=== PATIENT | male | born 1945 ===

== ENCOUNTER 2021-08-27 16:37 | Inpatient (IN) | payer MEDICARE ==
[2021-08-28] MEDS: LORazepam 2 MG/ML VIAL IM SCH ×2 (13:55→19:55)
[2021-08-28] MEDS ORDERED: HALOPERIDOL LACTATE 5 MG/1 ML INJ IM ONE (16:07)
--- NOTE | 2021-08-28 20:01 | Consultation ---
History of Present Illness - Reason for Consult Consult date: 08/28/21 Medical Management Requesting physician: LEE HERNÁNDEZ - History of Present Illness 76 YO Male with Vascular Dementia with Behavioral Disturbance, Cerebral Atherosclerosis, Encephalopathy, SANTA who is currently on Hospice Care. Pt is AND/DNR as per family request(). Pt is admitted to [facility] for psychiatric stabilization. Consult placed by Dr. Hernández for medical management. Patient seen and evaluated in the isolation room. Patient is confused and agitated and unable provide detailed history at time of evaluation. Patient remains agitated. No reports of fever, chills, chest pain, palpitation, productive cough, skin rash, recent contact, known exposure to COVID-19. Patient resting. Patient exhibits tangential thinking with diminished cognition. Past History Past Surgical History: No surgical history, Other (Reviewed) Social history: , lives with family Medications and Allergies Allergies Allergy/AdvReac Type Severity Reaction Status Date / Time No Known Allergies Allergy Verified 08/28/21 22:01 Home Medications Medication Instructions Recorded Confirmed Last Taken Type ALPRAZolam [Xanax TAB] 2 mg PO TID 08/27/21 08/27/21 Unknown History Acetaminophen [Aphen] 650 mg PO Q4HR 08/27/21 08/27/21 Unknown History Docusate Sodium [Colace CAP] 100 mg PO PRN 08/27/21 08/27/21 Unknown History Ferrous Sulfate [Feosol] 325 mg PO TID 08/27/21 08/27/21 Unknown History Folic Acid 1 mg PO DAILY 08/27/21 08/27/21 Unknown History Oxycodone HCl/Acetaminophen 1 tab PO Q6HR PRN 08/27/21 08/27/21 Unknown History [Percocet 10/325 mg] Active Meds: Active Medications Lorazepam (Lorazepam 1 Mg Tab) 1 mg PO Q6H PRN PRN Reason: Anxiety Lorazepam (Lorazepam 2 Mg/Ml Vial) 1 mg IM Q6H [facility] Last Admin: 08/28/21 13:55 Dose: 1 mg Exam - Constitutional General appearance: Present: no acute distress, cachectic - EENT Eyes: Present: PERRL ENT: clear oral mucosa, hearing decreased - Neck Neck: Present: supple, normal ROM - Respiratory Respiratory effort: normal Respiratory: bilateral: CTA - Cardiovascular Rhythm: regular Heart Sounds: Present: S1 & S2. Absent: rub, click - Extremities Extremities: pulses symmetrical, No edema Peripheral Pulses: within normal limits - Abdominal General gastrointestinal: Present: soft, non-tender, non-distended, normal bowel sounds Male genitourinary: Present: normal - Integumentary Integumentary: Present: clear, warm, dry - Musculoskeletal Musculoskeletal: gait normal, strength equal bilaterally - Psychiatric Psychiatric: no appropriate mood/affect, no intact judgment & insight, no memory intact, no cooperative, agitated - Neurologic Neurologic: CNII-XII intact, moves all extremities Assessment and Plan - Patient Problems (1) Vascular dementia with behavioral disturbance Current Visit: Yes Status: Acute Plan to address problem: Verbal prompting, verbal redirection, benzodiazepine therapy as clinically i ndicated. (2) Cerebral atherosclerosis Current Visit: Yes Status: Acute Plan to address problem: Risk factor reduction, antiplatelet therapy as clinically indicated, supportive care. (3) Encephalopathy Current Visit: Yes Status: Acute Plan to address problem: Supportive care, verbal redirection. Chronic in nature. (4) Generalized anxiety disorder Current Visit: Yes Status: Acute Plan to address problem: Benzodiazepine therapy as clinically indicated, continue medical management. (5) Malnutrition Current Visit: Yes Status: Acute Qualifiers: Protein-calorie malnutrition severity: moderate Plan to address problem: Dietary supplementation, increase protein intake. (6) Advance care planning Current Visit: Yes Status: Acute Plan to address problem: Disease education data, care plan discussed, diagnoses discussed, prognosis discussed. Patient is DNR as per request. Patient currently admitted to hospice care. +30 minutes.
[2021-08-29] MEDS: LORazepam 2 MG/ML VIAL IM SCH ×5 (01:36→23:02)
[2021-08-29] MEDS ORDERED: NON-FORMULARY EACH (Oxycodone Hcl/Acetaminophen [Percocet 10/325 Mg] 1 EACH Tablet) PO PRN (08:32)
--- NOTE | 2021-08-29 08:32 | History and Physical Report ---
GP History & Physical - History of Present Illness Date of admission: 08/28/21 Date of Examination: 08/29/21 Reason for Admission: Danger to self, Danger to others, Failure of Outpatient Treatment Chief Complaint: Hallucinations History of Present Illness: The patient is a 76 year old male with history of anxiety who was admitted for altered mental status. Per note, "the patient have been combative, and pushing his down the stairs, patient hallucinating for the past couple of weeks." The patient was seen this morning, he is confused, unable to engage. PAST PSYCHIATRIC HISTORY: Unable to obtain PAST MEDICAL HISTORY: None reported or document Family Psychiatric History: None reported or documented SOCIAL HISTORY Unable to obtain REVIEW OF SYSTEMS Unable to obtain MENTAL STATUS EXAMINATION Unable to obtain Diagnoses: Delusional Disorder Treatment Plan Patient admitted for inpatient psychiatric evaluation, medication adjustment and close monitoring The patient's behavior, mood, sleep and appetite will be closely monitored. Patient enrolled in individual and group therapeutic sessions and encouraged to attend. Patient provided with a safe and structured environment. Patient's physical health needs will be addressed by the Hospitalist. Hospitalist Consulted Labs including CBC, CMP, Lipid profile and Hemoglobin A1C levels ordered for baseline reference Social Assessment will be completed and the Medical Information Specialist will work with patient and family to ensure a suitable and safe disposition Medication adjustment will be made as clinically indicated Continue home meds Usual Wellness Taoism/Preservation: - Start Trazodone 50 mg po QHS & 50 mg po QHS PRN between 10 PM & 2 AM for insomnia - Start Melatonin 5 mg po QHS to promote circadian rhythm The patient agreed on the treatment plan, understood the risk, benefit, alternative treatment, potential consequence of no treatment, and gave informed consent. Estimated days: 7 Post hospital care: primary care provider, psychiatric provider Case staffed with Dr. Herndon Legal Status: InVoluntary Reaction to Hospitalization: Accepting Medications and Allergies Patient Problems: Current Active Problems Advance care planning (Acute) Cerebral atherosclerosis (Acute) Encephalopathy (Acute) Generalized anxiety disorder (Acute) Malnutrition (Acute) Vascular dementia with behavioral disturbance (Acute) Medications and Allergies Allergies Allergy/AdvReac Type Severity Reaction Status Date / Time No Known Allergies Allergy Verified 08/28/21 22:01 Home Medications Medication Instructions Recorded Confirmed Last Taken Type ALPRAZolam [Xanax TAB] 2 mg PO TID 08/27/21 08/27/21 Unknown History Acetaminophen [Aphen] 650 mg PO Q4HR 08/27/21 08/27/21 Unknown History Docusate Sodium [Colace CAP] 100 mg PO PRN 08/27/21 08/27/21 Unknown History Ferrous Sulfate [Feosol] 325 mg PO TID 08/27/21 08/27/21 Unknown History Folic Acid 1 mg PO DAILY 08/27/21 08/27/21 Unknown History Oxycodone HCl/Acetaminophen 1 tab PO Q6HR PRN 08/27/21 08/27/21 Unknown History [Percocet 10/325 mg] Active Meds: Active Medications Lorazepam (Lorazepam 1 Mg Tab) 1 mg PO Q6H PRN PRN Reason: Anxiety Lorazepam (Lorazepam 2 Mg/Ml Vial) 1 mg IM Q6H [facility] Last Admin: 08/29/21 01:36 Dose: 1 mg Results - Results Labs/Vitals: Last Vital Signs Temp 99.1 F 08/28/21 20:43 Pulse 108 H 08/29/21 01:25 Resp 18 08/28/21 20:43 BP 180/69 08/29/21 01:25 Pulse Ox 88 08/28/21 20:43 Physical Examination - Constitutional Vitals: Vital Signs Temp Pulse Resp BP Pulse Ox 99.1 F 108 H 18 180/69 88 08/28/21 20:43 08/29/21 01:25 08/28/21 20:43 08/29/21 01:25 08/28/21 20:43 Temperature -Last 24 Hours Temperature 99.1 F Temperature 97.7 F Mental Status Exam - Vital signs Last Vital Signs Temp 99.1 F 08/28/21 20:43 Pulse 108 H 08/29/21 01:25 Resp 18 08/28/21 20:43 BP 180/69 08/29/21 01:25 Pulse Ox 88 08/28/21 20:43 Physician Certification - Certification Statement Physician Certification Statement: This is an acknowledgement statement that GIANCARLO GILMORE is a 76 year old M who requires inpatient psychiatric admission for treatment which could reasonably be expected to improve the patient's condition for Estimated period of time patient will need to remain in the hospital: [ ] Plan for post-hospital care: [ ]
[2021-08-29] MEDS ORDERED: DOCUSATE SODIUM 100 MG CAP PO SCH (09:00)
[2021-08-29] MEDS ORDERED: ZIPRASIDONE MESYLATE 20 MG VIAL IM PRN (10:30)
[2021-08-29] MEDS: ACETAMINOPHEN 325 MG TAB PO SCH ×4 (12:24→22:58)
[2021-08-29] MEDS: FOLIC ACID 1 MG TAB PO SCH (12:25)
[2021-08-29] MEDS ORDERED: NON-FORMULARY EACH (Alprazolam [Xanax Tab] 2 MG Tablet) PO SCH (14:00)
[2021-08-29] MEDS: FERROUS SULFATE 325 MG TAB PO SCH ×2 (14:22→20:31)
[2021-08-30] MEDS: ACETAMINOPHEN 325 MG TAB PO SCH ×6 (02:05→21:18)
[2021-08-30] MEDS: LORazepam 2 MG/ML VIAL IM SCH ×4 (05:04→23:50)
--- NOTE | 2021-08-30 09:41 | Progress Note ---
Subjective Date of service: 08/30/21 Subjective Comment: 08/30: The patient was seen this morning. He is calm. He continues to be confused. Unable to assess SI/HI/ AVH due to current mentation. Start Haldol 2mg IM BID. REVIEW OF SYSTEMS Unable to obtain MENTAL STATUS EXAMINATION Unable to obtain Diagnoses: Delusional Disorder Treatment Plan Patient admitted for inpatient psychiatric evaluation, medication adjustment and close monitoring The patient's behavior, mood, sleep and appetite will be closely monitored. Patient enrolled in individual and group therapeutic sessions and encouraged to attend. Patient provided with a safe and structured environment. Patient's physical health needs will be addressed by the Hospitalist. Hospitalist Consulted Labs including CBC, CMP, Lipid profile and Hemoglobin A1C levels ordered for baseline reference Social Assessment will be completed and the Sound Assistant will work with patient and family to ensure a suitable and safe disposition Medication adjustment will be made as clinically indicated Continue home meds Usual Wellness Rastafarian/Preservation: - Start Trazodone 50 mg po QHS & 50 mg po QHS PRN between 10 PM & 2 AM for insomnia - Start Melatonin 5 mg po QHS to promote circadian rhythm The patient agreed on the treatment plan, understood the risk, benefit, alternative treatment, potential consequence of no treatment, and gave informed consent. Estimated days: 7 Post hospital care: primary care provider, psychiatric provider Case staffed with Dr. Herndon Legal Status: InVoluntary Reaction to Hospitalization: Accepting Medications and Allergies Medications and Allergies Allergies Allergy/AdvReac Type Severity Reaction Status Date / Time No Known Allergies Allergy Verified 08/28/21 22:01 Home Medications Medication Instructions Recorded Confirmed Last Taken Type ALPRAZolam [Xanax TAB] 2 mg PO TID 08/27/21 08/27/21 Unknown History Acetaminophen [Aphen] 650 mg PO Q4HR 08/27/21 08/27/21 Unknown History Docusate Sodium [Colace CAP] 100 mg PO PRN 08/27/21 08/27/21 Unknown History Ferrous Sulfate [Feosol] 325 mg PO TID 08/27/21 08/27/21 Unknown History Folic Acid 1 mg PO DAILY 08/27/21 08/27/21 Unknown History Oxycodone HCl/Acetaminophen 1 tab PO Q6HR PRN 08/27/21 08/27/21 Unknown History [Percocet 10/325 mg] Active Meds: Active Medications Acetaminophen (Acetaminophen 325 Mg Tab) 650 mg PO Q4HR [facility] Last Admin: 08/30/21 06:16 Dose: 650 mg Docusate Sodium (Docusate Sodium 100 Mg Cap) 100 mg PO PRN [facility] Ferrous Sulfate (Ferrous Sulfate 325 Mg Tab) 325 mg PO TID [facility] Last Admin: 08/29/21 20:31 Dose: 325 mg Folic Acid (Folic Acid 1 Mg Tab) 1 mg PO DAILY [facility] Last Admin: 08/29/21 12:25 Dose: Not Given Lorazepam (Lorazepam 1 Mg Tab) 1 mg PO Q6H PRN PRN Reason: Anxiety Lorazepam (Lorazepam 2 Mg/Ml Vial) 1 mg IM Q6H [facility] Last Admin: 08/30/21 05:04 Dose: 1 mg Oxycodone/Acetaminophen (Oxycodone /Acetaminophen 5-325mg Tab) 1 tab PO Q6H PRN PRN Reason: Pain, Moderate (4-6) Ziprasidone (Ziprasidone Mesylate 20 Mg Vial) 20 mg IM Q4H PRN PRN Reason: Agitation Results - Results Labs/Vitals: Last Vital Signs Temp 97.5 F L 08/29/21 19:32 Pulse 109 H 08/29/21 19:32 Resp 24 08/29/21 19:32 BP 148/73 08/29/21 19:32 Pulse Ox 95 08/29/21 19:32
[2021-08-30] MEDS: FERROUS SULFATE 325 MG TAB PO SCH ×3 (11:14→21:17)
[2021-08-30] MEDS: HALOPERIDOL LACTATE 5 MG/1 ML INJ IM SCH ×2 (11:14→21:23)
[2021-08-30] MEDS: FOLIC ACID 1 MG TAB PO SCH (11:15)
[2021-08-30] MEDS: LORazepam 1 MG TAB PO PRN (16:06)
[2021-08-31] MEDS: ACETAMINOPHEN 325 MG TAB PO SCH ×7 (02:06→22:22)
[2021-08-31] MEDS: LORazepam 2 MG/ML VIAL IM SCH ×4 (05:08→22:28)
[2021-08-31] MEDS: HALOPERIDOL LACTATE 5 MG/1 ML INJ IM SCH ×2 (09:18→22:11)
[2021-08-31] MEDS: FOLIC ACID 1 MG TAB PO SCH (09:19)
[2021-08-31] MEDS: FERROUS SULFATE 325 MG TAB PO SCH ×4 (09:19→22:23)
--- NOTE | 2021-08-31 09:33 | Progress Note ---
Subjective Date of service: 08/31/21 Subjective Comment: 08/31: The patient was seen this morning. the patient is resting quietly in bed. Per nurse, he had an uneventful night. 08/30: The patient was seen this morning. He is calm. He continues to be confused. Unable to assess SI/HI/ AVH due to current mentation. Start Haldol 2mg IM BID. REVIEW OF SYSTEMS Unable to obtain MENTAL STATUS EXAMINATION Unable to obtain Diagnoses: Delusional Disorder Treatment Plan Patient admitted for inpatient psychiatric evaluation, medication adjustment and close monitoring The patient's behavior, mood, sleep and appetite will be closely monitored. Patient enrolled in individual and group therapeutic sessions and encouraged to attend. Patient provided with a safe and structured environment. Patient's physical health needs will be addressed by the Hospitalist. Hospitalist Consulted Labs including CBC, CMP, Lipid profile and Hemoglobin A1C levels ordered for baseline reference Social Assessment will be completed and the Audience Coordinator will work with patient and family to ensure a suitable and safe disposition Medication adjustment will be made as clinically indicated Continue home meds Usual Wellness Anabaptist/Preservation: - Start Trazodone 50 mg po QHS & 50 mg po QHS PRN between 10 PM & 2 AM for insomnia - Start Melatonin 5 mg po QHS to promote circadian rhythm The patient agreed on the treatment plan, understood the risk, benefit, alternative treatment, potential consequence of no treatment, and gave informed consent. Estimated days: 7 Post hospital care: primary care provider, psychiatric provider Case staffed with Dr. Herndon Legal Status: InVoluntary Reaction to Hospitalization: Accepting Medications and Allergies Allergies Allergy/AdvReac Type Severity Reaction Status Date / Time No Known Allergies Allergy Verified 08/28/21 22:01 Home Medications Medication Instructions Recorded Confirmed Last Taken Type ALPRAZolam [Xanax TAB] 2 mg PO TID 08/27/21 08/27/21 Unknown History Acetaminophen [Aphen] 650 mg PO Q4HR 08/27/21 08/27/21 Unknown History Docusate Sodium [Colace CAP] 100 mg PO PRN 08/27/21 08/27/21 Unknown History Ferrous Sulfate [Feosol] 325 mg PO TID 08/27/21 08/27/21 Unknown History Folic Acid 1 mg PO DAILY 08/27/21 08/27/21 Unknown History Oxycodone HCl/Acetaminophen 1 tab PO Q6HR PRN 08/27/21 08/27/21 Unknown History [Percocet 10/325 mg] Active Meds: Active Medications Acetaminophen (Acetaminophen 325 Mg Tab) 650 mg PO Q4HR [facility] Last Admin: 08/31/21 09:19 Dose: 650 mg Docusate Sodium (Docusate Sodium 100 Mg Cap) 100 mg PO PRN [facility] Ferrous Sulfate (Ferrous Sulfate 325 Mg Tab) 325 mg PO TID [facility] Last Admin: 08/31/21 09:19 Dose: 325 mg Folic Acid (Folic Acid 1 Mg Tab) 1 mg PO DAILY [facility] Last Admin: 08/31/21 09:19 Dose: 1 mg Haloperidol Lactate (Haloperidol Lactate 5 Mg/1 Ml Inj) 2 mg IM BID [facility] Last Admin: 08/31/21 09:18 Dose: 2 mg Lorazepam (Lorazepam 1 Mg Tab) 1 mg PO Q6H PRN PRN Reason: Anxiety Last Admin: 08/30/21 16:06 Dose: 1 mg Lorazepam (Lorazepam 2 Mg/Ml Vial) 1 mg IM Q6H [facility] Last Admin: 08/31/21 05:08 Dose: Not Given Oxycodone/Acetaminophen (Oxycodone /Acetaminophen 5-325mg Tab) 1 tab PO Q6H PRN PRN Reason: Pain, Moderate (4-6) Ziprasidone (Ziprasidone Mesylate 20 Mg Vial) 20 mg IM Q4H PRN PRN Reason: Agitation Results - Results Labs/Vitals: Last Vital Signs Temp 97.6 F 08/30/21 19:28 Pulse 92 H 08/30/21 19:28 Resp 20 08/30/21 19:28 BP 126/67 08/30/21 19:28 Pulse Ox 98 08/30/21 19:28
--- NOTE | 2021-08-31 12:00 | Progress Note ---
Assessment and Plan - Patient Problems (1) Vascular dementia with behavioral disturbance Current Visit: Yes Status: Acute Plan to address problem: Verbal prompting, verbal redirection, benzodiazepine therapy as clinically indicated. (2) Cerebral atherosclerosis Current Visit: Yes Status: Acute Plan to address problem: Risk factor reduction, antiplatelet therapy as clinically indicated, supportive care. (3) Encephalopathy Current Visit: Yes Status: Acute Plan to address problem: Supportive care, verbal redirection. Chronic in nature. (4) Generalized anxiety disorder Current Visit: Yes Status: Acute Plan to address problem: Benzodiazepine therapy as clinically indicated, continue medical management. (5) Malnutrition Current Visit: Yes Status: Acute Qualifiers: Protein-calorie malnutrition severity: moderate Plan to address problem: Dietary supplementation, increase protein intake. (6) Advance care planning Current Visit: Yes Status: Acute Plan to address problem: Disease education data, care plan discussed, diagnoses discussed, prognosis discussed. Patient is DNR as per request. Patient currently admitted to hospice care. +30 minutes. History Interval history: 76 YO Male with Vascular Dementia with Behavioral Disturbance, Cerebral Atherosclerosis, Encephalopathy, SANTA who is currently on Hospice Care. Pt is AND/DNR as per family request(). Pt is admitted to [facility] for psychiatric stabilization. Consult placed by Dr. Simmons for medical management. Patient seen and evaluated in the isolation room. Patient mildly agitated. Patient resting. Patient exhibits tangential thinking with diminished cognition. Hospitalist Physical - Constitutional Vitals: Temp Pulse Resp BP Pulse Ox 97.6 F 92 H 20 126/67 98 08/30/21 19:28 08/30/21 19:28 08/30/21 19:28 08/30/21 19:28 08/30/21 19:28 General appearance: Present: no acute distress, cachectic - EENT Eyes: Present: PERRL ENT: hearing decreased - Neck Neck: Present: supple - Respiratory Respiratory effort: normal Respiratory: bilateral: diminished - Cardiovascular Rhythm: regular Heart Sounds: Present: S1 & S2 - Extremities Extremities: no ischemia Peripheral Pulses: within normal limits - Abdominal General gastrointestinal: soft, tender, non-distended - Integumentary Integumentary: Present: clear - Psychiatric Psychiatric: agitated - Neurologic Neurologic: CNII-XII intact Results Tejeda/IV: Voiding Method Diaper Active Medications - Current Medications Current Medications: Generic Name Dose Route Start Last Admin Trade Name Freq PRN Reason Stop Dose Admin Acetaminophen 650 mg 08/29/21 10:00 08/31/21 09:19 Acetaminophen 325 Mg Tab PO 650 mg Q4HR [facility] Administration Docusate Sodium 100 mg 08/29/21 09:00 Docusate Sodium 100 Mg Cap PO PRN [facility] Ferrous Sulfate 325 mg 08/29/21 14:00 08/31/21 09:19 Ferrous Sulfate 325 Mg Tab PO 325 mg TID [facility] Administration Folic Acid 1 mg 08/29/21 10:00 08/31/21 09:19 Folic Acid 1 Mg Tab PO 1 mg DAILY [facility] Administration Haloperidol Lactate 2 mg 08/30/21 10:00 08/31/21 09:18 Haloperidol Lactate 5 Mg/1 Ml Inj IM 2 mg BID [facility] Administration Lorazepam 1 mg 08/28/21 13:10 08/30/21 16:06 Lorazepam 1 Mg Tab PO 1 mg Q6H PRN Administration Anxiety Lorazepam 1 mg 08/29/21 11:00 08/31/21 05:08 Lorazepam 2 Mg/Ml Vial IM Not Given Q6H [facility] Oxycodone/Acetaminophen 1 tab 08/29/21 09:00 Oxycodone /Acetaminophen 5-325mg Tab PO Q6H PRN Pain, Moderate (4-6) Ziprasidone 20 mg 08/29/21 10:30 Ziprasidone Mesylate 20 Mg Vial IM Q4H PRN Agitation
--- NOTE | 2021-08-31 12:04 | Progress Note ---
Assessment and Plan - Patient Problems (1) Vascular dementia with behavioral disturbance Current Visit: Yes Status: Acute Plan to address problem: Verbal prompting, verbal redirection, benzodiazepine therapy as clinically indicated. (2) Cerebral atherosclerosis Current Visit: Yes Status: Acute Plan to address problem: Risk factor reduction, antiplatelet therapy as clinically indicated, supportive care. (3) Encephalopathy Current Visit: Yes Status: Acute Plan to address problem: Supportive care, verbal redirection. Chronic in nature. (4) Generalized anxiety disorder Current Visit: Yes Status: Acute Plan to address problem: Benzodiazepine therapy as clinically indicated, continue medical management. (5) Malnutrition Current Visit: Yes Status: Acute Qualifiers: Protein-calorie malnutrition severity: moderate Plan to address problem: Dietary supplementation, increase protein intake. (6) Advance care planning Current Visit: Yes Status: Acute Plan to address problem: Disease education data, care plan discussed, diagnoses discussed, prognosis discussed. Patient is DNR as per request. Patient currently admitted to hospice care. +30 minutes. History Interval history: 76 YO Male with Vascular Dementia with Behavioral Disturbance, Cerebral Atherosclerosis, Encephalopathy, SANTA who is currently on Hospice Care. Pt is AND/DNR as per family request(). Pt is admitted to [facility] for psychiatric stabilization. Consult placed by Dr. Simmons for medical management. Patient seen and evaluated in his room. Patient agitation/confusion improving. Patient comfortable. Patient exhibits tangential thinking with diminished cognition. Hospitalist Physical - Constitutional Vitals: Temp Pulse Resp BP Pulse Ox 97.6 F 92 H 20 126/67 98 08/30/21 19:28 08/30/21 19:28 08/30/21 19:28 08/30/21 19:28 08/30/21 19:28 General appearance: Present: no acute distress, cachectic - EENT Eyes: Present: PERRL ENT: hearing decreased - Neck Neck: Present: supple - Respiratory Respiratory effort: normal Respiratory: bilateral: diminished - Cardiovascular Rhythm: regular Heart Sounds: Present: S1 & S2 - Extremities Extremities: no ischemia Peripheral Pulses: within normal limits - Abdominal General gastrointestinal: soft, non-tender, non-distended - Integumentary Integumentary: Present: clear, dry - Psychiatric Psychiatric: cooperative - Neurologic Neurologic: CNII-XII intact Results Tejeda/IV: Voiding Method Diaper Active Medications - Current Medications Current Medications: Generic Name Dose Route Start Last Admin Trade Name Rejiq PRN Reason Stop Dose Admin Acetaminophen 650 mg 08/29/21 10:00 08/31/21 09:19 Acetaminophen 325 Mg Tab PO 650 mg Q4HR [facility] Administration Docusate Sodium 100 mg 08/29/21 09:00 Docusate Sodium 100 Mg Cap PO PRN [facility] Ferrous Sulfate 325 mg 08/29/21 14:00 08/31/21 09:19 Ferrous Sulfate 325 Mg Tab PO 325 mg TID [facility] Administration Folic Acid 1 mg 08/29/21 10:00 08/31/21 09:19 Folic Acid 1 Mg Tab PO 1 mg DAILY [facility] Administration Haloperidol Lactate 2 mg 08/30/21 10:00 08/31/21 09:18 Haloperidol Lactate 5 Mg/1 Ml Inj IM 2 mg BID [facility] Administration Lorazepam 1 mg 08/28/21 13:10 08/30/21 16:06 Lorazepam 1 Mg Tab PO 1 mg Q6H PRN Administration Anxiety Lorazepam 1 mg 08/29/21 11:00 08/31/21 05:08 Lorazepam 2 Mg/Ml Vial IM Not Given Q6H [facility] Oxycodone/Acetaminophen 1 tab 08/29/21 09:00 Oxycodone /Acetaminophen 5-325mg Tab PO Q6H PRN Pain, Moderate (4-6) Ziprasidone 20 mg 08/29/21 10:30 Ziprasidone Mesylate 20 Mg Vial IM Q4H PRN Agitation
[2021-08-31] MEDS: oxyCODONE /ACETAMINOPHEN 5-325MG TAB PO PRN (15:27)
[2021-09-01] MEDS: ACETAMINOPHEN 325 MG TAB PO SCH ×7 (04:18→21:32)
[2021-09-01] MEDS: LORazepam 2 MG/ML VIAL IM SCH ×5 (04:20→23:01)
--- NOTE | 2021-09-01 09:28 | Progress Note ---
Subjective Date of service: 09/01/21 Subjective Comment: 09/01:The patient was seen this morning. The patient states " I'm just here." He endorses depression rating as 7-8/10. He denies any current suicidal/homicidal ideation and denies hallucinations. 08/31: The patient was seen this morning. The patient is resting quietly in bed. Per nurse, he had an uneventful night. 08/30: The patient was seen this morning. He is calm. He continues to be confused. Unable to assess SI/HI/ AVH due to current mentation. Start Haldol 2mg IM BID. REVIEW OF SYSTEMS Unable to obtain MENTAL STATUS EXAMINATION Unable to obtain Diagnoses: Delusional Disorder Treatment Plan Patient admitted for inpatient psychiatric evaluation, medication adjustment and close monitoring The patient's behavior, mood, sleep and appetite will be closely monitored. Patient enrolled in individual and group therapeutic sessions and encouraged to attend. Patient provided with a safe and structured environment. Patient's physical health needs will be addressed by the Hospitalist. Hospitalist Consulted Labs including CBC, CMP, Lipid profile and Hemoglobin A1C levels ordered for baseline reference Social Assessment will be completed and the Apple Picker will work with patient and family to ensure a suitable and safe disposition Medication adjustment will be made as clinically indicated Continue home meds Usual Wellness Spiritism/Preservation: - Start Trazodone 50 mg po QHS & 50 mg po QHS PRN between 10 PM & 2 AM for insomnia - Start Melatonin 5 mg po QHS to promote circadian rhythm The patient agreed on the treatment plan, understood the risk, benefit, alternative treatment, potential consequence of no treatment, and gave informed consent. Estimated days: 7 Post hospital care: primary care provider, psychiatric provider Case staffed with Dr. Herndon Legal Status: InVoluntary Reaction to Hospitalization: Accepting Medications and Allergies Medications and Allergies Allergies Allergy/AdvReac Type Severity Reaction Status Date / Time No Known Allergies Allergy Verified 08/28/21 22:01 Home Medications Medication Instructions Recorded Confirmed Last Taken Type ALPRAZolam [Xanax TAB] 2 mg PO TID 08/27/21 08/27/21 Unknown History Acetaminophen [Aphen] 650 mg PO Q4HR 08/27/21 08/27/21 Unknown History Docusate Sodium [Colace CAP] 100 mg PO PRN 08/27/21 08/27/21 Unknown History Ferrous Sulfate [Feosol] 325 mg PO TID 08/27/21 08/27/21 Unknown History Folic Acid 1 mg PO DAILY 08/27/21 08/27/21 Unknown History Oxycodone HCl/Acetaminophen 1 tab PO Q6HR PRN 08/27/21 08/27/21 Unknown History [Percocet 10/325 mg] Active Meds: Active Medications Acetaminophen (Acetaminophen 325 Mg Tab) 650 mg PO Q4HR [facility] Last Admin: 09/01/21 06:13 Dose: 650 mg Docusate Sodium (Docusate Sodium 100 Mg Cap) 100 mg PO PRN [facility] Ferrous Sulfate (Ferrous Sulfate 325 Mg Tab) 325 mg PO TID [facility] Last Admin: 08/31/21 22:23 Dose: 325 mg Folic Acid (Folic Acid 1 Mg Tab) 1 mg PO DAILY [facility] Last Admin: 08/31/21 09:19 Dose: 1 mg Haloperidol Lactate (Haloperidol Lactate 5 Mg/1 Ml Inj) 2 mg IM BID [facility] Last Admin: 08/31/21 22:11 Dose: 2 mg Lorazepam (Lorazepam 1 Mg Tab) 1 mg PO Q6H PRN PRN Reason: Anxiety Last Admin: 08/30/21 16:06 Dose: 1 mg Lorazepam (Lorazepam 2 Mg/Ml Vial) 1 mg IM Q6H [facility] Last Admin: 09/01/21 04:20 Dose: Not Given Oxycodone/Acetaminophen (Oxycodone /Acetaminophen 5-325mg Tab) 1 tab PO Q6H PRN PRN Reason: Pain, Moderate (4-6) Last Admin: 08/31/21 15:27 Dose: 1 tab Ziprasidone (Ziprasidone Mesylate 20 Mg Vial) 20 mg IM Q4H PRN PRN Reason: Agitation Results - Results Labs/Vitals: Last Vital Signs Temp 99.2 F 08/31/21 20:47 Pulse 56 L 08/31/21 20:47 Resp 20 08/31/21 20:47 BP 145/76 08/31/21 20:47 Pulse Ox 97 08/31/21 20:47
[2021-09-01] MEDS: LORazepam 1 MG TAB PO PRN (10:43)
[2021-09-01] MEDS: FOLIC ACID 1 MG TAB PO SCH (10:44)
[2021-09-01] MEDS: FERROUS SULFATE 325 MG TAB PO SCH ×3 (10:44→21:32)
[2021-09-01] MEDS: HALOPERIDOL LACTATE 5 MG/1 ML INJ IM SCH ×2 (10:49→21:38)
[2021-09-01 11:50] LABS: Hematocrit 27.2 % (35.5-45.6); Hemoglobin 8.1 gm/dl (11.8-15.2); Mean Corpuscular HGB Conc 30 % (32-34); Mean Corpuscular Volume 82 fl (84-94); Platelet Count 350 K/mm3 (140-440); Red Blood Count 3.33 M/mm3 (3.65-5.03); Red Cell Distribution Width 18.9 % (13.2-15.2)
[2021-09-01 12:04] LABS: Albumin 3.2 g/dL (3.9-5); Calcium 8.2 mg/dL (8.4-10.2); Chol/HDL Ratio 3.66 %
[2021-09-01 14:34] LABS: Anisocytosis 1+; Basophils % (Manual) 0 % (0.0-1.8); Eosinophils % (Manual) 0 % (0.0-4.3); Hypochromasia 2+; Large Platelets Few; Platelet Estimate Consistent w Auto; Total Cells Counted 100
[2021-09-01] MEDS: oxyCODONE /ACETAMINOPHEN 5-325MG TAB PO PRN (17:13)
--- NOTE | 2021-09-01 19:40 | Progress Note ---
Assessment and Plan - Patient Problems (1) Vascular dementia with behavioral disturbance Current Visit: Yes Status: Acute Plan to address problem: Verbal prompting, verbal redirection, benzodiazepine therapy as clinically indicated. (2) Cerebral atherosclerosis Current Visit: Yes Status: Acute Plan to address problem: Risk factor reduction, antiplatelet therapy as clinically indicated, supportive care. (3) Encephalopathy Current Visit: Yes Status: Acute Plan to address problem: Supportive care, verbal redirection. Chronic in nature. (4) Generalized anxiety disorder Current Visit: Yes Status: Acute Plan to address problem: Benzodiazepine therapy as clinically indicated, continue medical management. (5) Malnutrition Current Visit: Yes Status: Acute Qualifiers: Protein-calorie malnutrition severity: moderate Plan to address problem: Dietary supplementation, increase protein intake. (6) Advance care planning Current Visit: Yes Status: Acute Plan to address problem: Disease education data, care plan discussed, diagnoses discussed, prognosis discussed. Patient is DNR as per request. Patient currently admitted to hospice care. +30 minutes. History Interval history: 76 YO Male with Vascular Dementia with Behavioral Disturbance, Cerebral Atherosclerosis, Encephalopathy, SANTA who is currently on Hospice Care. Pt is AND/DNR as per family request(). Pt is admitted to [facility] for psychiatric stabilization. Consult placed by Dr. Simmons for medical management. Patient seen and evaluated in the recreation room. Patient agitation/confusion improved. Patient remains comfortable. Patient exhibits tangential thinking with diminished cognition. Hospitalist Physical - Constitutional Vitals: Temp Pulse Resp BP Pulse Ox 98.6 F 94 H 18 116/61 98 09/01/21 10:28 09/01/21 10:28 09/01/21 10:28 09/01/21 10:28 09/01/21 10:28 General appearance: Present: no acute distress, cachectic - EENT Eyes: Present: PERRL ENT: hearing decreased - Neck Neck: Present: supple - Respiratory Respiratory effort: normal Respiratory: bilateral: diminished - Cardiovascular Rhythm: regular Heart Sounds: Present: S1 & S2 - Extremities Extremities: no ischemia Peripheral Pulses: within normal limits - Abdominal General gastrointestinal: soft, non-tender, non-distended - Integumentary Integumentary: Present: clear, dry - Psychiatric Psychiatric: cooperative - Neurologic Neurologic: CNII-XII intact Results - Labs CBC & Chem 7: 09/01/21 11:27 09/01/21 11:27 Labs: Laboratory Last Values WBC 3.5 K/mm3 (4.5-11.0) L 09/01/21 11: RBC 3.33 M/mm3 (3.65-5.03) L 09/01/21 11:27 Hgb 8.1 gm/dl (11.8-15.2) L 09/01/21 11: Hct 27.2 % (35.5-45.6) L 09/01/21 11: MCV 82 fl (84-94) L 09/01/21 11: MCH 24 pg (28-32) L 09/01/21 11:27 MCHC 30 % (32-34) L 09/01/21 11: RDW 18.9 % (13.2-15.2) H 09/01/21 11: Plt Count 350 K/mm3 (140-440) 09/01/21 11:27 [place] % (Auto) Set Rider 09/01/21 11:27 Add Manual Diff Complete 09/01/21 11:27 Total Counted 100 09/01/21 11:27 Seg Neuts % (Manual) 65.0 % (40.0-70.0) 09/01/21 11: Band Neutrophils % 1.0 % 09/01/21 11:27 Lymphocytes % (Manual) 15.0 % (13.4-35.0) 09/01/21 11:27 Reactive Lymphs % (Man) 1.0 % 09/01/21 11: Monocytes % (Manual) 17.0 % (0.0-7.3) H 09/01/21 11:27 Eosinophils % (Manual) 0 % (0.0-4.3) 09/01/21 11:27 Basophils % (Manual) 0 % (0.0-1.8) 09/01/21 11:27 Metamyelocytes % 1.0 % 09/01/21 11:27 Myelocytes % 0 % 09/01/21 11:27 Promyelocytes % 0 % 09/01/21 11:27 Blast Cells % 0 % 09/01/21 11:27 Nucleated RBC % Not Reportable 09/01/21 11: Seg Neutrophils # Man 2.3 K/mm3 (1.8-7.7) 09/01/21 11:27 Band Neutrophils # 0.0 K/mm3 09/01/21 11:27 Lymphocytes # (Manual) 0.5 K/mm3 (1.2-5.4) L 09/01/21 11:27 Abs React Lymphs (Man) 0.0 K/mm3 09/01/21 11:27 Monocytes # (Manual) 0.6 K/mm3 (0.0-0.8) 09/01/21 11:27 Eosinophils # (Manual) 0.0 K/mm3 (0.0-0.4) 09/01/21 11:27 Basophils # (Manual) 0.0 K/mm3 (0.0-0.1) 09/01/21 11:27 Metamyelocytes # 0.0 K/mm3 09/01/21 11: Myelocytes # 0.0 K/mm3 09/01/21 11:27 Promyelocytes # 0.0 K/mm3 09/01/21 11:27 Blast Cells # 0.0 K/mm3 09/01/21 11:27 WBC Morphology Not Reportable 09/01/21 11:27 Hypersegmented Neuts Not Reportable 09/01/21 11:27 Hyposegmented Neuts Not Reportable 09/01/21 11:27 Hypogranular Neuts Not Reportable 09/01/21 11:27 Smudge Cells Not Reportable 09/01/21 11:27 Toxic Granulation Not Reportable 09/01/21 11:27 Toxic Vacuolation Not Reportable 09/01/21 11:27 Dohle Bodies Not Reportable 09/01/21 11:27 Pelger-Huet Anomaly Not Reportable 09/01/21 11:27 Jeannine Rods Not Reportable 09/01/21 11:27 Platelet Estimate Consistent w auto 09/01/21 11:27 Clumped Platelets Not Reportable 09/01/21 11:27 Plt Clumps, EDTA Not Reportable 09/01/21 11:27 Large Platelets Few 09/01/21 11:27 Giant Platelets Not Reportable 09/01/21 11:27 Platelet Satelliting Not Reportable 09/01/21 11:27 Plt Morphology Comment Not Reportable 09/01/21 11:27 RBC Morphology Not Reportable 09/01/21 11:27 Dimorphic RBCs Not Reportable 09/01/21 11:27 Polychromasia Not Reportable 09/01/21 11:27 Hypochromasia 2+ 09/01/21 11:27 Poikilocytosis Not Reportable 09/01/21 11:27 Anisocytosis 1+ 09/01/21 11:27 Microcytosis Not Reportable 09/01/21 11:27 Macrocytosis Not Reportable 09/01/21 11:27 Spherocytes Not Reportable 09/01/21 11:27 Pappenheimer Bodies Not Reportable 09/01/21 11:27 Sickle Cells Not Reportable 09/01/21 11:27 Target Cells Not Reportable 09/01/21 11:27 Tear Drop Cells Not Reportable 09/01/21 11:27 Ovalocytes Not Reportable 09/01/21 11:27 Helmet Cells Not Reportable 09/01/21 11:27 Morley-Goessel Bodies Not Reportable 09/01/21 11:27 Samaria Rings Not Reportable 09/01/21 11:27 [place] Cells Not Reportable 09/01/21 11:27 Bite Cells Not Reportable 09/01/21 11:27 Crenated Cell Not Reportable 09/01/21 11:27 Elliptocytes Not Reportable 09/01/21 11:27 Acanthocytes (Spur) Not Reportable 09/01/21 11:27 Rouleaux Not Reportable 09/01/21 11:27 Hemoglobin C Crystals Not Reportable 09/01/21 11:27 Schistocytes Not Reportable 09/01/21 11:27 Malaria parasites Not Reportable 09/01/21 11:27 Oliverio Bodies Not Reportable 09/01/21 11:27 Hem Pathologist Commnt No 09/01/21 11:27 Sodium 139 mmol/L (137-145) 09/01/21 11:27 Potassium 3.4 mmol/L (3.6-5.0) L 09/01/21 11:27 Chloride 102.3 mmol/L (98-107) 09/01/21 11:27 Carbon Dioxide 24 mmol/L (22-30) 09/01/21 11:27 Anion Gap 16 mmol/L 09/01/21 11:27 BUN 21 mg/dL (9-20) H 09/01/21 11:27 Creatinine 1.4 mg/dL (0.8-1.3) H 09/01/21 11:27 Estimated GFR 49 ml/min 09/01/21 11:27 BUN/Creatinine Ratio 15 % 09/01/21 11:27 Glucose 139 mg/dL (75-100) H 09/01/21 11:27 Hemoglobin A1c < 4.0 % (4-6) L 09/01/21 11:27 Calcium 8.2 mg/dL (8.4-10.2) L 09/01/21 11:27 Total Bilirubin 1.30 mg/dL (0.1-1.2) H 09/01/21 11:27 AST 46 units/L (5-40) H 09/01/21 11:27 ALT 17 units/L (7-56) 09/01/21 11:27 Alkaline Phosphatase 41 units/L (35-129) 09/01/21 11:27 Total Protein 6.2 g/dL (6.3-8.2) L 09/01/21 11:27 Albumin 3.2 g/dL (3.9-5) L 09/01/21 11:27 Albumin/Globulin Ratio 1.1 % 09/01/21 11:27 Triglycerides 97 mg/dL (2-149) 09/01/21 11:27 Cholesterol 110 mg/dL (50-199) 09/01/21 11:27 LDL Cholesterol Direct 58 mg/dL (50-130) 09/01/21 11:27 HDL Cholesterol 30 mg/dL (40-59) L 09/01/21 11:27 Cholesterol/HDL Ratio 3.66 % 09/01/21 11:27 TSH 2.720 mlU/mL (0.270-4.200) 09/01/21 11:27 [place]/IV: Voiding Method Incontinent Active Medications - Current Medications Current Medications: Generic Name Dose Route Start Last Admin Trade Name Freq PRN Reason Stop Dose Admin Acetaminophen 650 mg 08/29/21 10:00 09/01/21 17:17 Acetaminophen 325 Mg Tab PO Not Given Q4HR [facility] Docusate Sodium 100 mg 08/29/21 09:00 Docusate Sodium 100 Mg Cap PO PRN [facility] Ferrous Sulfate 325 mg 08/29/21 14:00 09/01/21 17:06 Ferrous Sulfate 325 Mg Tab PO 325 mg TID [facility] Administration Folic Acid 1 mg 08/29/21 10:00 09/01/21 10:44 Folic Acid 1 Mg Tab PO 1 mg DAILY [facility] Administration Haloperidol Lactate 2 mg 08/30/21 10:00 09/01/21 10:49 Haloperidol Lactate 5 Mg/1 Ml Inj IM Not Given BID [facility] Lorazepam 1 mg 08/28/21 13:10 09/01/21 10:43 Lorazepam 1 Mg Tab PO 1 mg Q6H PRN Administration Anxiety Lorazepam 1 mg 08/29/21 11:00 09/01/21 18:05 Lorazepam 2 Mg/Ml Vial IM 1 mg Q6H [facility] Administration Oxycodone/Acetaminophen 1 tab 08/29/21 09:00 09/01/21 17:13 Oxycodone /Acetaminophen 5-325mg Tab PO 1 tab Q6H PRN Administration Pain, Moderate (4-6) Ziprasidone 20 mg 08/29/21 10:30 Ziprasidone Mesylate 20 Mg Vial IM Q4H PRN Agitation
[2021-09-02] MEDS: ACETAMINOPHEN 325 MG TAB PO SCH ×6 (02:44→21:48)
[2021-09-02] MEDS: LORazepam 2 MG/ML VIAL IM SCH ×4 (04:50→22:48)
[2021-09-02] MEDS: FERROUS SULFATE 325 MG TAB PO SCH ×3 (08:00→21:48)
--- NOTE | 2021-09-02 09:39 | Progress Note ---
Subjective Date of service: 09/02/21 Subjective Comment: 09/02:The patient was seen this morning. He is alert and oriented to self. He reports doing well. He denies any current suicidal/homicidal ideation and denies hallucinations. No aggressive behavior reported. 09/01:The patient was seen this morning. The patient states " I'm just here." He endorses depression rating as 7-8/10. He denies any current suicidal/homicidal ideation and denies hallucinations. 08/31: The patient was seen this morning. The patient is resting quietly in bed. Per nurse, he had an uneventful night. 08/30: The patient was seen this morning. He is calm. He continues to be confused. Unable to assess SI/HI/ AVH due to current mentation. Start Haldol 2mg IM BID. REVIEW OF SYSTEMS Unable to obtain MENTAL STATUS EXAMINATION Unable to obtain Diagnoses: Delusional Disorder Treatment Plan Patient admitted for inpatient psychiatric evaluation, medication adjustment and close monitoring The patient's behavior, mood, sleep and appetite will be closely monitored. Patient enrolled in individual and group therapeutic sessions and encouraged to attend. Patient provided with a safe and structured environment. Patient's physical health needs will be addressed by the Hospitalist. Hospitalist Consulted Labs including CBC, CMP, Lipid profile and Hemoglobin A1C levels ordered for baseline reference Social Assessment will be completed and the Embossing Calender Operator will work with patient and family to ensure a suitable and safe disposition Medication adjustment will be made as clinically indicated Continue home meds Usual Wellness [facility]/Preservation: - Start Trazodone 50 mg po QHS & 50 mg po QHS PRN between 10 PM & 2 AM for insomnia - Start Melatonin 5 mg po QHS to promote circadian rhythm The patient agreed on the treatment plan, understood the risk, benefit, alternative treatment, potential consequence of no treatment, and gave informed consent. Estimated days: 2 Post hospital care: primary care provider, psychiatric provider Case staffed with Dr. Herndon Legal Status: InVoluntary Reaction to Hospitalization: Accepting Medications and Allergies Medications and Allergies Allergies Allergy/AdvReac Type Severity Reaction Status Date / Time No Known Allergies Allergy Verified 08/28/21 22:01 Home Medications Medication Instructions Recorded Confirmed Last Taken Type ALPRAZolam [Xanax TAB] 2 mg PO TID 08/27/21 08/27/21 Unknown History Acetaminophen [Aphen] 650 mg PO Q4HR 08/27/21 08/27/21 Unknown History Docusate Sodium [Colace CAP] 100 mg PO PRN 08/27/21 08/27/21 Unknown History Ferrous Sulfate [Feosol] 325 mg PO TID 08/27/21 08/27/21 Unknown History Folic Acid 1 mg PO DAILY 08/27/21 08/27/21 Unknown History Oxycodone HCl/Acetaminophen 1 tab PO Q6HR PRN 08/27/21 08/27/21 Unknown History [Percocet 10/325 mg] Active Meds: Active Medications Acetaminophen (Acetaminophen 325 Mg Tab) 650 mg PO Q4HR [facility] Last Admin: 09/02/21 06:14 Dose: Not Given Docusate Sodium (Docusate Sodium 100 Mg Cap) 100 mg PO PRN [facility] Ferrous Sulfate (Ferrous Sulfate 325 Mg Tab) 325 mg PO TID [facility] Last Admin: 09/01/21 21:32 Dose: 325 mg Folic Acid (Folic Acid 1 Mg Tab) 1 mg PO DAILY [facility] Last Admin: 09/01/21 10:44 Dose: 1 mg Haloperidol (Haloperidol 2 Mg Tab) 2 mg PO BID [facility] Lorazepam (Lorazepam 1 Mg Tab) 1 mg PO Q6H PRN PRN Reason: Anxiety Last Admin: 09/01/21 10:43 Dose: 1 mg Lorazepam (Lorazepam 2 Mg/Ml Vial) 1 mg IM Q6H [facility] Last Admin: 09/02/21 04:50 Dose: Not Given Oxycodone/Acetaminophen (Oxycodone /Acetaminophen 5-325mg Tab) 1 tab PO Q6H PRN PRN Reason: Pain, Moderate (4-6) Last Admin: 09/01/21 17:13 Dose: 1 tab Ziprasidone (Ziprasidone Mesylate 20 Mg Vial) 20 mg IM Q4H PRN PRN Reason: Agitation Results - Results Labs/Vitals: Laboratory Last Values WBC 3.5 K/mm3 (4.5-11.0) L 09/01/21 11:27 RBC 3.33 M/mm3 (3.65-5.03) L 09/01/21 11:27 Hgb 8.1 gm/dl (11.8-15.2) L 09/01/21 11:27 Hct 27.2 % (35.5-45.6) L 09/01/21 11:27 MCV 82 fl (84-94) L 09/01/21 11: MCH 24 pg (28-32) L 09/01/21 11: MCHC 30 % (32-34) L 09/01/21 11: RDW 18.9 % (13.2-15.2) H 09/01/21 11: Plt Count 350 K/mm3 (140-440) 09/01/21 11: [place] % (Auto) Health Care Legal Assistant 09/01/21 11: Add Manual Diff Complete 09/01/21 11:27 Total Counted 100 09/01/21 11:27 Seg Neuts % (Manual) 65.0 % (40.0-70.0) 09/01/21 11: Band Neutrophils % 1.0 % 09/01/21 11: Lymphocytes % (Manual) 15.0 % (13.4-35.0) 09/01/21 11: Reactive Lymphs % (Man) 1.0 % 09/01/21 11: Monocytes % (Manual) 17.0 % (0.0-7.3) H 09/01/21 11:27 Eosinophils % (Manual) 0 % (0.0-4.3) 09/01/21 11: Basophils % (Manual) 0 % (0.0-1.8) 09/01/21 11: Metamyelocytes % 1.0 % 09/01/21 11: Myelocytes % 0 % 09/01/21 11: Promyelocytes % 0 % 09/01/21 11: Blast Cells % 0 % 09/01/21 11: Nucleated RBC % Not Reportable 09/01/21 11: Seg Neutrophils # Man 2.3 K/mm3 (1.8-7.7) 09/01/21 11: Band Neutrophils # 0.0 K/mm3 09/01/21 11: Lymphocytes # (Manual) 0.5 K/mm3 (1.2-5.4) L 09/01/21 11: Abs React Lymphs (Man) 0.0 K/mm3 09/01/21 11: Monocytes # (Manual) 0.6 K/mm3 (0.0-0.8) 09/01/21 11: Eosinophils # (Manual) 0.0 K/mm3 (0.0-0.4) 09/01/21 11:27 Basophils # (Manual) 0.0 K/mm3 (0.0-0.1) 09/01/21 11:27 Metamyelocytes # 0.0 K/mm3 09/01/21 11:27 Myelocytes # 0.0 K/mm3 09/01/21 11:27 Promyelocytes # 0.0 K/mm3 09/01/21 11:27 Blast Cells # 0.0 K/mm3 09/01/21 11:27 WBC Morphology Not Reportable 09/01/21 11:27 Hypersegmented Neuts Not Reportable 09/01/21 11:27 Hyposegmented Neuts Not Reportable 09/01/21 11:27 Hypogranular Neuts Not Reportable 09/01/21 11:27 Smudge Cells Not Reportable 09/01/21 11:27 Toxic Granulation Not Reportable 09/01/21 11:27 Toxic Vacuolation Not Reportable 09/01/21 11:27 Dohle Bodies Not Reportable 09/01/21 11:27 Pelger-Huet Anomaly Not Reportable 09/01/21 11:27 Jeannine Rods Not Reportable 09/01/21 11:27 Platelet Estimate Consistent w auto 09/01/21 11:27 Clumped Platelets Not Reportable 09/01/21 11:27 Plt Clumps, EDTA Not Reportable 09/01/21 11:27 Large Platelets Few 09/01/21 11:27 Giant Platelets Not Reportable 09/01/21 11:27 Platelet Satelliting Not Reportable 09/01/21 11:27 Plt Morphology Comment Not Reportable 09/01/21 11:27 RBC Morphology Not Reportable 09/01/21 11:27 Dimorphic RBCs Not Reportable 09/01/21 11:27 Polychromasia Not Reportable 09/01/21 11:27 Hypochromasia 2+ 09/01/21 11:27 Poikilocytosis Not Reportable 09/01/21 11:27 Anisocytosis 1+ 09/01/21 11:27 Microcytosis Not Reportable 09/01/21 11:27 Macrocytosis Not Reportable 09/01/21 11:27 Spherocytes Not Reportable 09/01/21 11:27 Pappenheimer Bodies Not Reportable 09/01/21 11:27 Sickle Cells Not Reportable 09/01/21 11:27 Target Cells Not Reportable 09/01/21 11:27 Tear Drop Cells Not Reportable 09/01/21 11:27 Ovalocytes Not Reportable 09/01/21 11:27 Helmet Cells Not Reportable 09/01/21 11:27 Morley-Drayton Bodies Not Reportable 09/01/21 11:27 [place] Rings Not Reportable 09/01/21 11:27 [place] Cells Not Reportable 09/01/21 11:27 Bite Cells Not Reportable 09/01/21 11:27 Crenated Cell Not Reportable 09/01/21 11:27 Elliptocytes Not Reportable 09/01/21 11:27 Acanthocytes (Spur) Not Reportable 09/01/21 11:27 Rouleaux Not Reportable 09/01/21 11:27 Hemoglobin C Crystals Not Reportable 09/01/21 11:27 Schistocytes Not Reportable 09/01/21 11:27 Malaria parasites Not Reportable 09/01/21 11:27 Oliverio Bodies Not Reportable 09/01/21 11:27 Hem Pathologist Commnt No 09/01/21 11:27 Sodium 139 mmol/L (137-145) 09/01/21 11:27 Potassium 3.4 mmol/L (3.6-5.0) L 09/01/21 11:27 Chloride 102.3 mmol/L (98-107) 09/01/21 11:27 Carbon Dioxide 24 mmol/L (22-30) 09/01/21 11:27 Anion Gap 16 mmol/L 09/01/21 11:27 BUN 21 mg/dL (9-20) H 09/01/21 11:27 Creatinine 1.4 mg/dL (0.8-1.3) H 09/01/21 11:27 Estimated GFR 49 ml/min 09/01/21 11:27 BUN/Creatinine Ratio 15 % 09/01/21 11:27 Glucose 139 mg/dL (75-100) H 09/01/21 11:27 Hemoglobin A1c < 4.0 % (4-6) L 09/01/21 11:27 Calcium 8.2 mg/dL (8.4-10.2) L 09/01/21 11:27 Total Bilirubin 1.30 mg/dL (0.1-1.2) H 09/01/21 11:27 AST 46 units/L (5-40) H 09/01/21 11:27 ALT 17 units/L (7-56) 09/01/21 11:27 Alkaline Phosphatase 41 units/L (35-129) 09/01/21 11:27 Total Protein 6.2 g/dL (6.3-8.2) L 09/01/21 11:27 Albumin 3.2 g/dL (3.9-5) L 09/01/21 11:27 Albumin/Globulin Ratio 1.1 % 09/01/21 11:27 Triglycerides 97 mg/dL (2-149) 09/01/21 11:27 Cholesterol 110 mg/dL (50-199) 09/01/21 11: LDL Cholesterol Direct 58 mg/dL (50-130) 09/01/21 11: HDL Cholesterol 30 mg/dL (40-59) L 09/01/21 11:27 Cholesterol/HDL Ratio 3.66 % 09/01/21 11:27 TSH 2.720 mlU/mL (0.270-4.200) 09/01/21 11:27 Last Vital Signs Temp 98.4 F 09/01/21 20:43 Pulse 87 09/01/21 20:43 Resp 18 09/01/21 22:32 BP 147/79 09/01/21 20:43 Pulse Ox 97 09/01/21 20:43
[2021-09-02] MEDS: FOLIC ACID 1 MG TAB PO SCH (10:18)
[2021-09-02] MEDS: oxyCODONE /ACETAMINOPHEN 5-325MG TAB PO PRN (10:23)
[2021-09-02] MEDS: HALOPERIDOL 2 MG TAB PO SCH ×2 (10:24→21:48)
[2021-09-02] MEDS: LORazepam 1 MG TAB PO PRN (15:37)
[2021-09-03] MEDS: ACETAMINOPHEN 325 MG TAB PO SCH ×6 (01:46→21:19)
[2021-09-03] MEDS: LORazepam 2 MG/ML VIAL IM SCH ×4 (05:04→22:52)
[2021-09-03] MEDS: FERROUS SULFATE 325 MG TAB PO SCH ×3 (09:11→21:17)
[2021-09-03] MEDS: HALOPERIDOL 2 MG TAB PO SCH ×2 (09:12→21:17)
[2021-09-03] MEDS: FOLIC ACID 1 MG TAB PO SCH (09:12)
--- NOTE | 2021-09-03 11:11 | Progress Note ---
Subjective Date of service: 09/03/21 Subjective Comment: 09/03:The patient was seen this morning. He continues to endorse depression. He denies any current suicidal/homicidal ideation and denies hallucinations. No aggressive behavior reported. No changes made today. 09/02:The patient was seen this morning. He is alert and oriented to self. He reports doing well. He denies any current suicidal/homicidal ideation and denies hallucinations. No aggressive behavior reported. 09/01:The patient was seen this morning. The patient states " I'm just here." He endorses depression rating as 7-8/10. He denies any current suicidal/homicidal ideation and denies hallucinations. 08/31: The patient was seen this morning. The patient is resting quietly in bed. Per nurse, he had an uneventful night. 08/30: The patient was seen this morning. He is calm. He continues to be confused. Unable to assess SI/HI/ AVH due to current mentation. Start Haldol 2mg IM BID. REVIEW OF SYSTEMS Unable to obtain MENTAL STATUS EXAMINATION Unable to obtain Diagnoses: Delusional Disorder Treatment Plan Patient admitted for inpatient psychiatric evaluation, medication adjustment and close monitoring The patient's behavior, mood, sleep and appetite will be closely monitored. Patient enrolled in individual and group therapeutic sessions and encouraged to attend. Patient provided with a safe and structured environment. Patient's physical health needs will be addressed by the Hospitalist. Hospitalist Consulted Labs including CBC, CMP, Lipid profile and Hemoglobin A1C levels ordered for baseline reference Social Assessment will be completed and the Supervisor [employer] will work with patient and family to ensure a suitable and safe disposition Medication adjustment will be made as clinically indicated Continue home meds Usual Wellness Protestant/Preservation: - Start Trazodone 50 mg po QHS & 50 mg po QHS PRN between 10 PM & 2 AM for insomnia - Start Melatonin 5 mg po QHS to promote circadian rhythm The patient agreed on the treatment plan, understood the risk, benefit, alternative treatment, potential consequence of no treatment, and gave informed consent. Estimated days: 2 Post hospital care: primary care provider, psychiatric provider Case staffed with Dr. Herndon Legal Status: InVoluntary Reaction to Hospitalization: Accepting Medications and Allergies Medications and Allergies Allergies Allergy/AdvReac Type Severity Reaction Status Date / Time No Known Allergies Allergy Verified 08/28/21 22:01 Home Medications Medication Instructions Recorded Confirmed Last Taken Type ALPRAZolam [Xanax TAB] 2 mg PO TID 08/27/21 08/27/21 Unknown History Acetaminophen [Aphen] 650 mg PO Q4HR 08/27/21 08/27/21 Unknown History Docusate Sodium [Colace CAP] 100 mg PO PRN 08/27/21 08/27/21 Unknown History Ferrous Sulfate [Feosol] 325 mg PO TID 08/27/21 08/27/21 Unknown History Folic Acid 1 mg PO DAILY 08/27/21 08/27/21 Unknown History Oxycodone HCl/Acetaminophen 1 tab PO Q6HR PRN 08/27/21 08/27/21 Unknown History [Percocet 10/325 mg] Active Meds: Active Medications Acetaminophen (Acetaminophen 325 Mg Tab) 650 mg PO Q4HR [facility] Last Admin: 09/03/21 09:11 Dose: 650 mg Docusate Sodium (Docusate Sodium 100 Mg Cap) 100 mg PO PRN [facility]ULMA Ferrous Sulfate (Ferrous Sulfate 325 Mg Tab) 325 mg PO TID [facility] Last Admin: 09/03/21 09:11 Dose: 325 mg Folic Acid (Folic Acid 1 Mg Tab) 1 mg PO DAILY [facility] Last Admin: 09/03/21 09:12 Dose: 1 mg Haloperidol (Haloperidol 2 Mg Tab) 2 mg PO BID [facility] Last Admin: 09/03/21 09:12 Dose: 2 mg Lorazepam (Lorazepam 1 Mg Tab) 1 mg PO Q6H PRN PRN Reason: Anxiety Last Admin: 09/02/21 15:37 Dose: 1 mg Lorazepam (Lorazepam 2 Mg/Ml Vial) 1 mg IM Q6H [facility] Last Admin: 09/03/21 05:04 Dose: Not Given Oxycodone/Acetaminophen (Oxycodone /Acetaminophen 5-325mg Tab) 1 tab PO Q6H PRN PRN Reason: Pain, Moderate (4-6) Last Admin: 09/02/21 10:23 Dose: 1 tab Ziprasidone (Ziprasidone Mesylate 20 Mg Vial) 20 mg IM Q4H PRN PRN Reason: Agitation Results - Results Labs/Vitals: Laboratory Last Values WBC 3.5 K/mm3 (4.5-11.0) L 09/01/21 11:27 RBC 3.33 M/mm3 (3.65-5.03) L 09/01/21 11:27 Hgb 8.1 gm/dl (11.8-15.2) L 09/01/21 11: Hct 27.2 % (35.5-45.6) L 09/01/21 11: MCV 82 fl (84-94) L 09/01/21 11: MCH 24 pg (28-32) L 09/01/21 11: MCHC 30 % (32-34) L 09/01/21 11: RDW 18.9 % (13.2-15.2) H 09/01/21 11:27 Plt Count 350 K/mm3 (140-440) 09/01/21 11: [place] % (Auto) Electrical Engineering Draftsperson 09/01/21 11: Add Manual Diff Complete 09/01/21 11: Total Counted 100 09/01/21 11: Seg Neuts % (Manual) 65.0 % (40.0-70.0) 09/01/21 11: Band Neutrophils % 1.0 % 09/01/21 11: Lymphocytes % (Manual) 15.0 % (13.4-35.0) 09/01/21 11:27 Reactive Lymphs % (Man) 1.0 % 09/01/21 11: Monocytes % (Manual) 17.0 % (0.0-7.3) H 09/01/21 11: Eosinophils % (Manual) 0 % (0.0-4.3) 09/01/21 11: Basophils % (Manual) 0 % (0.0-1.8) 09/01/21 11: Metamyelocytes % 1.0 % 09/01/21 11:27 Myelocytes % 0 % 09/01/21 11:27 Promyelocytes % 0 % 09/01/21 11:27 Blast Cells % 0 % 09/01/21 11: Nucleated RBC % Not Reportable 09/01/21 11: Seg Neutrophils # Man 2.3 K/mm3 (1.8-7.7) 09/01/21 11: Band Neutrophils # 0.0 K/mm3 09/01/21 11:27 Lymphocytes # (Manual) 0.5 K/mm3 (1.2-5.4) L 09/01/21 11:27 Abs React Lymphs (Man) 0.0 K/mm3 09/01/21 11:27 Monocytes # (Manual) 0.6 K/mm3 (0.0-0.8) 09/01/21 11:27 Eosinophils # (Manual) 0.0 K/mm3 (0.0-0.4) 09/01/21 11: Basophils # (Manual) 0.0 K/mm3 (0.0-0.1) 09/01/21 11:27 Metamyelocytes # 0.0 K/mm3 09/01/21 11:27 Myelocytes # 0.0 K/mm3 09/01/21 11:27 Promyelocytes # 0.0 K/mm3 09/01/21 11:27 Blast Cells # 0.0 K/mm3 09/01/21 11:27 WBC Morphology Not Reportable 09/01/21 11:27 Hypersegmented Neuts Not Reportable 09/01/21 11:27 Hyposegmented Neuts Not Reportable 09/01/21 11:27 Hypogranular Neuts Not Reportable 09/01/21 11:27 Smudge Cells Not Reportable 09/01/21 11:27 Toxic Granulation Not Reportable 09/01/21 11:27 Toxic Vacuolation Not Reportable 09/01/21 11:27 Dohle Bodies Not Reportable 09/01/21 11:27 Pelger-Huet Anomaly Not Reportable 09/01/21 11:27 Jeannine Rods Not Reportable 09/01/21 11:27 Platelet Estimate Consistent w auto 09/01/21 11:27 Clumped Platelets Not Reportable 09/01/21 11:27 Plt Clumps, EDTA Not Reportable 09/01/21 11:27 Large Platelets Few 09/01/21 11:27 Giant Platelets Not Reportable 09/01/21 11:27 Platelet Satelliting Not Reportable 09/01/21 11:27 Plt Morphology Comment Not Reportable 09/01/21 11:27 RBC Morphology Not Reportable 09/01/21 11:27 Dimorphic RBCs Not Reportable 09/01/21 11:27 Polychromasia Not Reportable 09/01/21 11:27 Hypochromasia 2+ 09/01/21 11:27 Poikilocytosis Not Reportable 09/01/21 11:27 Anisocytosis 1+ 09/01/21 11:27 Microcytosis Not Reportable 09/01/21 11:27 Macrocytosis Not Reportable 09/01/21 11:27 Spherocytes Not Reportable 09/01/21 11:27 Pappenheimer Bodies Not Reportable 09/01/21 11:27 Sickle Cells Not Reportable 09/01/21 11:27 Target Cells Not Reportable 09/01/21 11:27 Tear Drop Cells Not Reportable 09/01/21 11:27 Ovalocytes Not Reportable 09/01/21 11:27 Helmet Cells Not Reportable 09/01/21 11:27 [place] Bodies Not Reportable 09/01/21 11:27 [place] Rings Not Reportable 09/01/21 11:27 [place] Cells Not Reportable 09/01/21 11:27 Bite Cells Not Reportable 09/01/21 11:27 Crenated Cell Not Reportable 09/01/21 11:27 Elliptocytes Not Reportable 09/01/21 11:27 Acanthocytes (Spur) Not Reportable 09/01/21 11:27 Rouleaux Not Reportable 09/01/21 11:27 Hemoglobin C Crystals Not Reportable 09/01/21 11:27 Schistocytes Not Reportable 09/01/21 11:27 Malaria parasites Not Reportable 09/01/21 11:27 Oliverio Bodies Not Reportable 09/01/21 11:27 Hem Pathologist Commnt No 09/01/21 11:27 Sodium 139 mmol/L (137-145) 09/01/21 11:27 Potassium 3.4 mmol/L (3.6-5.0) L 09/01/21 11:27 Chloride 102.3 mmol/L (98-107) 09/01/21 11:27 Carbon Dioxide 24 mmol/L (22-30) 09/01/21 11:27 Anion Gap 16 mmol/L 09/01/21 11:27 BUN 21 mg/dL (9-20) H 09/01/21 11:27 Creatinine 1.4 mg/dL (0.8-1.3) H 09/01/21 11:27 Estimated GFR 49 ml/min 09/01/21 11:27 BUN/Creatinine Ratio 15 % 09/01/21 11:27 Glucose 139 mg/dL (75-100) H 09/01/21 11:27 Hemoglobin A1c < 4.0 % (4-6) L 09/01/21 11:27 Calcium 8.2 mg/dL (8.4-10.2) L 09/01/21 11:27 Total Bilirubin 1.30 mg/dL (0.1-1.2) H 09/01/21 11:27 AST 46 units/L (5-40) H 09/01/21 11:27 ALT 17 units/L (7-56) 09/01/21 11:27 Alkaline Phosphatase 41 units/L (35-129) 09/01/21 11:27 Total Protein 6.2 g/dL (6.3-8.2) L 09/01/21 11:27 Albumin 3.2 g/dL (3.9-5) L 09/01/21 11:27 Albumin/Globulin Ratio 1.1 % 09/01/21 11:27 Triglycerides 97 mg/dL (2-149) 09/01/21 11:27 Cholesterol 110 mg/dL (50-199) 09/01/21 11:27 LDL Cholesterol Direct 58 mg/dL (50-130) 09/01/21 11:27 HDL Cholesterol 30 mg/dL (40-59) L 09/01/21 11:27 Cholesterol/HDL Ratio 3.66 % 09/01/21 11:27 TSH 2.720 mlU/mL (0.270-4.200) 09/01/21 11:27 Last Vital Signs Temp 97.5 F L 09/03/21 09:03 Pulse 84 09/03/21 09:03 Resp 18 09/03/21 09:11 BP 102/55 09/03/21 09:03 Pulse Ox 98 09/03/21 09:03
[2021-09-03] MEDS: oxyCODONE /ACETAMINOPHEN 5-325MG TAB PO PRN ×2 (11:38→21:17)
[2021-09-03] MEDS: LORazepam 1 MG TAB PO PRN (21:17)
[2021-09-04] MEDS: ACETAMINOPHEN 325 MG TAB PO SCH ×6 (02:21→22:08)
[2021-09-04] MEDS: oxyCODONE /ACETAMINOPHEN 5-325MG TAB PO PRN ×2 (05:33→19:39)
[2021-09-04] MEDS: LORazepam 1 MG TAB PO PRN ×3 (05:34→19:40)
[2021-09-04] MEDS: LORazepam 2 MG/ML VIAL IM SCH ×2 (05:39→13:09)
--- NOTE | 2021-09-04 08:17 | Progress Note ---
Assessment and Plan Assessment and Plan - Patient Problems (1) Vascular dementia with behavioral disturbance Current Visit: Yes Status: Acute Plan to address problem: Verbal prompting, verbal redirection, benzodiazepine therapy as clinically indicated. (2) Cerebral atherosclerosis Current Visit: Yes Status: Acute Plan to address problem: Risk factor reduction, antiplatelet therapy as clinically indicated, supportive care. (3) Encephalopathy Current Visit: Yes Status: Acute Plan to address problem: Supportive care, verbal redirection. Chronic in nature. (4) Generalized anxiety disorder Current Visit: Yes Status: Acute Plan to address problem: Benzodiazepine therapy as clinically indicated, continue medical management. (5) Malnutrition Current Visit: Yes Status: Acute Qualifiers: Protein-calorie malnutrition severity: moderate Plan to address problem: Dietary supplementation, increase protein intake. (6) Advance care planning Current Visit: Yes Status: Acute Plan to address problem: Disease education data, care plan discussed, diagnoses discussed, prognosis discussed. Patient is DNR as per request. Patient currently admitted to hospice care. +30 minutes. Subjective Date of service: 09/02/21 Principal diagnosis: Dementia with behavioral disturbances Interval history: History Interval history: 76 YO Male with Vascular Dementia with Behavioral Disturbance, Cerebral At herosclerosis, Encephalopathy, SANTA who is currently on Hospice Care. Pt is AND/DNR as per family request(). Pt is admitted to [facility] for psychiatric stabilization. Consult placed by Dr. Simmons for medical management. Patient seen and evaluated in the recreation room. Patient agitati on/confusion improved. Patient remains comfortable. Patient exhibits tangential thinking with diminished cognition. Objective - Constitutional Vitals: Vital Signs - 12hr 09/03/21 09/04/21 09/04/21 21:17 02:21 05:33 Respiratory 18 18 18 Rate General appearance: Present: no acute distress, well-nourished - EENT Eyes: PERRL, EOM intact ENT: hearing intact, clear oral mucosa Ears: bilateral: normal - Neck Neck: supple, normal ROM - Respiratory Respiratory effort: normal Respiratory: bilateral: CTA - Breasts Breasts: normal - Cardiovascular Heart rate: 68 Rhythm: regular Heart Sounds: Present: S1 & S2. Absent: gallop, rub Extremities: pulses intact, No edema, normal color, Full ROM - Gastrointestinal General gastrointestinal: Present: soft, non-tender, non-distended, normal bowel sounds - Genitourinary Male genitourinary: normal - Integumentary Integumentary: clear, warm, dry - Musculoskeletal Musculoskeletal: 1, strength equal bilaterally - Neurologic Neurologic: moves all extremities - Psychiatric Psychiatric: memory intact, appropriate mood/affect, intact judgment & insight - Labs CBC & Chem 7: 09/01/21 11:27 09/01/21 11:27
[2021-09-04] MEDS: FOLIC ACID 1 MG TAB PO SCH (09:36)
[2021-09-04] MEDS: FERROUS SULFATE 325 MG TAB PO SCH ×4 (09:36→22:09)
[2021-09-04] MEDS: HALOPERIDOL 2 MG TAB PO SCH ×2 (09:36→22:08)
--- NOTE | 2021-09-04 09:43 | Progress Note ---
Subjective Date of service: 09/04/21 Principal diagnosis: Dementia with behavioral disturbances Subjective Comment: 09/04:The patient was seen at breakfast today. He continues to endorse depression. He denies any current suicidal/homicidal ideation and denies hallucinations. No aggressive behavior reported. No changes made today. 09/03:The patient was seen this morning. He continues to endorse depression. He denies any current suicidal/homicidal ideation and denies hallucinations. No aggressive behavior reported. No changes made today. 09/02:The patient was seen this morning. He is alert and oriented to self. He reports doing well. He denies any current suicidal/homicidal ideation and denies hallucinations. No aggressive behavior reported. 09/01:The patient was seen this morning. The patient states " I'm just here." He endorses depression rating as 7-8/10. He denies any current suicidal/homicidal ideation and denies hallucinations. 08/31: The patient was seen this morning. The patient is resting quietly in bed. Per nurse, he had an uneventful night. 08/30: The patient was seen this morning. He is calm. He continues to be confused. Unable to assess SI/HI/ AVH due to current mentation. Start Haldol 2mg IM BID. REVIEW OF SYSTEMS Unable to obtain MENTAL STATUS EXAMINATION Unable to obtain Diagnoses: Delusional Disorder Treatment Plan Patient admitted for inpatient psychiatric evaluation, medication adjustment and close monitoring The patient's behavior, mood, sleep and appetite will be closely monitored. Patient enrolled in individual and group therapeutic sessions and encouraged to attend. Patient provided with a safe and structured environment. Patient's physical health needs will be addressed by the Hospitalist. Hospitalist Consulted Labs including CBC, CMP, Lipid profile and Hemoglobin A1C levels ordered for baseline reference Social Assessment will be completed and the Director [place] will work with patient and family to ensure a suitable and safe disposition Medication adjustment will be made as clinically indicated Continue home meds Usual Wellness Anabaptist/Preservation: - Start Trazodone 50 mg po QHS & 50 mg po QHS PRN between 10 PM & 2 AM for insomnia - Start Melatonin 5 mg po QHS to promote circadian rhythm The patient agreed on the treatment plan, understood the risk, benefit, alternative treatment, potential consequence of no treatment, and gave informed consent. Estimated days: 2 Post hospital care: primary care provider, psychiatric provider Case staffed with Dr. Herndon Legal Status: InVoluntary Reaction to Hospitalization: Accepting Medications and Allergies Medications and Allergies Allergies Allergy/AdvReac Type Severity Reaction Status Date / Time No Known Allergies Allergy Verified 08/28/21 22:01 Home Medications Medication Instructions Recorded Confirmed Last Taken Type ALPRAZolam [Xanax TAB] 2 mg PO TID 08/27/21 08/27/21 Unknown History Acetaminophen [Aphen] 650 mg PO Q4HR 08/27/21 08/27/21 Unknown History Docusate Sodium [Colace CAP] 100 mg PO PRN 08/27/21 08/27/21 Unknown History Ferrous Sulfate [Feosol] 325 mg PO TID 08/27/21 08/27/21 Unknown History Folic Acid 1 mg PO DAILY 08/27/21 08/27/21 Unknown History Oxycodone HCl/Acetaminophen 1 tab PO Q6HR PRN 08/27/21 08/27/21 Unknown History [Percocet 10/325 mg] Active Meds: Active Medications Acetaminophen (Acetaminophen 325 Mg Tab) 650 mg PO Q4HR [facility] Last Admin: 09/04/21 09:36 Dose: 650 mg Docusate Sodium (Docusate Sodium 100 Mg Cap) 100 mg PO PRN [facility] Ferrous Sulfate (Ferrous Sulfate 325 Mg Tab) 325 mg PO TID [facility] Last Admin: 09/04/21 09:36 Dose: 325 mg Folic Acid (Folic Acid 1 Mg Tab) 1 mg PO DAILY [facility] Last Admin: 09/04/21 09:36 Dose: 1 mg Haloperidol (Haloperidol 2 Mg Tab) 2 mg PO BID [facility] Last Admin: 09/04/21 09:36 Dose: 2 mg Lorazepam (Lorazepam 1 Mg Tab) 1 mg PO Q6H PRN PRN Reason: Anxiety Last Admin: 09/04/21 05:34 Dose: 1 mg Lorazepam (Lorazepam 2 Mg/Ml Vial) 1 mg IM Q6H [facility] Last Admin: 09/04/21 05:39 Dose: Not Given Oxycodone/Acetaminophen (Oxycodone /Acetaminophen 5-325mg Tab) 1 tab PO Q6H PRN PRN Reason: Pain, Moderate (4-6) Last Admin: 09/04/21 05:33 Dose: 1 tab Ziprasidone (Ziprasidone Mesylate 20 Mg Vial) 20 mg IM Q4H PRN PRN Reason: Agitation Results - Results Labs/Vitals: Laboratory Last Values WBC 3.5 K/mm3 (4.5-11.0) L 09/01/21 11: RBC 3.33 M/mm3 (3.65-5.03) L 09/01/21 11:27 Hgb 8.1 gm/dl (11.8-15.2) L 09/01/21 11:27 Hct 27.2 % (35.5-45.6) L 09/01/21 11: MCV 82 fl (84-94) L 09/01/21 11:27 MCH 24 pg (28-32) L 09/01/21 11:27 MCHC 30 % (32-34) L 09/01/21 11: RDW 18.9 % (13.2-15.2) H 09/01/21 11:27 Plt Count 350 K/mm3 (140-440) 09/01/21 11:27 [place] % (Auto) Sales Representative Advertising 09/01/21 11:27 Add Manual Diff Complete 09/01/21 11:27 Total Counted 100 09/01/21 11:27 Seg Neuts % (Manual) 65.0 % (40.0-70.0) 09/01/21 11: Band Neutrophils % 1.0 % 09/01/21 11:27 Lymphocytes % (Manual) 15.0 % (13.4-35.0) 09/01/21 11:27 Reactive Lymphs % (Man) 1.0 % 09/01/21 11:27 Monocytes % (Manual) 17.0 % (0.0-7.3) H 09/01/21 11:27 Eosinophils % (Manual) 0 % (0.0-4.3) 09/01/21 11:27 Basophils % (Manual) 0 % (0.0-1.8) 09/01/21 11:27 Metamyelocytes % 1.0 % 09/01/21 11:27 Myelocytes % 0 % 09/01/21 11:27 Promyelocytes % 0 % 09/01/21 11:27 Blast Cells % 0 % 09/01/21 11:27 Nucleated RBC % Not Reportable 09/01/21 11:27 Seg Neutrophils # Man 2.3 K/mm3 (1.8-7.7) 09/01/21 11:27 Band Neutrophils # 0.0 K/mm3 09/01/21 11:27 Lymphocytes # (Manual) 0.5 K/mm3 (1.2-5.4) L 09/01/21 11:27 Abs React Lymphs (Man) 0.0 K/mm3 09/01/21 11:27 Monocytes # (Manual) 0.6 K/mm3 (0.0-0.8) 09/01/21 11: Eosinophils # (Manual) 0.0 K/mm3 (0.0-0.4) 09/01/21 11:27 Basophils # (Manual) 0.0 K/mm3 (0.0-0.1) 09/01/21 11:27 Metamyelocytes # 0.0 K/mm3 09/01/21 11: Myelocytes # 0.0 K/mm3 09/01/21 11:27 Promyelocytes # 0.0 K/mm3 09/01/21 11:27 Blast Cells # 0.0 K/mm3 09/01/21 11:27 WBC Morphology Not Reportable 09/01/21 11:27 Hypersegmented Neuts Not Reportable 09/01/21 11:27 Hyposegmented Neuts Not Reportable 09/01/21 11:27 Hypogranular Neuts Not Reportable 09/01/21 11:27 Smudge Cells Not Reportable 09/01/21 11:27 Toxic Granulation Not Reportable 09/01/21 11:27 Toxic Vacuolation Not Reportable 09/01/21 11:27 Dohle Bodies Not Reportable 09/01/21 11:27 Pelger-Huet Anomaly Not Reportable 09/01/21 11:27 Jeannine Rods Not Reportable 09/01/21 11:27 Platelet Estimate Consistent w auto 09/01/21 11:27 Clumped Platelets Not Reportable 09/01/21 11:27 Plt Clumps, EDTA Not Reportable 09/01/21 11:27 Large Platelets Few 09/01/21 11:27 Giant Platelets Not Reportable 09/01/21 11:27 Platelet Satelliting Not Reportable 09/01/21 11:27 Plt Morphology Comment Not Reportable 09/01/21 11:27 RBC Morphology Not Reportable 09/01/21 11:27 Dimorphic RBCs Not Reportable 09/01/21 11:27 Polychromasia Not Reportable 09/01/21 11:27 Hypochromasia 2+ 09/01/21 11:27 Poikilocytosis Not Reportable 09/01/21 11:27 Anisocytosis 1+ 09/01/21 11:27 Microcytosis Not Reportable 09/01/21 11:27 Macrocytosis Not Reportable 09/01/21 11:27 Spherocytes Not Reportable 09/01/21 11:27 Pappenheimer Bodies Not Reportable 09/01/21 11:27 Sickle Cells Not Reportable 09/01/21 11:27 Target Cells Not Reportable 09/01/21 11:27 Tear Drop Cells Not Reportable 09/01/21 11:27 Ovalocytes Not Reportable 09/01/21 11:27 Helmet Cells Not Reportable 09/01/21 11:27 [place] Bodies Not Reportable 09/01/21 11:27 [place] Rings Not Reportable 09/01/21 11:27 [place] Cells Not Reportable 09/01/21 11:27 Bite Cells Not Reportable 09/01/21 11:27 Crenated Cell Not Reportable 09/01/21 11:27 Elliptocytes Not Reportable 09/01/21 11:27 Acanthocytes (Spur) Not Reportable 09/01/21 11:27 Rouleaux Not Reportable 09/01/21 11:27 Hemoglobin C Crystals Not Reportable 09/01/21 11:27 Schistocytes Not Reportable 09/01/21 11:27 Malaria parasites Not Reportable 09/01/21 11:27 Oliverio Bodies Not Reportable 09/01/21 11:27 Hem Pathologist Commnt No 09/01/21 11:27 Sodium 139 mmol/L (137-145) 09/01/21 11:27 Potassium 3.4 mmol/L (3.6-5.0) L 09/01/21 11:27 Chloride 102.3 mmol/L (98-107) 09/01/21 11:27 Carbon Dioxide 24 mmol/L (22-30) 09/01/21 11:27 Anion Gap 16 mmol/L 09/01/21 11:27 BUN 21 mg/dL (9-20) H 09/01/21 11:27 Creatinine 1.4 mg/dL (0.8-1.3) H 09/01/21 11:27 Estimated GFR 49 ml/min 09/01/21 11:27 BUN/Creatinine Ratio 15 % 09/01/21 11:27 Glucose 139 mg/dL (75-100) H 09/01/21 11:27 Hemoglobin A1c < 4.0 % (4-6) L 09/01/21 11:27 Calcium 8.2 mg/dL (8.4-10.2) L 09/01/21 11:27 Total Bilirubin 1.30 mg/dL (0.1-1.2) H 09/01/21 11:27 AST 46 units/L (5-40) H 09/01/21 11:27 ALT 17 units/L (7-56) 09/01/21 11:27 Alkaline Phosphatase 41 units/L (35-129) 09/01/21 11:27 Total Protein 6.2 g/dL (6.3-8.2) L 09/01/21 11:27 Albumin 3.2 g/dL (3.9-5) L 09/01/21 11:27 Albumin/Globulin Ratio 1.1 % 09/01/21 11:27 Triglycerides 97 mg/dL (2-149) 09/01/21 11:27 Cholesterol 110 mg/dL (50-199) 09/01/21 11:27 LDL Cholesterol Direct 58 mg/dL (50-130) 09/01/21 11:27 HDL Cholesterol 30 mg/dL (40-59) L 09/01/21 11:27 Cholesterol/HDL Ratio 3.66 % 09/01/21 11:27 TSH 2.720 mlU/mL (0.270-4.200) 09/01/21 11:27 Last Vital Signs Temp 97.9 F 09/04/21 08:47 Pulse 80 09/04/21 08:47 Resp 18 09/04/21 08:47 BP 107/53 09/04/21 08:47 Pulse Ox 98 09/04/21 08:47
--- NOTE | 2021-09-04 17:02 | Progress Note ---
Assessment and Plan Assessment and plan: (1) Vascular dementia with behavioral disturbance Current Visit: Yes Status: Acute Plan to address problem: Verbal prompting, verbal redirection, benzodiazepine therapy as clinically indicated. (2) Cerebral atherosclerosis Current Visit: Yes Status: Acute Plan to address problem: Risk factor reduction, antiplatelet therapy as clinically indicated, supportive care. (3) Encephalopathy Current Visit: Yes Status: Acute Plan to address problem: Supportive care, verbal redirection. Chronic in nature. (4) Generalized anxiety disorder Current Visit: Yes Status: Acute Plan to address problem: Benzodiazepine therapy as clinically indicated, continue medical management. (5) Malnutrition Current Visit: Yes Status: Acute Qualifiers: Protein-calorie malnutrition severity: moderate Plan to address problem: Dietary supplementation, increase protein intake. ? History of cancer of the pancreas according to patient -Continue pain control. (6) Advance care planning Current Visit: Yes Status: Acute Plan to address problem: Disease education data, care plan discussed, diagnoses discussed, prognosis discussed. Patient is DNR as per request. Patient currently admitted to hospice care. +30 minutes. Continue supportive care History Interval history: 76 YO Male with Vascular Dementia with Behavioral Disturbance, Cerebral Atherosclerosis, Encephalopathy, SANTA who is currently on Hospice Care. Pt is AND/DNR as per family request(). Pt is admitted to [facility] for psychiatric stabilization. Consult placed by Dr. Simmons for medical management. Patient seen and evaluated in the recreation room. Patient agitation/confusion improved. Patient remains comfortable. Patient exhibits tangential thinking with diminished cognition Patient tells me that he has cancer and complaints of abdominal pain states that his cancer pain is killing him. Hospitalist Physical - Physical exam Narrative exam: VITAL SIGNS: Reviewed. GENERAL: The patient appears normally developed, Vital signs as documented. HEAD: No signs of head trauma. EYES: Pupils are equal. Extraocular motions intact. EARS: Hearing grossly intact. MOUTH: Oropharynx is normal. NECK: No adenopathy, no JVD. CHEST: Chest with clear breath sounds bilaterally. No wheezes, rales, or rhonchi. CARDIAC: Regular rate and rhythm. S1 and S2, without murmurs, gallops, or rubs. VASCULAR: No Edema. Peripheral pulses normal and equal in all extremities. ABDOMEN: Soft, non tender and non distended. No rebound or guarding, and no masses palpated. Bowel Sounds normal. MUSCULOSKELETAL: Good range of motion of all major joints. Extremities without clubbing, cyanosis or edema. NEUROLOGIC EXAM: Alert and oriented x 3 No focal sensory or strength deficits. Speech normal. Follows commands. PSYCHIATRIC: Mood normal. SKIN: detail exam as documented in skin assessment - Constitutional Vitals: Temp Pulse Resp BP Pulse Ox 97.9 F 80 18 107/53 98 09/04/21 08:47 09/04/21 08:47 09/04/21 08:47 09/04/21 08:47 09/04/21 08:47 General appearance: Present: no acute distress, well-nourished Results - Labs CBC & Chem 7: 09/01/21 11:27 09/01/21 11:27 Labs: Laboratory Last Values WBC 3.5 K/mm3 (4.5-11.0) L 09/01/21 11:27 RBC 3.33 M/mm3 (3.65-5.03) L 09/01/21 11:27 Hgb 8.1 gm/dl (11.8-15.2) L 09/01/21 11:27 Hct 27.2 % (35.5-45.6) L 09/01/21 11:27 MCV 82 fl (84-94) L 09/01/21 11:27 MCH 24 pg (28-32) L 09/01/21 11:27 MCHC 30 % (32-34) L 09/01/21 11:27 RDW 18.9 % (13.2-15.2) H 09/01/21 11:27 Plt Count 350 K/mm3 (140-440) 09/01/21 11:27 [place] % (Auto) Cylinder Grinder 09/01/21 11:27 Add Manual Diff Complete 09/01/21 11:27 Total Counted 100 09/01/21 11:27 Seg Neuts % (Manual) 65.0 % (40.0-70.0) 09/01/21 11:27 Band Neutrophils % 1.0 % 09/01/21 11:27 Lymphocytes % (Manual) 15.0 % (13.4-35.0) 09/01/21 11:27 Reactive Lymphs % (Man) 1.0 % 09/01/21 11:27 Monocytes % (Manual) 17.0 % (0.0-7.3) H 09/01/21 11:27 Eosinophils % (Manual) 0 % (0.0-4.3) 09/01/21 11: Basophils % (Manual) 0 % (0.0-1.8) 09/01/21 11: Metamyelocytes % 1.0 % 09/01/21 11:27 Myelocytes % 0 % 09/01/21 11:27 Promyelocytes % 0 % 09/01/21 11: Blast Cells % 0 % 09/01/21 11: Nucleated RBC % Not Reportable 09/01/21 11:27 Seg Neutrophils # Man 2.3 K/mm3 (1.8-7.7) 09/01/21 11: Band Neutrophils # 0.0 K/mm3 09/01/21 11: Lymphocytes # (Manual) 0.5 K/mm3 (1.2-5.4) L 09/01/21 11:27 Abs React Lymphs (Man) 0.0 K/mm3 09/01/21 11: Monocytes # (Manual) 0.6 K/mm3 (0.0-0.8) 09/01/21 11: Eosinophils # (Manual) 0.0 K/mm3 (0.0-0.4) 09/01/21 11: Basophils # (Manual) 0.0 K/mm3 (0.0-0.1) 09/01/21 11: Metamyelocytes # 0.0 K/mm3 09/01/21 11: Myelocytes # 0.0 K/mm3 09/01/21 11: Promyelocytes # 0.0 K/mm3 09/01/21 11: Blast Cells # 0.0 K/mm3 09/01/21 11:27 WBC Morphology Not Reportable 09/01/21 11:27 Hypersegmented Neuts Not Reportable 09/01/21 11:27 Hyposegmented Neuts Not Reportable 09/01/21 11:27 Hypogranular Neuts Not Reportable 09/01/21 11:27 Smudge Cells Not Reportable 09/01/21 11:27 Toxic Granulation Not Reportable 09/01/21 11:27 Toxic Vacuolation Not Reportable 09/01/21 11:27 Dohle Bodies Not Reportable 09/01/21 11:27 Pelger-Huet Anomaly Not Reportable 09/01/21 11:27 Jeannine Rods Not Reportable 09/01/21 11:27 Platelet Estimate Consistent w auto 09/01/21 11:27 Clumped Platelets Not Reportable 09/01/21 11:27 Plt Clumps, EDTA Not Reportable 09/01/21 11:27 Large Platelets Few 09/01/21 11:27 Giant Platelets Not Reportable 09/01/21 11:27 Platelet Satelliting Not Reportable 09/01/21 11:27 Plt Morphology Comment Not Reportable 09/01/21 11:27 RBC Morphology Not Reportable 09/01/21 11:27 Dimorphic RBCs Not Reportable 09/01/21 11:27 Polychromasia Not Reportable 09/01/21 11:27 Hypochromasia 2+ 09/01/21 11:27 Poikilocytosis Not Reportable 09/01/21 11:27 Anisocytosis 1+ 09/01/21 11:27 Microcytosis Not Reportable 09/01/21 11:27 Macrocytosis Not Reportable 09/01/21 11:27 Spherocytes Not Reportable 09/01/21 11:27 Pappenheimer Bodies Not Reportable 09/01/21 11:27 Sickle Cells Not Reportable 09/01/21 11:27 Target Cells Not Reportable 09/01/21 11:27 Tear Drop Cells Not Reportable 09/01/21 11:27 Ovalocytes Not Reportable 09/01/21 11:27 Helmet Cells Not Reportable 09/01/21 11:27 [place] Bodies Not Reportable 09/01/21 11:27 [place] Rings Not Reportable 09/01/21 11:27 [place]ued[place] Cells Not Reportable 09/01/21 11:27 Bite Cells Not Reportable 09/01/21 11:27 Crenated Cell Not Reportable 09/01/21 11:27 Elliptocytes Not Reportable 09/01/21 11:27 Acanthocytes (Spur) Not Reportable 09/01/21 11:27 Rouleaux Not Reportable 09/01/21 11:27 Hemoglobin C Crystals Not Reportable 09/01/21 11:27 Schistocytes Not Reportable 09/01/21 11:27 Malaria parasites Not Reportable 09/01/21 11:27 Oliverio Bodies Not Reportable 09/01/21 11:27 Hem Pathologist Commnt No 09/01/21 11:27 Sodium 139 mmol/L (137-145) 09/01/21 11:27 Potassium 3.4 mmol/L (3.6-5.0) L 09/01/21 11:27 Chloride 102.3 mmol/L (98-107) 09/01/21 11:27 Carbon Dioxide 24 mmol/L (22-30) 09/01/21 11:27 Anion Gap 16 mmol/L 09/01/21 11:27 BUN 21 mg/dL (9-20) H 09/01/21 11:27 Creatinine 1.4 mg/dL (0.8-1.3) H 09/01/21 11:27 Estimated GFR 49 ml/min 09/01/21 11:27 BUN/Creatinine Ratio 15 % 09/01/21 11:27 Glucose 139 mg/dL (75-100) H 09/01/21 11:27 Hemoglobin A1c < 4.0 % (4-6) L 09/01/21 11:27 Calcium 8.2 mg/dL (8.4-10.2) L 09/01/21 11:27 Total Bilirubin 1.30 mg/dL (0.1-1.2) H 09/01/21 11:27 AST 46 units/L (5-40) H 09/01/21 11:27 ALT 17 units/L (7-56) 09/01/21 11:27 Alkaline Phosphatase 41 units/L (35-129) 09/01/21 11:27 Total Protein 6.2 g/dL (6.3-8.2) L 09/01/21 11:27 Albumin 3.2 g/dL (3.9-5) L 09/01/21 11:27 Albumin/Globulin Ratio 1.1 % 09/01/21 11:27 Triglycerides 97 mg/dL (2-149) 09/01/21 11:27 Cholesterol 110 mg/dL (50-199) 09/01/21 11:27 LDL Cholesterol Direct 58 mg/dL (50-130) 09/01/21 11:27 HDL Cholesterol 30 mg/dL (40-59) L 09/01/21 11:27 Cholesterol/HDL Ratio 3.66 % 09/01/21 11:27 TSH 2.720 mlU/mL (0.270-4.200) 09/01/21 11:27 Tejeda/IV: Voiding Method Toilet Active Medications - Current Medications Current Medications: Generic Name Dose Route Start Last Admin Trade Name Freq PRN Reason Stop Dose Admin Acetaminophen 650 mg 08/29/21 10:00 09/04/21 16:59 Acetaminophen 325 Mg Tab PO 650 mg Q4HR ZULMA Administration Docusate Sodium 100 mg 08/29/21 09:00 Docusate Sodium 100 Mg Cap PO PRN ZULMA Ferrous Sulfate 325 mg 08/29/21 14:00 09/04/21 13:09 Ferrous Sulfate 325 Mg Tab PO 325 mg TID ZULMA Administration Folic Acid 1 mg 08/29/21 10:00 09/04/21 09:36 Folic Acid 1 Mg Tab PO 1 mg DAILY ZULMA Administration Haloperidol 2 mg 09/02/21 10:00 09/04/21 09:36 Haloperidol 2 Mg Tab PO 2 mg BID ZULMA Administration Lorazepam 1 mg 08/28/21 13:10 09/04/21 13:09 Lorazepam 1 Mg Tab PO 1 mg Q6H PRN Administration Anxiety Oxycodone/Acetaminophen 1 tab 08/29/21 09:00 09/04/21 05:33 Oxycodone /Acetaminophen 5-325mg Tab PO 1 tab Q6H PRN Administration Pain, Moderate (4-6) Ziprasidone 20 mg 08/29/21 10:30 Ziprasidone Mesylate 20 Mg Vial IM Q4H PRN Agitation
[2021-09-05] MEDS: ACETAMINOPHEN 325 MG TAB PO SCH ×6 (04:49→21:55)
[2021-09-05] MEDS: oxyCODONE /ACETAMINOPHEN 5-325MG TAB PO PRN (09:36)
[2021-09-05] MEDS: HALOPERIDOL 2 MG TAB PO SCH ×2 (09:36→21:55)
[2021-09-05] MEDS: FERROUS SULFATE 325 MG TAB PO SCH ×3 (09:36→21:55)
[2021-09-05] MEDS: FOLIC ACID 1 MG TAB PO SCH (09:37)
--- NOTE | 2021-09-05 10:19 | Progress Note ---
Subjective Date of service: 09/05/21 Principal diagnosis: Dementia with behavioral disturbances Subjective Comment: The patient was seen today. He is confused. He is lying in bed staring straight ahead. I have to nudge him to get him to respond. He then looks at me and then turns his head back straight ahead. I nudge the patient and again and asks if he's okay and why isn't he talking. He politely grabs my hand and says good morning. He says "I just got back from a ." The patient will be placed with hospice upon discharge. 09/04:The patient was seen at breakfast today. He continues to endorse depression. He denies any current suicidal/homicidal ideation and denies hallucinations. No aggressive behavior reported. No changes made today. 09/03:The patient was seen this morning. He continues to endorse depression. He denies any current suicidal/homicidal ideation and denies hallucinations. No aggressive behavior reported. No changes made today. 09/02:The patient was seen this morning. He is alert and oriented to self. He reports doing well. He denies any current suicidal/homicidal ideation and denies hallucinations. No aggressive behavior reported. 09/01:The patient was seen this morning. The patient states " I'm just here." He endorses depression rating as 7-8/10. He denies any current suicidal/homicidal ideation and denies hallucinations. 08/31: The patient was seen this morning. The patient is resting quietly in bed. Per nurse, he had an uneventful night. 08/30: The patient was seen this morning. He is calm. He continues to be confused. Unable to assess SI/HI/ AVH due to current mentation. Start Haldol 2mg IM BID. REVIEW OF SYSTEMS Unable to obtain MENTAL STATUS EXAMINATION Unable to obtain Diagnoses: Delusional Disorder Treatment Plan Patient admitted for inpatient psychiatric evaluation, medication adjustment and close monitoring The patient's behavior, mood, sleep and appetite will be closely monitored. Patient enrolled in individual and group therapeutic sessions and encouraged to attend. Patient provided with a safe and structured environment. Patient's physical health needs will be addressed by the Hospitalist. Hospitalist Consulted Labs including CBC, CMP, Lipid profile and Hemoglobin A1C levels ordered for baseline reference Social Assessment will be completed and the Field Applications Specialist will work with patient and family to ensure a suitable and safe disposition Medication adjustment will be made as clinically indicated Continue Meds Usual Wellness [employer]/Preservation: - Start Trazodone 50 mg po QHS & 50 mg po QHS PRN between 10 PM & 2 AM for insomnia - Start Melatonin 5 mg po QHS to promote circadian rhythm The patient agreed on the treatment plan, understood the risk, benefit, alternative treatment, potential consequence of no treatment, and gave informed consent. Estimated days: 2 Post hospital care: primary care provider, psychiatric provider Case staffed with Dr. Herndon Medications and Allergies Allergies Allergy/AdvReac Type Severity Reaction Status Date / Time No Known Allergies Allergy Verified 08/28/21 22:01 Home Medications Medication Instructions Recorded Confirmed Last Taken Type ALPRAZolam [Xanax TAB] 2 mg PO TID 08/27/21 08/27/21 Unknown History Acetaminophen [Aphen] 650 mg PO Q4HR 08/27/21 08/27/21 Unknown History Docusate Sodium [Colace CAP] 100 mg PO PRN 08/27/21 08/27/21 Unknown History Ferrous Sulfate [Feosol] 325 mg PO TID 08/27/21 08/27/21 Unknown History Folic Acid 1 mg PO DAILY 08/27/21 08/27/21 Unknown History Oxycodone HCl/Acetaminophen 1 tab PO Q6HR PRN 08/27/21 08/27/21 Unknown History [Percocet 10/325 mg] Active Meds: Active Medications Acetaminophen (Acetaminophen 325 Mg Tab) 650 mg PO Q4HR [facility] Last Admin: 09/05/21 09:37 Dose: 650 mg Docusate Sodium (Docusate Sodium 100 Mg Cap) 100 mg PO PRN [facility] Ferrous Sulfate (Ferrous Sulfate 325 Mg Tab) 325 mg PO TID [facility] Last Admin: 09/05/21 09:36 Dose: 325 mg Folic Acid (Folic Acid 1 Mg Tab) 1 mg PO DAILY [facility] Last Admin: 09/05/21 09:37 Dose: 1 mg Haloperidol (Haloperidol 2 Mg Tab) 2 mg PO BID [facility] Last Admin: 09/05/21 09:36 Dose: 2 mg Lorazepam (Lorazepam 1 Mg Tab) 1 mg PO Q6H PRN PRN Reason: Anxiety Last Admin: 09/04/21 19:40 Dose: 1 mg Oxycodone/Acetaminophen (Oxycodone /Acetaminophen 5-325mg Tab) 1 tab PO Q6H PRN PRN Reason: Pain, Moderate (4-6) Last Admin: 09/05/21 09:36 Dose: 1 tab Ziprasidone (Ziprasidone Mesylate 20 Mg Vial) 20 mg IM Q4H PRN PRN Reason: Agitation Results - Results Labs/Vitals: Laboratory Last Values WBC 3.5 K/mm3 (4.5-11.0) L 09/01/21 11:27 RBC 3.33 M/mm3 (3.65-5.03) L 09/01/21 11:27 Hgb 8.1 gm/dl (11.8-15.2) L 09/01/21 11:27 Hct 27.2 % (35.5-45.6) L 09/01/21 11:27 MCV 82 fl (84-94) L 09/01/21 11:27 MCH 24 pg (28-32) L 09/01/21 11:27 MCHC 30 % (32-34) L 09/01/21 11:27 RDW 18.9 % (13.2-15.2) H 09/01/21 11:27 Plt Count 350 K/mm3 (140-440) 09/01/21 11:27 [place] % (Auto) [employer] 09/01/21 11:27 Add Manual Diff Complete 09/01/21 11:27 Total Counted 100 09/01/21 11:27 Seg Neuts % (Manual) 65.0 % (40.0-70.0) 09/01/21 11:27 Band Neutrophils % 1.0 % 09/01/21 11:27 Lymphocytes % (Manual) 15.0 % (13.4-35.0) 09/01/21 11:27 Reactive Lymphs % (Man) 1.0 % 09/01/21 11:27 Monocytes % (Manual) 17.0 % (0.0-7.3) H 09/01/21 11:27 Eosinophils % (Manual) 0 % (0.0-4.3) 09/01/21 11:27 Basophils % (Manual) 0 % (0.0-1.8) 09/01/21 11:27 Metamyelocytes % 1.0 % 09/01/21 11:27 Myelocytes % 0 % 09/01/21 11:27 Promyelocytes % 0 % 09/01/21 11:27 Blast Cells % 0 % 09/01/21 11:27 Nucleated RBC % Not Reportable 09/01/21 11:27 Seg Neutrophils # Man 2.3 K/mm3 (1.8-7.7) 09/01/21 11:27 Band Neutrophils # 0.0 K/mm3 09/01/21 11:27 Lymphocytes # (Manual) 0.5 K/mm3 (1.2-5.4) L 09/01/21 11:27 Abs React Lymphs (Man) 0.0 K/mm3 09/01/21 11:27 Monocytes # (Manual) 0.6 K/mm3 (0.0-0.8) 09/01/21 11: Eosinophils # (Manual) 0.0 K/mm3 (0.0-0.4) 09/01/21 11: Basophils # (Manual) 0.0 K/mm3 (0.0-0.1) 09/01/21 11: Metamyelocytes # 0.0 K/mm3 09/01/21 11: Myelocytes # 0.0 K/mm3 09/01/21 11:27 Promyelocytes # 0.0 K/mm3 09/01/21 11: Blast Cells # 0.0 K/mm3 09/01/21 11:27 WBC Morphology Not Reportable 09/01/21 11:27 Hypersegmented Neuts Not Reportable 09/01/21 11:27 Hyposegmented Neuts Not Reportable 09/01/21 11:27 Hypogranular Neuts Not Reportable 09/01/21 11:27 Smudge Cells Not Reportable 09/01/21 11:27 Toxic Granulation Not Reportable 09/01/21 11:27 Toxic Vacuolation Not Reportable 09/01/21 11:27 Dohle Bodies Not Reportable 09/01/21 11:27 Pelger-Huet Anomaly Not Reportable 09/01/21 11:27 Jeannine Rods Not Reportable 09/01/21 11:27 Platelet Estimate Consistent w auto 09/01/21 11:27 Clumped Platelets Not Reportable 09/01/21 11:27 Plt Clumps, EDTA Not Reportable 09/01/21 11:27 Large Platelets Few 09/01/21 11:27 Giant Platelets Not Reportable 09/01/21 11:27 Platelet Satelliting Not Reportable 09/01/21 11:27 Plt Morphology Comment Not Reportable 09/01/21 11:27 RBC Morphology Not Reportable 09/01/21 11:27 Dimorphic RBCs Not Reportable 09/01/21 11:27 Polychromasia Not Reportable 09/01/21 11:27 Hypochromasia 2+ 09/01/21 11:27 Poikilocytosis Not Reportable 09/01/21 11:27 Anisocytosis 1+ 09/01/21 11:27 Microcytosis Not Reportable 09/01/21 11:27 Macrocytosis Not Reportable 09/01/21 11:27 Spherocytes Not Reportable 09/01/21 11:27 Pappenheimer Bodies Not Reportable 09/01/21 11:27 Sickle Cells Not Reportable 09/01/21 11:27 Target Cells Not Reportable 09/01/21 11:27 Tear Drop Cells Not Reportable 09/01/21 11:27 Ovalocytes Not Reportable 09/01/21 11:27 Helmet Cells Not Reportable 09/01/21 11:27 Morley-[place] Bodies Not Reportable 09/01/21 11:27 [place] Rings Not Reportable 09/01/21 11:27 [place] Cells Not Reportable 09/01/21 11:27 Bite Cells Not Reportable 09/01/21 11:27 Crenated Cell Not Reportable 09/01/21 11:27 Elliptocytes Not Reportable 09/01/21 11:27 Acanthocytes (Spur) Not Reportable 09/01/21 11:27 Rouleaux Not Reportable 09/01/21 11:27 Hemoglobin C Crystals Not Reportable 09/01/21 11:27 Schistocytes Not Reportable 09/01/21 11:27 Malaria parasites Not Reportable 09/01/21 11:27 Oliverio Bodies Not Reportable 09/01/21 11:27 Hem Pathologist Commnt No 09/01/21 11:27 Sodium 139 mmol/L (137-145) 09/01/21 11:27 Potassium 3.4 mmol/L (3.6-5.0) L 09/01/21 11:27 Chloride 102.3 mmol/L (98-107) 09/01/21 11:27 Carbon Dioxide 24 mmol/L (22-30) 09/01/21 11:27 Anion Gap 16 mmol/L 09/01/21 11:27 BUN 21 mg/dL (9-20) H 09/01/21 11:27 Creatinine 1.4 mg/dL (0.8-1.3) H 09/01/21 11:27 Estimated GFR 49 ml/min 09/01/21 11:27 BUN/Creatinine Ratio 15 % 09/01/21 11:27 Glucose 139 mg/dL (75-100) H 09/01/21 11:27 Hemoglobin A1c < 4.0 % (4-6) L 09/01/21 11:27 Calcium 8.2 mg/dL (8.4-10.2) L 09/01/21 11:27 Total Bilirubin 1.30 mg/dL (0.1-1.2) H 09/01/21 11:27 AST 46 units/L (5-40) H 09/01/21 11:27 ALT 17 units/L (7-56) 09/01/21 11:27 Alkaline Phosphatase 41 units/L (35-129) 09/01/21 11:27 Total Protein 6.2 g/dL (6.3-8.2) L 09/01/21 11:27 Albumin 3.2 g/dL (3.9-5) L 09/01/21 11:27 Albumin/Globulin Ratio 1.1 % 09/01/21 11:27 Triglycerides 97 mg/dL (2-149) 09/01/21 11:27 Cholesterol 110 mg/dL (50-199) 09/01/21 11:27 LDL Cholesterol Direct 58 mg/dL (50-130) 09/01/21 11:27 HDL Cholesterol 30 mg/dL (40-59) L 09/01/21 11:27 Cholesterol/HDL Ratio 3.66 % 09/01/21 11:27 TSH 2.720 mlU/mL (0.270-4.200) 09/01/21 11:27 Last Vital Signs Temp 98.7 F 09/05/21 09:02 Pulse 82 09/05/21 09:02 Resp 18 09/05/21 09:36 BP 148/73 09/05/21 09:02 Pulse Ox 98 09/05/21 09:02
--- NOTE | 2021-09-05 21:51 | Progress Note ---
Assessment and Plan - Patient Problems (1) Vascular dementia with behavioral disturbance Current Visit: Yes Status: Acute Plan to address problem: Verbal prompting, verbal redirection, benzodiazepine therapy as clinically indicated. (2) Cerebral atherosclerosis Current Visit: Yes Status: Acute Plan to address problem: Risk factor reduction, antiplatelet therapy as clinically indicated, supportive care. (3) Encephalopathy Current Visit: Yes Status: Acute Plan to address problem: Supportive care, verbal redirection. Chronic in nature. (4) Generalized anxiety disorder Current Visit: Yes Status: Acute Plan to address problem: Benzodiazepine therapy as clinically indicated, continue medical management. (5) Malnutrition Current Visit: Yes Status: Acute Qualifiers: Protein-calorie malnutrition severity: moderate Plan to address problem: Dietary supplementation, increase protein intake. (6) Advance care planning Current Visit: Yes Status: Acute Plan to address problem: Disease education data, care plan discussed, diagnoses discussed, prognosis discussed. Patient is DNR as per request. Patient currently admitted to hospice care. +30 minutes. History Interval history: 76 YO Male with Vascular Dementia with Behavioral Disturbance, Cerebral Atherosclerosis, Encephalopathy, SANTA who is currently on Hospice Care. Pt is AND/DNR as per family request(). Pt is admitted to [facility] for psychiatric stabilization. Consult placed by Dr. Simmons for medical management. Patient seen and evaluated in the recreation room. Patient agitation/confusion improved. Patient remains comfortable. Patient exhibits tangential thinking with diminished cognition. Hospitalist Physical - Constitutional Vitals: Temp Pulse Resp BP Pulse Ox 98.4 F 85 20 121/70 99 09/05/21 20:50 09/05/21 20:50 09/05/21 20:50 09/05/21 20:50 09/05/21 20:50 General appearance: Present: no acute distress, well-nourished - EENT Eyes: Present: PERRL ENT: hearing decreased - Neck Neck: Present: supple - Respiratory Respiratory effort: normal Respiratory: bilateral: CTA - Cardiovascular Rhythm: regular Heart Sounds: Present: S1 & S2 - Extremities Extremities: no ischemia Peripheral Pulses: within normal limits - Abdominal General gastrointestinal: soft, non-tender, non-distended - Integumentary Integumentary: Present: clear, dry - Psychiatric Psychiatric: cooperative - Neurologic Neurologic: CNII-XII intact Results - Labs CBC & Chem 7: 09/01/21 11:27 09/01/21 11:27 Labs: Laboratory Last Values WBC 3.5 K/mm3 (4.5-11.0) L 09/01/21 11: RBC 3.33 M/mm3 (3.65-5.03) L 09/01/21 11:27 Hgb 8.1 gm/dl (11.8-15.2) L 09/01/21 11: Hct 27.2 % (35.5-45.6) L 09/01/21 11: MCV 82 fl (84-94) L 09/01/21 11: MCH 24 pg (28-32) L 09/01/21 11: MCHC 30 % (32-34) L 09/01/21 11: RDW 18.9 % (13.2-15.2) H 09/01/21 11:27 Plt Count 350 K/mm3 (140-440) 09/01/21 11:27 [place] % (Auto) Menagerie Caretaker 09/01/21 11:27 Add Manual Diff Complete 09/01/21 11:27 Total Counted 100 09/01/21 11:27 Seg Neuts % (Manual) 65.0 % (40.0-70.0) 09/01/21 11: Band Neutrophils % 1.0 % 09/01/21 11:27 Lymphocytes % (Manual) 15.0 % (13.4-35.0) 09/01/21 11:27 Reactive Lymphs % (Man) 1.0 % 09/01/21 11: Monocytes % (Manual) 17.0 % (0.0-7.3) H 09/01/21 11:27 Eosinophils % (Manual) 0 % (0.0-4.3) 09/01/21 11:27 Basophils % (Manual) 0 % (0.0-1.8) 09/01/21 11:27 Metamyelocytes % 1.0 % 09/01/21 11:27 Myelocytes % 0 % 09/01/21 11:27 Promyelocytes % 0 % 09/01/21 11:27 Blast Cells % 0 % 09/01/21 11:27 Nucleated RBC % Not Reportable 09/01/21 11:27 Seg Neutrophils # Man 2.3 K/mm3 (1.8-7.7) 09/01/21 11:27 Band Neutrophils # 0.0 K/mm3 09/01/21 11:27 Lymphocytes # (Manual) 0.5 K/mm3 (1.2-5.4) L 09/01/21 11:27 Abs React Lymphs (Man) 0.0 K/mm3 09/01/21 11:27 Monocytes # (Manual) 0.6 K/mm3 (0.0-0.8) 09/01/21 11:27 Eosinophils # (Manual) 0.0 K/mm3 (0.0-0.4) 09/01/21 11:27 Basophils # (Manual) 0.0 K/mm3 (0.0-0.1) 09/01/21 11:27 Metamyelocytes # 0.0 K/mm3 09/01/21 11: Myelocytes # 0.0 K/mm3 09/01/21 11:27 Promyelocytes # 0.0 K/mm3 09/01/21 11: Blast Cells # 0.0 K/mm3 09/01/21 11:27 WBC Morphology Not Reportable 09/01/21 11:27 Hypersegmented Neuts Not Reportable 09/01/21 11:27 Hyposegmented Neuts Not Reportable 09/01/21 11:27 Hypogranular Neuts Not Reportable 09/01/21 11:27 Smudge Cells Not Reportable 09/01/21 11:27 Toxic Granulation Not Reportable 09/01/21 11:27 Toxic Vacuolation Not Reportable 09/01/21 11:27 Dohle Bodies Not Reportable 09/01/21 11:27 Pelger-Huet Anomaly Not Reportable 09/01/21 11:27 Jeannine Rods Not Reportable 09/01/21 11:27 Platelet Estimate Consistent w auto 09/01/21 11:27 Clumped Platelets Not Reportable 09/01/21 11:27 Plt Clumps, EDTA Not Reportable 09/01/21 11:27 Large Platelets Few 09/01/21 11:27 Giant Platelets Not Reportable 09/01/21 11:27 Platelet Satelliting Not Reportable 09/01/21 11:27 Plt Morphology Comment Not Reportable 09/01/21 11:27 RBC Morphology Not Reportable 09/01/21 11:27 Dimorphic RBCs Not Reportable 09/01/21 11:27 Polychromasia Not Reportable 09/01/21 11:27 Hypochromasia 2+ 09/01/21 11:27 Poikilocytosis Not Reportable 09/01/21 11:27 Anisocytosis 1+ 09/01/21 11:27 Microcytosis Not Reportable 09/01/21 11:27 Macrocytosis Not Reportable 09/01/21 11:27 Spherocytes Not Reportable 09/01/21 11:27 Pappenheimer Bodies Not Reportable 09/01/21 11:27 Sickle Cells Not Reportable 09/01/21 11:27 Target Cells Not Reportable 09/01/21 11:27 Tear Drop Cells Not Reportable 09/01/21 11:27 Ovalocytes Not Reportable 09/01/21 11:27 Helmet Cells Not Reportable 09/01/21 11:27 [place] Bodies Not Reportable 09/01/21 11:27 [place] Rings Not Reportable 09/01/21 11:27 [place] Cells Not Reportable 09/01/21 11:27 Bite Cells Not Reportable 09/01/21 11:27 Crenated Cell Not Reportable 09/01/21 11:27 Elliptocytes Not Reportable 09/01/21 11:27 Acanthocytes (Spur) Not Reportable 09/01/21 11:27 Rouleaux Not Reportable 09/01/21 11:27 Hemoglobin C Crystals Not Reportable 09/01/21 11:27 Schistocytes Not Reportable 09/01/21 11:27 Malaria parasites Not Reportable 09/01/21 11:27 Oliverio Bodies Not Reportable 09/01/21 11:27 Hem Pathologist Commnt No 09/01/21 11:27 Sodium 139 mmol/L (137-145) 09/01/21 11:27 Potassium 3.4 mmol/L (3.6-5.0) L 09/01/21 11:27 Chloride 102.3 mmol/L (98-107) 09/01/21 11:27 Carbon Dioxide 24 mmol/L (22-30) 09/01/21 11:27 Anion Gap 16 mmol/L 09/01/21 11:27 BUN 21 mg/dL (9-20) H 09/01/21 11:27 Creatinine 1.4 mg/dL (0.8-1.3) H 09/01/21 11:27 Estimated GFR 49 ml/min 09/01/21 11:27 BUN/Creatinine Ratio 15 % 09/01/21 11:27 Glucose 139 mg/dL (75-100) H 09/01/21 11:27 Hemoglobin A1c < 4.0 % (4-6) L 09/01/21 11:27 Calcium 8.2 mg/dL (8.4-10.2) L 09/01/21 11:27 Total Bilirubin 1.30 mg/dL (0.1-1.2) H 09/01/21 11:27 AST 46 units/L (5-40) H 09/01/21 11:27 ALT 17 units/L (7-56) 09/01/21 11:27 Alkaline Phosphatase 41 units/L (35-129) 09/01/21 11:27 Total Protein 6.2 g/dL (6.3-8.2) L 09/01/21 11:27 Albumin 3.2 g/dL (3.9-5) L 09/01/21 11:27 Albumin/Globulin Ratio 1.1 % 09/01/21 11:27 Triglycerides 97 mg/dL (2-149) 09/01/21 11:27 Cholesterol 110 mg/dL (50-199) 09/01/21 11:27 LDL Cholesterol Direct 58 mg/dL (50-130) 09/01/21 11:27 HDL Cholesterol 30 mg/dL (40-59) L 09/01/21 11:27 Cholesterol/HDL Ratio 3.66 % 09/01/21 11:27 TSH 2.720 mlU/mL (0.270-4.200) 09/01/21 11:27 [place]/IV: Voiding Method Toilet Active Medications - Current Medications Current Medications: Generic Name Dose Route Start Last Admin Trade Name Freq PRN Reason Stop Dose Admin Acetaminophen 650 mg 08/29/21 10:00 09/05/21 17:30 Acetaminophen 325 Mg Tab PO 650 mg Q4HR [facility] Administration Docusate Sodium 100 mg 08/29/21 09:00 Docusate Sodium 100 Mg Cap PO PRN ZULMA Ferrous Sulfate 325 mg 08/29/21 14:00 09/05/21 14:52 Ferrous Sulfate 325 Mg Tab PO Not Given TID [facility] Folic Acid 1 mg 08/29/21 10:00 09/05/21 09:37 Folic Acid 1 Mg Tab PO 1 mg DAILY ZULMA Administration Haloperidol 2 mg 09/02/21 10:00 09/05/21 09:36 Haloperidol 2 Mg Tab PO 2 mg BID ZULMA Administration Lorazepam 1 mg 08/28/21 13:10 09/04/21 19:40 Lorazepam 1 Mg Tab PO 1 mg Q6H PRN Administration Anxiety Oxycodone/Acetaminophen 1 tab 08/29/21 09:00 09/05/21 09:36 Oxycodone /Acetaminophen 5-325mg Tab PO 1 tab Q6H PRN Administration Pain, Moderate (4-6) Ziprasidone 20 mg 08/29/21 10:30 Ziprasidone Mesylate 20 Mg Vial IM Q4H PRN Agitation Nutrition/Malnutrition Assess - Dietary Evaluation Nutrition/Malnutrition Findings: Nutrition Notes Start: 09/04/21 18:25 Freq: Status: Active Protocol: Document 09/04/21 18:25 REJI (Rec: 09/04/21 18:35 REJI [id number]) Nutrition Notes Need for Assessment generated from: LOS Initial or Follow up Assessment Current Diagnosis Malnutrition Other Pertinent Diagnosis Vascular Dementia w/Behavioral Disturbance, Encephalopathy, Anxiety... Current Diet Pureed Diet (since B 08/31). Labs/Tests 09/04: K 3.4, BUN 21, Crea 1.4 , Glu 139, Ca 8.2, HbA1c <4.0. Pertinent Medications 09/04: Folic Acid, others nutritionally unremarkable. 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 Weight Status Appropriate Subjective/Other Information RD consult for LOS assessment. Pt's PO intake of meals has been Good (75-100%), according to ADL notes. Pt is on Room Air, O2 saturation @ 98%, according to Vital Signs notes. Pt will return to his Hospice Care Facility after discharge, according to Progress notes.. Pt is on DNR/DNI status as per family request, according to Progress notes. Percent of energy/protein needs met: Prescribed Pureed Diet provides for energy/protein needs (1,804 Kcal/77 g) during LOS. Burn Absent Trauma Absent GI Symptoms None Food Allergy No Skin Integrity/Comment Unspecified bruises. Current % PO Good (75-100%) Minimum of two criteria No #1 Nutrition Diagnosis No nutrition diagnosis at this time Is patient on ventilator? No Is Patient Ambulatory and/or Out of Bed Yes REE-([facility]-ambulatory/OOB) [ 1805.453 [id number]] Calculation Used for Recommendations [facility] Additional Notes Protein: 1-1.2 g/Kg ABW; 81-97 g/day. Fluids: 1 ml/Kcal, or as per MD. Nutrition Intervention Change Diet Order: Continue Pureed Diet. Revisit per MD consult or patient Sign Off request: Additional Comments Continue monitoring food tolerance, %PO intake of meals , and BM.
[2021-09-06] MEDS: ACETAMINOPHEN 325 MG TAB PO SCH ×6 (02:10→21:41)
--- NOTE | 2021-09-06 08:40 | Progress Note ---
Subjective Date of service: 09/06/21 Principal diagnosis: Dementia with behavioral disturbances Subjective Comment: The patient was seen today. He is confused. He is lying in bed. He is delusional. He says "they gone kill me." He says "the window is falling on me. I'm just gone stay out of the way." 09/05 The patient was seen today. He is confused. He is lying in bed staring straight ahead. I have to nudge him to get him to respond. He then looks at me and then turns his head back straight ahead. I nudge the patient and again and asks if he's okay and why isn't he talking. He politely grabs my hand and says good morning. He says "I just got back from a ." The patient will be placed with hospice upon discharge. 09/04:The patient was seen at breakfast today. He continues to endorse depression. He denies any current suicidal/homicidal ideation and denies hallucinations. No aggressive behavior reported. No changes made today. 09/03:The patient was seen this morning. He continues to endorse depression. He denies any current suicidal/homicidal ideation and denies hallucinations. No aggressive behavior reported. No changes made today. 09/02:The patient was seen this morning. He is alert and oriented to self. He reports doing well. He denies any current suicidal/homicidal ideation and denies hallucinations. No aggressive behavior reported. 09/01:The patient was seen this morning. The patient states " I'm just here." He endorses depression rating as 7-8/10. He denies any current suicidal/homicidal ideation and denies hallucinations. 08/31: The patient was seen this morning. The patient is resting quietly in bed. Per nurse, he had an uneventful night. 08/30: The patient was seen this morning. He is calm. He continues to be confused. Unable to assess SI/HI/ AVH due to current mentation. Start Haldol 2mg IM BID. REVIEW OF SYSTEMS Unable to obtain MENTAL STATUS EXAMINATION Unable to obtain Diagnoses: Delusional Disorder Treatment Plan Patient admitted for inpatient psychiatric evaluation, medication adjustment and close monitoring The patient's behavior, mood, sleep and appetite will be closely monitored. Patient enrolled in individual and group therapeutic sessions and encouraged to attend. Patient provided with a safe and structured environment. Patient's physical health needs will be addressed by the Hospitalist. Hospitalist Consulted Labs including CBC, CMP, Lipid profile and Hemoglobin A1C levels ordered for baseline reference Social Assessment will be completed and the Polarity Tester will work with patient and family to ensure a suitable and safe disposition Medication adjustment will be made as clinically indicated Continue Haldol 2mg po BID Usual Wellness Adventist/Preservation: - Start Trazodone 50 mg po QHS & 50 mg po QHS PRN between 10 PM & 2 AM for insomnia - Start Melatonin 5 mg po QHS to promote circadian rhythm The patient agreed on the treatment plan, understood the risk, benefit, alternative treatment, potential consequence of no treatment, and gave informed consent. Estimated days: 2 Post hospital care: primary care provider, psychiatric provider Case staffed with Dr. Herndon Medications and Allergies Allergies Allergy/AdvReac Type Severity Reaction Status Date / Time No Known Allergies Allergy Verified 08/28/21 22:01 Home Medications Medication Instructions Recorded Confirmed Last Taken Type ALPRAZolam [Xanax TAB] 2 mg PO TID 08/27/21 08/27/21 Unknown History Acetaminophen [Aphen] 650 mg PO Q4HR 08/27/21 08/27/21 Unknown History Docusate Sodium [Colace CAP] 100 mg PO PRN 08/27/21 08/27/21 Unknown History Ferrous Sulfate [Feosol] 325 mg PO TID 08/27/21 08/27/21 Unknown History Folic Acid 1 mg PO DAILY 08/27/21 08/27/21 Unknown History Oxycodone HCl/Acetaminophen 1 tab PO Q6HR PRN 08/27/21 08/27/21 Unknown History [Percocet 10/325 mg] Active Meds: Active Medications Acetaminophen (Acetaminophen 325 Mg Tab) 650 mg PO Q4HR [facility] Last Admin: 09/06/21 05:52 Dose: 650 mg Docusate Sodium (Docusate Sodium 100 Mg Cap) 100 mg PO PRN [facility] Ferrous Sulfate (Ferrous Sulfate 325 Mg Tab) 325 mg PO TID [facility] Last Admin: 09/05/21 21:55 Dose: 325 mg Folic Acid (Folic Acid 1 Mg Tab) 1 mg PO DAILY [facility] Last Admin: 09/05/21 09:37 Dose: 1 mg Haloperidol (Haloperidol 2 Mg Tab) 2 mg PO BID [facility] Last Admin: 09/05/21 21:55 Dose: 2 mg Lorazepam (Lorazepam 1 Mg Tab) 1 mg PO Q6H PRN PRN Reason: Anxiety Last Admin: 09/04/21 19:40 Dose: 1 mg Oxycodone/Acetaminophen (Oxycodone /Acetaminophen 5-325mg Tab) 1 tab PO Q6H PRN PRN Reason: Pain, Moderate (4-6) Last Admin: 09/05/21 09:36 Dose: 1 tab Ziprasidone (Ziprasidone Mesylate 20 Mg Vial) 20 mg IM Q4H PRN PRN Reason: Agitation Results - Results Labs/Vitals: Laboratory Last Values WBC 3.5 K/mm3 (4.5-11.0) L 09/01/21 11:27 RBC 3.33 M/mm3 (3.65-5.03) L 09/01/21 11:27 Hgb 8.1 gm/dl (11.8-15.2) L 09/01/21 11:27 Hct 27.2 % (35.5-45.6) L 09/01/21 11:27 MCV 82 fl (84-94) L 09/01/21 11:27 MCH 24 pg (28-32) L 09/01/21 11:27 MCHC 30 % (32-34) L 09/01/21 11:27 RDW 18.9 % (13.2-15.2) H 09/01/21 11:27 Plt Count 350 K/mm3 (140-440) 09/01/21 11:27 [place] % (Auto) Securities Consultant 09/01/21 11:27 Add Manual Diff Complete 09/01/21 11:27 Total Counted 100 09/01/21 11:27 Seg Neuts % (Manual) 65.0 % (40.0-70.0) 09/01/21 11:27 Band Neutrophils % 1.0 % 09/01/21 11:27 Lymphocytes % (Manual) 15.0 % (13.4-35.0) 09/01/21 11:27 Reactive Lymphs % (Man) 1.0 % 09/01/21 11:27 Monocytes % (Manual) 17.0 % (0.0-7.3) H 09/01/21 11:27 Eosinophils % (Manual) 0 % (0.0-4.3) 09/01/21 11:27 Basophils % (Manual) 0 % (0.0-1.8) 09/01/21 11: Metamyelocytes % 1.0 % 09/01/21 11: Myelocytes % 0 % 09/01/21 11:27 Promyelocytes % 0 % 09/01/21 11: Blast Cells % 0 % 09/01/21 11: Nucleated RBC % Not Reportable 09/01/21 11:27 Seg Neutrophils # Man 2.3 K/mm3 (1.8-7.7) 09/01/21 11: Band Neutrophils # 0.0 K/mm3 09/01/21 11: Lymphocytes # (Manual) 0.5 K/mm3 (1.2-5.4) L 09/01/21 11: Abs React Lymphs (Man) 0.0 K/mm3 09/01/21 11: Monocytes # (Manual) 0.6 K/mm3 (0.0-0.8) 09/01/21 11: Eosinophils # (Manual) 0.0 K/mm3 (0.0-0.4) 09/01/21 11: Basophils # (Manual) 0.0 K/mm3 (0.0-0.1) 09/01/21 11: Metamyelocytes # 0.0 K/mm3 09/01/21 11: Myelocytes # 0.0 K/mm3 09/01/21 11: Promyelocytes # 0.0 K/mm3 09/01/21 11: Blast Cells # 0.0 K/mm3 09/01/21 11:27 WBC Morphology Not Reportable 09/01/21 11:27 Hypersegmented Neuts Not Reportable 09/01/21 11:27 Hyposegmented Neuts Not Reportable 09/01/21 11:27 Hypogranular Neuts Not Reportable 09/01/21 11:27 Smudge Cells Not Reportable 09/01/21 11:27 Toxic Granulation Not Reportable 09/01/21 11:27 Toxic Vacuolation Not Reportable 09/01/21 11:27 Dohle Bodies Not Reportable 09/01/21 11:27 Pelger-Huet Anomaly Not Reportable 09/01/21 11:27 Jeannine Rods Not Reportable 09/01/21 11:27 Platelet Estimate Consistent w auto 09/01/21 11:27 Clumped Platelets Not Reportable 09/01/21 11:27 Plt Clumps, EDTA Not Reportable 09/01/21 11:27 Large Platelets Few 09/01/21 11:27 Giant Platelets Not Reportable 09/01/21 11:27 Platelet Satelliting Not Reportable 09/01/21 11:27 Plt Morphology Comment Not Reportable 09/01/21 11:27 RBC Morphology Not Reportable 09/01/21 11:27 Dimorphic RBCs Not Reportable 09/01/21 11:27 Polychromasia Not Reportable 09/01/21 11:27 Hypochromasia 2+ 09/01/21 11:27 Poikilocytosis Not Reportable 09/01/21 11:27 Anisocytosis 1+ 09/01/21 11:27 Microcytosis Not Reportable 09/01/21 11:27 Macrocytosis Not Reportable 09/01/21 11:27 Spherocytes Not Reportable 09/01/21 11:27 Pappenheimer Bodies Not Reportable 09/01/21 11:27 Sickle Cells Not Reportable 09/01/21 11:27 Target Cells Not Reportable 09/01/21 11:27 Tear Drop Cells Not Reportable 09/01/21 11:27 Ovalocytes Not Reportable 09/01/21 11:27 Helmet Cells Not Reportable 09/01/21 11:27 Morley-Hodgkins Bodies Not Reportable 09/01/21 11:27 [place] Rings Not Reportable 09/01/21 11:27 [place] Cells Not Reportable 09/01/21 11:27 Bite Cells Not Reportable 09/01/21 11:27 Crenated Cell Not Reportable 09/01/21 11:27 Elliptocytes Not Reportable 09/01/21 11:27 Acanthocytes (Spur) Not Reportable 09/01/21 11:27 Rouleaux Not Reportable 09/01/21 11:27 Hemoglobin C Crystals Not Reportable 09/01/21 11:27 Schistocytes Not Reportable 09/01/21 11:27 Malaria parasites Not Reportable 09/01/21 11:27 Oliverio Bodies Not Reportable 09/01/21 11:27 Hem Pathologist Commnt No 09/01/21 11:27 Sodium 139 mmol/L (137-145) 09/01/21 11:27 Potassium 3.4 mmol/L (3.6-5.0) L 09/01/21 11:27 Chloride 102.3 mmol/L (98-107) 09/01/21 11:27 Carbon Dioxide 24 mmol/L (22-30) 09/01/21 11:27 Anion Gap 16 mmol/L 09/01/21 11:27 BUN 21 mg/dL (9-20) H 09/01/21 11:27 Creatinine 1.4 mg/dL (0.8-1.3) H 09/01/21 11:27 Estimated GFR 49 ml/min 09/01/21 11:27 BUN/Creatinine Ratio 15 % 09/01/21 11:27 Glucose 139 mg/dL (75-100) H 09/01/21 11:27 Hemoglobin A1c < 4.0 % (4-6) L 09/01/21 11:27 Calcium 8.2 mg/dL (8.4-10.2) L 09/01/21 11:27 Total Bilirubin 1.30 mg/dL (0.1-1.2) H 09/01/21 11:27 AST 46 units/L (5-40) H 09/01/21 11:27 ALT 17 units/L (7-56) 09/01/21 11:27 Alkaline Phosphatase 41 units/L (35-129) 09/01/21 11:27 Total Protein 6.2 g/dL (6.3-8.2) L 09/01/21 11:27 Albumin 3.2 g/dL (3.9-5) L 09/01/21 11:27 Albumin/Globulin Ratio 1.1 % 09/01/21 11:27 Triglycerides 97 mg/dL (2-149) 09/01/21 11:27 Cholesterol 110 mg/dL (50-199) 09/01/21 11:27 LDL Cholesterol Direct 58 mg/dL (50-130) 09/01/21 11:27 HDL Cholesterol 30 mg/dL (40-59) L 09/01/21 11:27 Cholesterol/HDL Ratio 3.66 % 09/01/21 11:27 TSH 2.720 mlU/mL (0.270-4.200) 09/01/21 11:27 Last Vital Signs Temp 98.4 F 09/05/21 20:50 Pulse 85 09/05/21 20:50 Resp 20 09/05/21 21:55 BP 121/70 09/05/21 20:50 Pulse Ox 99 09/05/21 20:50
[2021-09-06] MEDS: FERROUS SULFATE 325 MG TAB PO SCH ×3 (08:56→20:22)
[2021-09-06] MEDS: FOLIC ACID 1 MG TAB PO SCH (10:12)
[2021-09-06] MEDS: HALOPERIDOL 2 MG TAB PO SCH ×2 (10:12→21:41)
[2021-09-06] MEDS: oxyCODONE /ACETAMINOPHEN 5-325MG TAB PO PRN (13:31)
[2021-09-07] MEDS: ACETAMINOPHEN 325 MG TAB PO SCH ×6 (02:32→21:34)
[2021-09-07] MEDS: FERROUS SULFATE 325 MG TAB PO SCH ×3 (08:12→20:55)
[2021-09-07] MEDS: FOLIC ACID 1 MG TAB PO SCH (09:13)
[2021-09-07] MEDS: HALOPERIDOL 2 MG TAB PO SCH ×2 (09:13→21:34)
--- NOTE | 2021-09-07 10:46 | Progress Note ---
Subjective Date of service: 09/07/21 Principal diagnosis: Dementia with behavioral disturbances Subjective Comment: The patient was seen today. He is confused, but pleasant. He is talking about "some white stuff that's on the floor." 09/06 The patient was seen today. He is confused. He is lying in bed. He is delusional. He says "they gone kill me." He says "the window is falling on me. I'm just gone stay out of the way." 09/05 The patient was seen today. He is confused. He is lying in bed staring straight ahead. I have to nudge him to get him to respond. He then looks at me and then turns his head back straight ahead. I nudge the patient and again and asks if he's okay and why isn't he talking. He politely grabs my hand and says good morning. He says "I just got back from a ." The patient will be placed with hospice upon discharge. 09/04:The patient was seen at breakfast today. He continues to endorse depression. He denies any current suicidal/homicidal ideation and denies hallucinations. No aggressive behavior reported. No changes made today. 09/03:The patient was seen this morning. He continues to endorse depression. He denies any current suicidal/homicidal ideation and denies hallucinations. No aggressive behavior reported. No changes made today. 09/02:The patient was seen this morning. He is alert and oriented to self. He reports doing well. He denies any current suicidal/homicidal ideation and denies hallucinations. No aggressive behavior reported. 09/01:The patient was seen this morning. The patient states " I'm just here." He endorses depression rating as 7-8/10. He denies any current suicidal/homicidal ideation and denies hallucinations. 08/31: The patient was seen this morning. The patient is resting quietly in bed. Per nurse, he had an uneventful night. 08/30: The patient was seen this morning. He is calm. He continues to be confus ed. Unable to assess SI/HI/ AVH due to current mentation. Start Haldol 2mg IM BID. REVIEW OF SYSTEMS Unable to obtain MENTAL STATUS EXAMINATION Unable to obtain Diagnoses: Delusional Disorder Treatment Plan Patient admitted for inpatient psychiatric evaluation, medication adjustment and close monitoring The patient's behavior, mood, sleep and appetite will be closely monitored. Patient enrolled in individual and group therapeutic sessions and encouraged to attend. Patient provided with a safe and structured environment. Patient's physical health needs will be addressed by the Hospitalist. Hospitalist Consulted Labs including CBC, CMP, Lipid profile and Hemoglobin A1C levels ordered for baseline reference Social Assessment will be completed and the Casing Cleaner will work with patient and family to ensure a suitable and safe disposition Medication adjustment will be made as clinically indicated Continue Haldol 2mg po BID Usual Wellness Voodoo/Preservation: - Start Trazodone 50 mg po QHS & 50 mg po QHS PRN between 10 PM & 2 AM for insomnia - Start Melatonin 5 mg po QHS to promote circadian rhythm The patient agreed on the treatment plan, understood the risk, benefit, alternative treatment, potential consequence of no treatment, and gave informed consent. Estimated days: 2 Post hospital care: primary care provider, psychiatric provider Case staffed with Dr. Herndon Medications and Allergies Allergies Allergy/AdvReac Type Severity Reaction Status Date / Time No Known Allergies Allergy Verified 08/28/21 22:01 Home Medications Medication Instructions Recorded Confirmed Last Taken Type ALPRAZolam [Xanax TAB] 2 mg PO TID 08/27/21 08/27/21 Unknown History Acetaminophen [Aphen] 650 mg PO Q4HR 08/27/21 08/27/21 Unknown History Docusate Sodium [Colace CAP] 100 mg PO PRN 08/27/21 08/27/21 Unknown History Ferrous Sulfate [Feosol] 325 mg PO TID 08/27/21 08/27/21 Unknown History Folic Acid 1 mg PO DAILY 08/27/21 08/27/21 Unknown History Oxycodone HCl/Acetaminophen 1 tab PO Q6HR PRN 08/27/21 08/27/21 Unknown History [Percocet 10/325 mg] Active Meds: Active Medications Acetaminophen (Acetaminophen 325 Mg Tab) 650 mg PO Q4HR [facility] Last Admin: 09/07/21 09:12 Dose: 650 mg Docusate Sodium (Docusate Sodium 100 Mg Cap) 100 mg PO PRN [facility] Ferrous Sulfate (Ferrous Sulfate 325 Mg Tab) 325 mg PO TID [facility] Last Admin: 09/07/21 08:12 Dose: 325 mg Folic Acid (Folic Acid 1 Mg Tab) 1 mg PO DAILY [facility] Last Admin: 09/07/21 09:13 Dose: 1 mg Haloperidol (Haloperidol 2 Mg Tab) 2 mg PO BID [facility] Last Admin: 09/07/21 09:13 Dose: 2 mg Lorazepam (Lorazepam 1 Mg Tab) 1 mg PO Q6H PRN PRN Reason: Anxiety Last Admin: 09/04/21 19:40 Dose: 1 mg Oxycodone/Acetaminophen (Oxycodone /Acetaminophen 5-325mg Tab) 1 tab PO Q6H PRN PRN Reason: Pain, Moderate (4-6) Last Admin: 09/06/21 13:31 Dose: 1 tab Ziprasidone (Ziprasidone Mesylate 20 Mg Vial) 20 mg IM Q4H PRN PRN Reason: Agitation Results - Results Labs/Vitals: Laboratory Last Values WBC 3.5 K/mm3 (4.5-11.0) L 09/01/21 11:27 RBC 3.33 M/mm3 (3.65-5.03) L 09/01/21 11:27 Hgb 8.1 gm/dl (11.8-15.2) L 09/01/21 11:27 Hct 27.2 % (35.5-45.6) L 09/01/21 11:27 MCV 82 fl (84-94) L 09/01/21 11:27 MCH 24 pg (28-32) L 09/01/21 11:27 MCHC 30 % (32-34) L 09/01/21 11:27 RDW 18.9 % (13.2-15.2) H 09/01/21 11:27 Plt Count 350 K/mm3 (140-440) 09/01/21 11:27 [place] % (Auto) Lumber Sticker 09/01/21 11:27 Add Manual Diff Complete 09/01/21 11:27 Total Counted 100 09/01/21 11:27 Seg Neuts % (Manual) 65.0 % (40.0-70.0) 09/01/21 11:27 Band Neutrophils % 1.0 % 09/01/21 11:27 Lymphocytes % (Manual) 15.0 % (13.4-35.0) 09/01/21 11:27 Reactive Lymphs % (Man) 1.0 % 09/01/21 11:27 Monocytes % (Manual) 17.0 % (0.0-7.3) H 09/01/21 11:27 Eosinophils % (Manual) 0 % (0.0-4.3) 09/01/21 11: Basophils % (Manual) 0 % (0.0-1.8) 09/01/21 11:27 Metamyelocytes % 1.0 % 09/01/21 11:27 Myelocytes % 0 % 09/01/21 11: Promyelocytes % 0 % 09/01/21 11: Blast Cells % 0 % 09/01/21 11:27 Nucleated RBC % Not Reportable 09/01/21 11:27 Seg Neutrophils # Man 2.3 K/mm3 (1.8-7.7) 09/01/21 11: Band Neutrophils # 0.0 K/mm3 09/01/21 11: Lymphocytes # (Manual) 0.5 K/mm3 (1.2-5.4) L 09/01/21 11:27 Abs React Lymphs (Man) 0.0 K/mm3 09/01/21 11: Monocytes # (Manual) 0.6 K/mm3 (0.0-0.8) 09/01/21 11: Eosinophils # (Manual) 0.0 K/mm3 (0.0-0.4) 09/01/21 11: Basophils # (Manual) 0.0 K/mm3 (0.0-0.1) 09/01/21 11: Metamyelocytes # 0.0 K/mm3 09/01/21 11: Myelocytes # 0.0 K/mm3 09/01/21 11:27 Promyelocytes # 0.0 K/mm3 09/01/21 11:27 Blast Cells # 0.0 K/mm3 09/01/21 11:27 WBC Morphology Not Reportable 09/01/21 11:27 Hypersegmented Neuts Not Reportable 09/01/21 11:27 Hyposegmented Neuts Not Reportable 09/01/21 11: Hypogranular Neuts Not Reportable 09/01/21 11:27 Smudge Cells Not Reportable 09/01/21 11:27 Toxic Granulation Not Reportable 09/01/21 11:27 Toxic Vacuolation Not Reportable 09/01/21 11:27 Dohle Bodies Not Reportable 09/01/21 11:27 Pelger-Huet Anomaly Not Reportable 09/01/21 11:27 Jeannine Rods Not Reportable 09/01/21 11:27 Platelet Estimate Consistent w auto 09/01/21 11:27 Clumped Platelets Not Reportable 09/01/21 11:27 Plt Clumps, EDTA Not Reportable 09/01/21 11:27 Large Platelets Few 09/01/21 11:27 Giant Platelets Not Reportable 09/01/21 11:27 Platelet Satelliting Not Reportable 09/01/21 11:27 Plt Morphology Comment Not Reportable 09/01/21 11:27 RBC Morphology Not Reportable 09/01/21 11:27 Dimorphic RBCs Not Reportable 09/01/21 11:27 Polychromasia Not Reportable 09/01/21 11:27 Hypochromasia 2+ 09/01/21 11:27 Poikilocytosis Not Reportable 09/01/21 11:27 Anisocytosis 1+ 09/01/21 11:27 Microcytosis Not Reportable 09/01/21 11:27 Macrocytosis Not Reportable 09/01/21 11:27 Spherocytes Not Reportable 09/01/21 11:27 Pappenheimer Bodies Not Reportable 09/01/21 11:27 Sickle Cells Not Reportable 09/01/21 11:27 Target Cells Not Reportable 09/01/21 11:27 Tear Drop Cells Not Reportable 09/01/21 11:27 Ovalocytes Not Reportable 09/01/21 11:27 Helmet Cells Not Reportable 09/01/21 11:27 [place] Bodies Not Reportable 09/01/21 11:27 [place] Rings Not Reportable 09/01/21 11:27 [place] Cells Not Reportable 09/01/21 11:27 Bite Cells Not Reportable 09/01/21 11:27 Crenated Cell Not Reportable 09/01/21 11:27 Elliptocytes Not Reportable 09/01/21 11:27 Acanthocytes (Spur) Not Reportable 09/01/21 11:27 Rouleaux Not Reportable 09/01/21 11:27 Hemoglobin C Crystals Not Reportable 09/01/21 11:27 Schistocytes Not Reportable 09/01/21 11:27 Malaria parasites Not Reportable 09/01/21 11:27 Oliverio Bodies Not Reportable 09/01/21 11:27 Hem Pathologist Commnt No 09/01/21 11:27 Sodium 139 mmol/L (137-145) 09/01/21 11:27 Potassium 3.4 mmol/L (3.6-5.0) L 09/01/21 11:27 Chloride 102.3 mmol/L (98-107) 09/01/21 11:27 Carbon Dioxide 24 mmol/L (22-30) 09/01/21 11:27 Anion Gap 16 mmol/L 09/01/21 11:27 BUN 21 mg/dL (9-20) H 09/01/21 11:27 Creatinine 1.4 mg/dL (0.8-1.3) H 09/01/21 11:27 Estimated GFR 49 ml/min 09/01/21 11:27 BUN/Creatinine Ratio 15 % 09/01/21 11:27 Glucose 139 mg/dL (75-100) H 09/01/21 11:27 Hemoglobin A1c < 4.0 % (4-6) L 09/01/21 11:27 Calcium 8.2 mg/dL (8.4-10.2) L 09/01/21 11:27 Total Bilirubin 1.30 mg/dL (0.1-1.2) H 09/01/21 11:27 AST 46 units/L (5-40) H 09/01/21 11:27 ALT 17 units/L (7-56) 09/01/21 11:27 Alkaline Phosphatase 41 units/L (35-129) 09/01/21 11:27 Total Protein 6.2 g/dL (6.3-8.2) L 09/01/21 11:27 Albumin 3.2 g/dL (3.9-5) L 09/01/21 11:27 Albumin/Globulin Ratio 1.1 % 09/01/21 11:27 Triglycerides 97 mg/dL (2-149) 09/01/21 11:27 Cholesterol 110 mg/dL (50-199) 09/01/21 11:27 LDL Cholesterol Direct 58 mg/dL (50-130) 09/01/21 11:27 HDL Cholesterol 30 mg/dL (40-59) L 09/01/21 11:27 Cholesterol/HDL Ratio 3.66 % 09/01/21 11:27 TSH 2.720 mlU/mL (0.270-4.200) 09/01/21 11:27 Last Vital Signs Temp 98.4 F 09/07/21 08:59 Pulse 72 09/07/21 08:59 Resp 24 09/07/21 08:59 BP 132/67 09/07/21 08:59 Pulse Ox 98 09/07/21 08:59
[2021-09-07] MEDS: LORazepam 1 MG TAB PO PRN (21:34)
[2021-09-08] MEDS: oxyCODONE /ACETAMINOPHEN 5-325MG TAB PO PRN ×2 (00:51→11:44)
[2021-09-08] MEDS: ACETAMINOPHEN 325 MG TAB PO SCH ×6 (01:03→21:45)
[2021-09-08] MEDS: LORazepam 1 MG TAB PO PRN ×2 (03:23→11:43)
[2021-09-08] MEDS ORDERED: WATER FOR INJ Sterile (PF) 10 ML ONE (08:27)
[2021-09-08] MEDS: FERROUS SULFATE 325 MG TAB PO SCH ×3 (08:28→20:31)
[2021-09-08] MEDS: FOLIC ACID 1 MG TAB PO SCH (09:04)
--- NOTE | 2021-09-08 11:01 | Progress Note ---
Assessment and Plan - Patient Problems (1) Vascular dementia with behavioral disturbance Current Visit: Yes Status: Acute Plan to address problem: Verbal prompting, verbal redirection, benzodiazepine therapy as clinically indicated. (2) Cerebral atherosclerosis Current Visit: Yes Status: Acute Plan to address problem: Risk factor reduction, antiplatelet therapy as clinically indicated, supportive care. (3) Encephalopathy Current Visit: Yes Status: Acute Plan to address problem: Supportive care, verbal redirection. Chronic in nature. (4) Generalized anxiety disorder Current Visit: Yes Status: Acute Plan to address problem: Benzodiazepine therapy as clinically indicated, continue medical management. (5) Malnutrition Current Visit: Yes Status: Acute Qualifiers: Protein-calorie malnutrition severity: moderate Plan to address problem: Dietary supplementation, increase protein intake. (6) Advance care planning Current Visit: Yes Status: Acute Plan to address problem: Disease education data, care plan discussed, diagnoses discussed, prognosis discussed. Patient is DNR as per request. Patient currently admitted to hospice care. +30 minutes. History Interval history: 76 YO Male with Vascular Dementia with Behavioral Disturbance, Cerebral Atherosclerosis, Encephalopathy, SANTA who is currently on Hospice Care. Pt is AND/DNR as per family request(). Pt is admitted to [facility] for psychiatric stabilization. Consult placed by Dr. Simmons for medical management. Patient seen and evaluated in the recreation room. Patient agitation/confusion improved. Patient remains comfortable. Patient exhibits tangential thinking with diminished cognition. No reported Nursing events. Hospitalist Physical - Constitutional Vitals: Temp Pulse Resp BP Pulse Ox 98.2 F 90 18 126/66 84 09/08/21 08:38 09/08/21 08:38 09/08/21 08:38 09/08/21 08:38 09/08/21 08:38 General appearance: Present: no acute distress, well-nourished - EENT Eyes: Present: PERRL ENT: hearing decreased - Neck Neck: Present: supple - Respiratory Respiratory effort: normal Respiratory: bilateral: diminished - Cardiovascular Rhythm: regular Heart Sounds: Present: S1 & S2 - Extremities Extremities: no ischemia Peripheral Pulses: within normal limits - Abdominal General gastrointestinal: soft, non-tender, non-distended - Integumentary Integumentary: Present: clear, dry - Psychiatric Psychiatric: cooperative - Neurologic Neurologic: CNII-XII intact Results - Labs CBC & Chem 7: 09/01/21 11:27 09/01/21 11:27 Labs: Laboratory Last Values WBC 3.5 K/mm3 (4.5-11.0) L 09/01/21 11: RBC 3.33 M/mm3 (3.65-5.03) L 09/01/21 11:27 Hgb 8.1 gm/dl (11.8-15.2) L 09/01/21 11: Hct 27.2 % (35.5-45.6) L 09/01/21 11: MCV 82 fl (84-94) L 09/01/21 11:27 MCH 24 pg (28-32) L 09/01/21 11: MCHC 30 % (32-34) L 09/01/21 11: RDW 18.9 % (13.2-15.2) H 09/01/21 11:27 Plt Count 350 K/mm3 (140-440) 09/01/21 11:27 [place] % (Auto) Instrument Repair Supervisor 09/01/21 11:27 Add Manual Diff Complete 09/01/21 11:27 Total Counted 100 09/01/21 11:27 Seg Neuts % (Manual) 65.0 % (40.0-70.0) 09/01/21 11: Band Neutrophils % 1.0 % 09/01/21 11: Lymphocytes % (Manual) 15.0 % (13.4-35.0) 09/01/21 11:27 Reactive Lymphs % (Man) 1.0 % 09/01/21 11: Monocytes % (Manual) 17.0 % (0.0-7.3) H 09/01/21 11:27 Eosinophils % (Manual) 0 % (0.0-4.3) 09/01/21 11:27 Basophils % (Manual) 0 % (0.0-1.8) 09/01/21 11:27 Metamyelocytes % 1.0 % 09/01/21 11:27 Myelocytes % 0 % 09/01/21 11:27 Promyelocytes % 0 % 09/01/21 11:27 Blast Cells % 0 % 09/01/21 11:27 Nucleated RBC % Not Reportable 09/01/21 11:27 Seg Neutrophils # Man 2.3 K/mm3 (1.8-7.7) 09/01/21 11:27 Band Neutrophils # 0.0 K/mm3 09/01/21 11:27 Lymphocytes # (Manual) 0.5 K/mm3 (1.2-5.4) L 09/01/21 11:27 Abs React Lymphs (Man) 0.0 K/mm3 09/01/21 11:27 Monocytes # (Manual) 0.6 K/mm3 (0.0-0.8) 09/01/21 11:27 Eosinophils # (Manual) 0.0 K/mm3 (0.0-0.4) 09/01/21 11:27 Basophils # (Manual) 0.0 K/mm3 (0.0-0.1) 09/01/21 11:27 Metamyelocytes # 0.0 K/mm3 09/01/21 11: Myelocytes # 0.0 K/mm3 09/01/21 11:27 Promyelocytes # 0.0 K/mm3 09/01/21 11:27 Blast Cells # 0.0 K/mm3 09/01/21 11:27 WBC Morphology Not Reportable 09/01/21 11:27 Hypersegmented Neuts Not Reportable 09/01/21 11:27 Hyposegmented Neuts Not Reportable 09/01/21 11:27 Hypogranular Neuts Not Reportable 09/01/21 11:27 Smudge Cells Not Reportable 09/01/21 11:27 Toxic Granulation Not Reportable 09/01/21 11:27 Toxic Vacuolation Not Reportable 09/01/21 11:27 Dohle Bodies Not Reportable 09/01/21 11:27 Pelger-Huet Anomaly Not Reportable 09/01/21 11:27 Jeannine Rods Not Reportable 09/01/21 11:27 Platelet Estimate Consistent w auto 09/01/21 11:27 Clumped Platelets Not Reportable 09/01/21 11:27 Plt Clumps, EDTA Not Reportable 09/01/21 11:27 Large Platelets Few 09/01/21 11:27 Giant Platelets Not Reportable 09/01/21 11:27 Platelet Satelliting Not Reportable 09/01/21 11:27 Plt Morphology Comment Not Reportable 09/01/21 11:27 RBC Morphology Not Reportable 09/01/21 11:27 Dimorphic RBCs Not Reportable 09/01/21 11:27 Polychromasia Not Reportable 09/01/21 11:27 Hypochromasia 2+ 09/01/21 11:27 Poikilocytosis Not Reportable 09/01/21 11:27 Anisocytosis 1+ 09/01/21 11:27 Microcytosis Not Reportable 09/01/21 11:27 Macrocytosis Not Reportable 09/01/21 11:27 Spherocytes Not Reportable 09/01/21 11:27 Pappenheimer Bodies Not Reportable 09/01/21 11:27 Sickle Cells Not Reportable 09/01/21 11:27 Target Cells Not Reportable 09/01/21 11:27 Tear Drop Cells Not Reportable 09/01/21 11:27 Ovalocytes Not Reportable 09/01/21 11:27 Helmet Cells Not Reportable 09/01/21 11:27 Morley-[place] Bodies Not Reportable 09/01/21 11:27 [place] Rings Not Reportable 09/01/21 11:27 [place] Cells Not Reportable 09/01/21 11:27 Bite Cells Not Reportable 09/01/21 11:27 Crenated Cell Not Reportable 09/01/21 11:27 Elliptocytes Not Reportable 09/01/21 11:27 Acanthocytes (Spur) Not Reportable 09/01/21 11:27 Rouleaux Not Reportable 09/01/21 11:27 Hemoglobin C Crystals Not Reportable 09/01/21 11:27 Schistocytes Not Reportable 09/01/21 11:27 Malaria parasites Not Reportable 09/01/21 11:27 Oliverio Bodies Not Reportable 09/01/21 11:27 Hem Pathologist Commnt No 09/01/21 11:27 Sodium 139 mmol/L (137-145) 09/01/21 11:27 Potassium 3.4 mmol/L (3.6-5.0) L 09/01/21 11:27 Chloride 102.3 mmol/L (98-107) 09/01/21 11:27 Carbon Dioxide 24 mmol/L (22-30) 09/01/21 11:27 Anion Gap 16 mmol/L 09/01/21 11:27 BUN 21 mg/dL (9-20) H 09/01/21 11:27 Creatinine 1.4 mg/dL (0.8-1.3) H 09/01/21 11:27 Estimated GFR 49 ml/min 09/01/21 11:27 BUN/Creatinine Ratio 15 % 09/01/21 11:27 Glucose 139 mg/dL (75-100) H 09/01/21 11:27 Hemoglobin A1c < 4.0 % (4-6) L 09/01/21 11:27 Calcium 8.2 mg/dL (8.4-10.2) L 09/01/21 11:27 Total Bilirubin 1.30 mg/dL (0.1-1.2) H 09/01/21 11:27 AST 46 units/L (5-40) H 09/01/21 11:27 ALT 17 units/L (7-56) 09/01/21 11:27 Alkaline Phosphatase 41 units/L (35-129) 09/01/21 11:27 Total Protein 6.2 g/dL (6.3-8.2) L 09/01/21 11:27 Albumin 3.2 g/dL (3.9-5) L 09/01/21 11:27 Albumin/Globulin Ratio 1.1 % 09/01/21 11:27 Triglycerides 97 mg/dL (2-149) 09/01/21 11:27 Cholesterol 110 mg/dL (50-199) 09/01/21 11:27 LDL Cholesterol Direct 58 mg/dL (50-130) 09/01/21 11:27 HDL Cholesterol 30 mg/dL (40-59) L 09/01/21 11:27 Cholesterol/HDL Ratio 3.66 % 09/01/21 11:27 TSH 2.720 mlU/mL (0.270-4.200) 09/01/21 11:27 [place]jeda/IV: Voiding Method Toilet Active Medications - Current Medications Current Medications: Generic Name Dose Route Start Last Admin Trade Name Freq PRN Reason Stop Dose Admin Acetaminophen 650 mg 08/29/21 10:00 09/08/21 10:05 Acetaminophen 325 Mg Tab PO 650 mg Q4HR ZULMA Administration Docusate Sodium 100 mg 08/29/21 09:00 Docusate Sodium 100 Mg Cap PO PRN ZULMA Ferrous Sulfate 325 mg 08/29/21 14:00 09/08/21 08:28 Ferrous Sulfate 325 Mg Tab PO 325 mg TID [facility] Administration Folic Acid 1 mg 08/29/21 10:00 09/08/21 09:04 Folic Acid 1 Mg Tab PO 1 mg DAILY ZULMA Administration Haloperidol 2 mg 09/02/21 10:00 09/07/21 21:34 Haloperidol 2 Mg Tab PO 2 mg BID ZULMA Administration Lorazepam 1 mg 08/28/21 13:10 09/08/21 03:23 Lorazepam 1 Mg Tab PO 1 mg Q6H PRN Administration Anxiety Oxycodone/Acetaminophen 1 tab 08/29/21 09:00 09/08/21 00:51 Oxycodone /Acetaminophen 5-325mg Tab PO 1 tab Q6H PRN Administration Pain, Moderate (4-6) Ziprasidone 20 mg 08/29/21 10:30 09/08/21 08:28 Ziprasidone Mesylate 20 Mg Vial IM 20 mg Q4H PRN Administration Agitation Nutrition/Malnutrition Assess - Dietary Evaluation Nutrition/Malnutrition Findings: Nutrition Notes Start: 09/04/21 18:25 Freq: Status: Active Protocol: Document 09/04/21 18:25 REJI (Rec: 09/04/21 18:35 REJI [id number]) Nutrition Notes Need for Assessment generated from: LOS Initial or Follow up Assessment Current Diagnosis Malnutrition Other Pertinent Diagnosis Vascular Dementia w/Behavioral Disturbance, Encephalopathy, Anxiety... Current Diet Pureed Diet (since B 08/31). Labs/Tests 09/04: K 3.4, BUN 21, Crea 1.4 , Glu 139, Ca 8.2, HbA1c <4.0. Pertinent Medications 09/04: Folic Acid, others nutritionally unremarkable. 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 Weight Status Appropriate Subjective/Other Information RD consult for LOS assessment. Pt's PO intake of meals has been Good (75-100%), according to ADL notes. Pt is on Room Air, O2 saturation @ 98%, according to Vital Signs notes. Pt will return to his Hospice Care Facility after discharge, according to Progress notes.. Pt is on DNR/DNI status as per family request, according to Progress notes. Percent of energy/protein needs met: Prescribed Pureed Diet provides for energy/protein needs (1,804 Kcal/77 g) during LOS. Burn Absent Trauma Absent GI Symptoms None Food Allergy No Skin Integrity/Comment Unspecified bruises. Current % PO Good (75-100%) Minimum of two criteria No #1 Nutrition Diagnosis No nutrition diagnosis at this time Is patient on ventilator? No Is Patient Ambulatory and/or Out of Bed Yes REE-([facility]-ambulatory/OOB) [ [id number] [id number]] Calculation Used for Recommendations [facility] Additional Notes Protein: 1-1.2 g/Kg ABW; 81-97 g/day. Fluids: 1 ml/Kcal, or as per MD. Nutrition Intervention Change Diet Order: Continue Pureed Diet. Revisit per MD consult or patient Sign Off request: Additional Comments Continue monitoring food tolerance, %PO intake of meals , and BM.
[2021-09-08] MEDS: HALOPERIDOL 2 MG TAB PO SCH ×2 (11:44→21:45)
--- NOTE | 2021-09-08 12:14 | Progress Note ---
Subjective Date of service: 09/08/21 Principal diagnosis: Dementia with behavioral disturbances Subjective Comment: The patient was seen today. He is confused. He is irritable. He says "I'm up starting to cook breakfast but they wont let me do what I want to do." The patient has the tech at bedside with him because staff says he is trying to get out of bed, very confused, unsteady gait and talking nonsensically. The nurse medicated the patient with Chris marrufo. Will start Valproic acid 125mg po BID to help stabilize mood. 09/07 The patient was seen today. He is confused, but pleasant. He is talking about "some white stuff that's on the floor." 09/06 The patient was seen today. He is confused. He is lying in bed. He is delusional. He says "they gone kill me." He says "the window is falling on me. I'm just gone stay out of the way." 09/05 The patient was seen today. He is confused. He is lying in bed staring straight ahead. I have to nudge him to get him to respond. He then looks at me and then turns his head back straight ahead. I nudge the patient and again and asks if he's okay and why isn't he talking. He politely grabs my hand and says good morning. He says "I just got back from a ." The patient will be placed with hospice upon discharge. 09/04:The patient was seen at breakfast today. He continues to endorse depression. He denies any current suicidal/homicidal ideation and denies hallucinations. No aggressive behavior reported. No changes made today. 09/03:The patient was seen this morning. He continues to endorse depression. He denies any current suicidal/homicidal ideation and denies hallucinations. No aggressive behavior reported. No changes made today. 09/02:The patient was seen this morning. He is alert and oriented to self. He reports doing well. He denies any current suicidal/homicidal ideation and denies hallucinations. No aggressive behavior reported. 09/01:The patient was seen this morning. The patient states " I'm just here." He endorses depression rating as 7-8/10. He denies any current suicidal/homicidal ideation and denies hallucinations. 08/31: The patient was seen this morning. The patient is resting quietly in bed. Per nurse, he had an uneventful night. 08/30: The patient was seen this morning. He is calm. He continues to be confused. Unable to assess SI/HI/ AVH due to current mentation. Start Haldol 2mg IM BID. REVIEW OF SYSTEMS Unable to obtain MENTAL STATUS EXAMINATION Unable to obtain Diagnoses: Delusional Disorder Treatment Plan Patient admitted for inpatient psychiatric evaluation, medication adjustment and close monitoring The patient's behavior, mood, sleep and appetite will be closely monitored. Patient enrolled in individual and group therapeutic sessions and encouraged to attend. Patient provided with a safe and structured environment. Patient's physical health needs will be addressed by the Hospitalist. Hospitalist Consulted Labs including CBC, CMP, Lipid profile and Hemoglobin A1C levels ordered for baseline reference Social Assessment will be completed and the Senior Science Consultant will work with patient and family to ensure a suitable and safe disposition Medication adjustment will be made as clinically indicated Continue Haldol 2mg po BID Start Valproic acid 125mg po BID Usual Wellness Yazidism/Preservation: - Start Trazodone 50 mg po QHS & 50 mg po QHS PRN between 10 PM & 2 AM for insomnia - Start Melatonin 5 mg po QHS to promote circadian rhythm The patient agreed on the treatment plan, understood the risk, benefit, alternative treatment, potential consequence of no treatment, and gave informed consent. Estimated days: 2 Post hospital care: primary care provider, psychiatric provider Case staffed with Dr. Herndon Medications and Allergies Allergies Allergy/AdvReac Type Severity Reaction Status Date / Time No Known Allergies Allergy Verified 08/28/21 22:01 Home Medications Medication Instructions Recorded Confirmed Last Taken Type ALPRAZolam [Xanax TAB] 2 mg PO TID 08/27/21 08/27/21 Unknown History Acetaminophen [Aphen] 650 mg PO Q4HR 08/27/21 08/27/21 Unknown History Docusate Sodium [Colace CAP] 100 mg PO PRN 08/27/21 08/27/21 Unknown History Ferrous Sulfate [Feosol] 325 mg PO TID 08/27/21 08/27/21 Unknown History Folic Acid 1 mg PO DAILY 08/27/21 08/27/21 Unknown History Oxycodone HCl/Acetaminophen 1 tab PO Q6HR PRN 08/27/21 08/27/21 Unknown History [Percocet 10/325 mg] Active Meds: Active Medications Acetaminophen (Acetaminophen 325 Mg Tab) 650 mg PO Q4HR [facility] Last Admin: 09/08/21 10:05 Dose: 650 mg Docusate Sodium (Docusate Sodium 100 Mg Cap) 100 mg PO PRN ZULMA Ferrous Sulfate (Ferrous Sulfate 325 Mg Tab) 325 mg PO TID [facility] Last Admin: 09/08/21 08:28 Dose: 325 mg Folic Acid (Folic Acid 1 Mg Tab) 1 mg PO DAILY [facility] Last Admin: 09/08/21 09:04 Dose: 1 mg Haloperidol (Haloperidol 2 Mg Tab) 2 mg PO BID [facility] Last Admin: 09/08/21 11:44 Dose: 2 mg Lorazepam (Lorazepam 1 Mg Tab) 1 mg PO Q6H PRN PRN Reason: Anxiety Last Admin: 09/08/21 11:43 Dose: 1 mg Oxycodone/Acetaminophen (Oxycodone /Acetaminophen 5-325mg Tab) 1 tab PO Q6H PRN PRN Reason: Pain, Moderate (4-6) Last Admin: 09/08/21 11:44 Dose: 1 tab Ziprasidone (Ziprasidone Mesylate 20 Mg Vial) 20 mg IM Q4H PRN PRN Reason: Agitation Last Admin: 09/08/21 08:28 Dose: 20 mg Results - Results Labs/Vitals: Laboratory Last Values WBC 3.5 K/mm3 (4.5-11.0) L 09/01/21 11:27 RBC 3.33 M/mm3 (3.65-5.03) L 09/01/21 11:27 Hgb 8.1 gm/dl (11.8-15.2) L 09/01/21 11:27 Hct 27.2 % (35.5-45.6) L 09/01/21 11:27 MCV 82 fl (84-94) L 09/01/21 11:27 MCH 24 pg (28-32) L 09/01/21 11:27 MCHC 30 % (32-34) L 09/01/21 11:27 RDW 18.9 % (13.2-15.2) H 09/01/21 11:27 Plt Count 350 K/mm3 (140-440) 09/01/21 11:27 [place] % (Auto) Travelift Operator 09/01/21 11:27 Add Manual Diff Complete 09/01/21 11: Total Counted 100 09/01/21 11: Seg Neuts % (Manual) 65.0 % (40.0-70.0) 09/01/21 11: Band Neutrophils % 1.0 % 09/01/21 11: Lymphocytes % (Manual) 15.0 % (13.4-35.0) 09/01/21 11: Reactive Lymphs % (Man) 1.0 % 09/01/21 11: Monocytes % (Manual) 17.0 % (0.0-7.3) H 09/01/21 11:27 Eosinophils % (Manual) 0 % (0.0-4.3) 09/01/21 11: Basophils % (Manual) 0 % (0.0-1.8) 09/01/21 11: Metamyelocytes % 1.0 % 09/01/21 11: Myelocytes % 0 % 09/01/21 11: Promyelocytes % 0 % 09/01/21 11: Blast Cells % 0 % 09/01/21 11: Nucleated RBC % Not Reportable 09/01/21 11: Seg Neutrophils # Man 2.3 K/mm3 (1.8-7.7) 09/01/21 11: Band Neutrophils # 0.0 K/mm3 09/01/21 11: Lymphocytes # (Manual) 0.5 K/mm3 (1.2-5.4) L 09/01/21 11: Abs React Lymphs (Man) 0.0 K/mm3 09/01/21 11: Monocytes # (Manual) 0.6 K/mm3 (0.0-0.8) 09/01/21 11: Eosinophils # (Manual) 0.0 K/mm3 (0.0-0.4) 09/01/21 11: Basophils # (Manual) 0.0 K/mm3 (0.0-0.1) 09/01/21 11: Metamyelocytes # 0.0 K/mm3 09/01/21 11: Myelocytes # 0.0 K/mm3 09/01/21 11: Promyelocytes # 0.0 K/mm3 09/01/21 11: Blast Cells # 0.0 K/mm3 09/01/21 11:27 WBC Morphology Not Reportable 09/01/21 11:27 Hypersegmented Neuts Not Reportable 09/01/21 11:27 Hyposegmented Neuts Not Reportable 09/01/21 11:27 Hypogranular Neuts Not Reportable 09/01/21 11:27 Smudge Cells Not Reportable 09/01/21 11:27 Toxic Granulation Not Reportable 09/01/21 11:27 Toxic Vacuolation Not Reportable 09/01/21 11:27 Dohle Bodies Not Reportable 09/01/21 11:27 Pelger-Huet Anomaly Not Reportable 09/01/21 11:27 Jeannine Rods Not Reportable 09/01/21 11:27 Platelet Estimate Consistent w auto 09/01/21 11:27 Clumped Platelets Not Reportable 09/01/21 11:27 Plt Clumps, EDTA Not Reportable 09/01/21 11:27 Large Platelets Few 09/01/21 11:27 Giant Platelets Not Reportable 09/01/21 11:27 Platelet Satelliting Not Reportable 09/01/21 11:27 Plt Morphology Comment Not Reportable 09/01/21 11:27 RBC Morphology Not Reportable 09/01/21 11:27 Dimorphic RBCs Not Reportable 09/01/21 11:27 Polychromasia Not Reportable 09/01/21 11:27 Hypochromasia 2+ 09/01/21 11:27 Poikilocytosis Not Reportable 09/01/21 11:27 Anisocytosis 1+ 09/01/21 11:27 Microcytosis Not Reportable 09/01/21 11:27 Macrocytosis Not Reportable 09/01/21 11:27 Spherocytes Not Reportable 09/01/21 11:27 Pappenheimer Bodies Not Reportable 09/01/21 11:27 Sickle Cells Not Reportable 09/01/21 11:27 Target Cells Not Reportable 09/01/21 11:27 Tear Drop Cells Not Reportable 09/01/21 11:27 Ovalocytes Not Reportable 09/01/21 11:27 Helmet Cells Not Reportable 09/01/21 11:27 [place] Bodies Not Reportable 09/01/21 11:27 [place] Rings Not Reportable 09/01/21 11:27 [place] Cells Not Reportable 09/01/21 11:27 Bite Cells Not Reportable 09/01/21 11:27 Crenated Cell Not Reportable 09/01/21 11:27 Elliptocytes Not Reportable 09/01/21 11:27 Acanthocytes (Spur) Not Reportable 09/01/21 11:27 Rouleaux Not Reportable 09/01/21 11:27 Hemoglobin C Crystals Not Reportable 09/01/21 11:27 Schistocytes Not Reportable 09/01/21 11:27 Malaria parasites Not Reportable 09/01/21 11:27 Oliverio Bodies Not Reportable 09/01/21 11:27 Hem Pathologist Commnt No 09/01/21 11:27 Sodium 139 mmol/L (137-145) 09/01/21 11:27 Potassium 3.4 mmol/L (3.6-5.0) L 09/01/21 11:27 Chloride 102.3 mmol/L (98-107) 09/01/21 11:27 Carbon Dioxide 24 mmol/L (22-30) 09/01/21 11:27 Anion Gap 16 mmol/L 09/01/21 11:27 BUN 21 mg/dL (9-20) H 09/01/21 11:27 Creatinine 1.4 mg/dL (0.8-1.3) H 09/01/21 11:27 Estimated GFR 49 ml/min 09/01/21 11:27 BUN/Creatinine Ratio 15 % 09/01/21 11:27 Glucose 139 mg/dL (75-100) H 09/01/21 11:27 Hemoglobin A1c < 4.0 % (4-6) L 09/01/21 11:27 Calcium 8.2 mg/dL (8.4-10.2) L 09/01/21 11:27 Total Bilirubin 1.30 mg/dL (0.1-1.2) H 09/01/21 11:27 AST 46 units/L (5-40) H 09/01/21 11:27 ALT 17 units/L (7-56) 09/01/21 11:27 Alkaline Phosphatase 41 units/L (35-129) 09/01/21 11:27 Total Protein 6.2 g/dL (6.3-8.2) L 09/01/21 11:27 Albumin 3.2 g/dL (3.9-5) L 09/01/21 11:27 Albumin/Globulin Ratio 1.1 % 09/01/21 11:27 Triglycerides 97 mg/dL (2-149) 09/01/21 11: Cholesterol 110 mg/dL (50-199) 09/01/21 11:27 LDL Cholesterol Direct 58 mg/dL (50-130) 09/01/21 11: HDL Cholesterol 30 mg/dL (40-59) L 09/01/21 11:27 Cholesterol/HDL Ratio 3.66 % 09/01/21 11:27 TSH 2.720 mlU/mL (0.270-4.200) 09/01/21 11:27 Last Vital Signs Temp 98.2 F 09/08/21 08:38 Pulse 90 09/08/21 08:38 Resp 18 09/08/21 11:05 BP 126/66 09/08/21 08:38 Pulse Ox 84 09/08/21 08:38
[2021-09-08] MEDS: VALPROIC ACID 250 MG/5 ML ORAL LIQD PO SCH (21:45)
[2021-09-09] MEDS: ACETAMINOPHEN 325 MG TAB PO SCH ×6 (03:42→22:50)
[2021-09-09] MEDS: oxyCODONE /ACETAMINOPHEN 5-325MG TAB PO PRN (08:25)
[2021-09-09] MEDS: FERROUS SULFATE 325 MG TAB PO SCH ×3 (08:25→22:51)
[2021-09-09] MEDS: HALOPERIDOL 2 MG TAB PO SCH ×2 (09:00→22:51)
[2021-09-09] MEDS: FOLIC ACID 1 MG TAB PO SCH (09:00)
[2021-09-09] MEDS: VALPROIC ACID 250 MG/5 ML ORAL LIQD PO SCH ×2 (09:01→22:51)
--- NOTE | 2021-09-09 09:52 | Progress Note ---
Subjective Date of service: 09/09/21 Principal diagnosis: Dementia with behavioral disturbances Subjective Comment: The patient was seen today. He is sitting in the dayroom eating breakfast. He is much more calm today. He is confused, but not speaking as nonsensically today. He says he's hurting in his leg. He says he slept okay. 09/08 The patient was seen today. He is confused. He is irritable. He says "I'm up starting to cook breakfast but they wont let me do what I want to do." The patient has the tech at bedside with him because staff says he is trying to get out of bed, very confused, unsteady gait and talking nonsensically. The nurse medicated the patient with Chris marrufo. Will start Valproic acid 125mg po BID to help stabilize mood. 09/07 The patient was seen today. He is confused, but pleasant. He is talking about "some white stuff that's on the floor." 09/06 The patient was seen today. He is confused. He is lying in bed. He is delusional. He says "they gone kill me." He says "the window is falling on me. I'm just gone stay out of the way." 09/05 The patient was seen today. He is confused. He is lying in bed staring straight ahead. I have to nudge him to get him to respond. He then looks at me and then turns his head back straight ahead. I nudge the patient and again and asks if he's okay and why isn't he talking. He politely grabs my hand and says good morning. He says "I just got back from a ." The patient will be placed with hospice upon discharge. 09/04:The patient was seen at breakfast today. He continues to endorse d epression. He denies any current suicidal/homicidal ideation and denies hallucinations. No aggressive behavior reported. No changes made today. 09/03:The patient was seen this morning. He continues to endorse depression. He denies any current suicidal/homicidal ideation and denies hallucinations. No aggressive behavior reported. No changes made today. 09/02:The patient was seen this morning. He is alert and oriented to self. He reports doing well. He denies any current suicidal/homicidal ideation and denies hallucinations. No aggressive behavior reported. 09/01:The patient was seen this morning. The patient states " I'm just here." He endorses depression rating as 7-8/10. He denies any current suicidal/homicidal ideation and denies hallucinations. 08/31: The patient was seen this morning. The patient is resting quietly in bed. Per nurse, he had an uneventful night. 08/30: The patient was seen this morning. He is calm. He continues to be confused. Unable to assess SI/HI/ AVH due to current mentation. Start Haldol 2mg IM BID. REVIEW OF SYSTEMS Unable to obtain MENTAL STATUS EXAMINATION Unable to obtain Diagnoses: Delusional Disorder Treatment Plan Patient admitted for inpatient psychiatric evaluation, medication adjustment and close monitoring The patient's behavior, mood, sleep and appetite will be closely monitored. Patient enrolled in individual and group therapeutic sessions and encouraged to attend. Patient provided with a safe and structured environment. Patient's physical health needs will be addressed by the Hospitalist. H ospitalist Consulted Labs including CBC, CMP, Lipid profile and Hemoglobin A1C levels ordered for baseline reference Social Assessment will be completed and the Needle Process Felt Goods Supervisor will work with patient and family to ensure a suitable and safe disposition Medication adjustment will be made as clinically indicated Continue Haldol 2mg po BID Continue Valproic acid 125mg po BID Usual Wellness Sabianism/Preservation: - Start Trazodone 50 mg po QHS & 50 mg po QHS PRN between 10 PM & 2 AM for insomnia - Start Melatonin 5 mg po QHS to promote circadian rhythm The patient agreed on the treatment plan, understood the risk, benefit, alternative treatment, potential consequence of no treatment, and gave informed consent. Estimated days: 2 Post hospital care: primary care provider, psychiatric provider Case staffed with Dr. Herndon Medications and Allergies Allergies Allergy/AdvReac Type Severity Reaction Status Date / Time No Known Allergies Allergy Verified 08/28/21 22:01 Home Medications Medication Instructions Recorded Confirmed Last Taken Type ALPRAZolam [Xanax TAB] 2 mg PO TID 08/27/21 08/27/21 Unknown History Acetaminophen [Aphen] 650 mg PO Q4HR 08/27/21 08/27/21 Unknown History Docusate Sodium [Colace CAP] 100 mg PO PRN 08/27/21 08/27/21 Unknown History Ferrous Sulfate [Feosol] 325 mg PO TID 08/27/21 08/27/21 Unknown History Folic Acid 1 mg PO DAILY 08/27/21 08/27/21 Unknown History Oxycodone HCl/Acetaminophen 1 tab PO Q6HR PRN 08/27/21 08/27/21 Unknown History [Percocet 10/325 mg] Active Meds: Active Medications Acetaminophen (Acetaminophen 325 Mg Tab) 650 mg PO Q4HR [facility] Last Admin: 09/09/21 09:00 Dose: 650 mg Docusate Sodium (Docusate Sodium 100 Mg Cap) 100 mg PO PRN [facility] Ferrous Sulfate (Ferrous Sulfate 325 Mg Tab) 325 mg PO TID [facility] Last Admin: 09/09/21 08:25 Dose: 325 mg Folic Acid (Folic Acid 1 Mg Tab) 1 mg PO DAILY [facility] Last Admin: 09/09/21 09:00 Dose: 1 mg Haloperidol (Haloperidol 2 Mg Tab) 2 mg PO BID [facility] Last Admin: 09/09/21 09:00 Dose: 2 mg Lorazepam (Lorazepam 1 Mg Tab) 1 mg PO Q6H PRN PRN Reason: Anxiety Last Admin: 09/08/21 11:43 Dose: 1 mg Oxycodone/Acetaminophen (Oxycodone /Acetaminophen 5-325mg Tab) 1 tab PO Q6H PRN PRN Reason: Pain, Moderate (4-6) Last Admin: 09/09/21 08:25 Dose: 1 tab Valproic Acid (Valproic Acid 250 Mg/5 Ml Oral Liqd) 125 mg PO BID [facility] Last Admin: 09/09/21 09:01 Dose: 125 mg Ziprasidone (Ziprasidone Mesylate 20 Mg Vial) 20 mg IM Q4H PRN PRN Reason: Agitation Last Admin: 09/08/21 08:28 Dose: 20 mg Results - Results Labs/Vitals: Laboratory Last Values WBC 3.5 K/mm3 (4.5-11.0) L 09/01/21 11:27 RBC 3.33 M/mm3 (3.65-5.03) L 09/01/21 11:27 Hgb 8.1 gm/dl (11.8-15.2) L 09/01/21 11:27 Hct 27.2 % (35.5-45.6) L 09/01/21 11:27 MCV 82 fl (84-94) L 09/01/21 11: MCH 24 pg (28-32) L 09/01/21 11: MCHC 30 % (32-34) L 09/01/21 11: RDW 18.9 % (13.2-15.2) H 09/01/21 11:27 Plt Count 350 K/mm3 (140-440) 09/01/21 11: [place] % (Auto) Licensed Plumber 09/01/21 11:27 Add Manual Diff Complete 09/01/21 11: Total Counted 100 09/01/21 11:27 Seg Neuts % (Manual) 65.0 % (40.0-70.0) 09/01/21 11: Band Neutrophils % 1.0 % 09/01/21 11: Lymphocytes % (Manual) 15.0 % (13.4-35.0) 09/01/21 11: Reactive Lymphs % (Man) 1.0 % 09/01/21 11: Monocytes % (Manual) 17.0 % (0.0-7.3) H 09/01/21 11:27 Eosinophils % (Manual) 0 % (0.0-4.3) 09/01/21 11: Basophils % (Manual) 0 % (0.0-1.8) 09/01/21 11: Metamyelocytes % 1.0 % 09/01/21 11: Myelocytes % 0 % 09/01/21 11: Promyelocytes % 0 % 09/01/21 11: Blast Cells % 0 % 09/01/21 11: Nucleated RBC % Not Reportable 09/01/21 11: Seg Neutrophils # Man 2.3 K/mm3 (1.8-7.7) 09/01/21 11: Band Neutrophils # 0.0 K/mm3 09/01/21 11:27 Lymphocytes # (Manual) 0.5 K/mm3 (1.2-5.4) L 09/01/21 11: Abs React Lymphs (Man) 0.0 K/mm3 09/01/21 11: Monocytes # (Manual) 0.6 K/mm3 (0.0-0.8) 09/01/21 11: Eosinophils # (Manual) 0.0 K/mm3 (0.0-0.4) 09/01/21 11:27 Basophils # (Manual) 0.0 K/mm3 (0.0-0.1) 09/01/21 11:27 Metamyelocytes # 0.0 K/mm3 09/01/21 11:27 Myelocytes # 0.0 K/mm3 09/01/21 11:27 Promyelocytes # 0.0 K/mm3 09/01/21 11:27 Blast Cells # 0.0 K/mm3 09/01/21 11:27 WBC Morphology Not Reportable 09/01/21 11:27 Hypersegmented Neuts Not Reportable 09/01/21 11:27 Hyposegmented Neuts Not Reportable 09/01/21 11:27 Hypogranular Neuts Not Reportable 09/01/21 11:27 Smudge Cells Not Reportable 09/01/21 11:27 Toxic Granulation Not Reportable 09/01/21 11:27 Toxic Vacuolation Not Reportable 09/01/21 11:27 Dohle Bodies Not Reportable 09/01/21 11:27 Pelger-Huet Anomaly Not Reportable 09/01/21 11:27 Jeannine Rods Not Reportable 09/01/21 11:27 Platelet Estimate Consistent w auto 09/01/21 11:27 Clumped Platelets Not Reportable 09/01/21 11:27 Plt Clumps, EDTA Not Reportable 09/01/21 11:27 Large Platelets Few 09/01/21 11:27 Giant Platelets Not Reportable 09/01/21 11:27 Platelet Satelliting Not Reportable 09/01/21 11:27 Plt Morphology Comment Not Reportable 09/01/21 11:27 RBC Morphology Not Reportable 09/01/21 11:27 Dimorphic RBCs Not Reportable 09/01/21 11:27 Polychromasia Not Reportable 09/01/21 11:27 Hypochromasia 2+ 09/01/21 11:27 Poikilocytosis Not Reportable 09/01/21 11:27 Anisocytosis 1+ 09/01/21 11:27 Microcytosis Not Reportable 09/01/21 11:27 Macrocytosis Not Reportable 09/01/21 11:27 Spherocytes Not Reportable 09/01/21 11:27 Pappenheimer Bodies Not Reportable 09/01/21 11:27 Sickle Cells Not Reportable 09/01/21 11:27 Target Cells Not Reportable 09/01/21 11:27 Tear Drop Cells Not Reportable 09/01/21 11:27 Ovalocytes Not Reportable 09/01/21 11:27 Helmet Cells Not Reportable 09/01/21 11:27 [place] Bodies Not Reportable 09/01/21 11:27 [place] Rings Not Reportable 09/01/21 11:27 [place] Cells Not Reportable 09/01/21 11:27 Bite Cells Not Reportable 09/01/21 11:27 Crenated Cell Not Reportable 09/01/21 11:27 Elliptocytes Not Reportable 09/01/21 11:27 Acanthocytes (Spur) Not Reportable 09/01/21 11:27 Rouleaux Not Reportable 09/01/21 11:27 Hemoglobin C Crystals Not Reportable 09/01/21 11:27 Schistocytes Not Reportable 09/01/21 11:27 Malaria parasites Not Reportable 09/01/21 11:27 Oliverio Bodies Not Reportable 09/01/21 11:27 Hem Pathologist Commnt No 09/01/21 11:27 Sodium 139 mmol/L (137-145) 09/01/21 11:27 Potassium 3.4 mmol/L (3.6-5.0) L 09/01/21 11:27 Chloride 102.3 mmol/L (98-107) 09/01/21 11:27 Carbon Dioxide 24 mmol/L (22-30) 09/01/21 11:27 Anion Gap 16 mmol/L 09/01/21 11:27 BUN 21 mg/dL (9-20) H 09/01/21 11:27 Creatinine 1.4 mg/dL (0.8-1.3) H 09/01/21 11:27 Estimated GFR 49 ml/min 09/01/21 11:27 BUN/Creatinine Ratio 15 % 09/01/21 11:27 Glucose 139 mg/dL (75-100) H 09/01/21 11:27 Hemoglobin A1c < 4.0 % (4-6) L 09/01/21 11:27 Calcium 8.2 mg/dL (8.4-10.2) L 09/01/21 11:27 Total Bilirubin 1.30 mg/dL (0.1-1.2) H 09/01/21 11:27 AST 46 units/L (5-40) H 09/01/21 11:27 ALT 17 units/L (7-56) 09/01/21 11:27 Alkaline Phosphatase 41 units/L (35-129) 09/01/21 11:27 Total Protein 6.2 g/dL (6.3-8.2) L 09/01/21 11:27 Albumin 3.2 g/dL (3.9-5) L 09/01/21 11:27 Albumin/Globulin Ratio 1.1 % 09/01/21 11:27 Triglycerides 97 mg/dL (2-149) 09/01/21 11:27 Cholesterol 110 mg/dL (50-199) 09/01/21 11:27 LDL Cholesterol Direct 58 mg/dL (50-130) 09/01/21 11:27 HDL Cholesterol 30 mg/dL (40-59) L 09/01/21 11:27 Cholesterol/HDL Ratio 3.66 % 09/01/21 11:27 TSH 2.720 mlU/mL (0.270-4.200) 09/01/21 11:27 Last Vital Signs Temp 97.8 F 09/09/21 08:42 Pulse 95 H 09/09/21 08:42 Resp 18 09/09/21 08:42 BP 112/61 09/09/21 08:42 Pulse Ox 96 09/09/21 08:42
[2021-09-10] MEDS: ACETAMINOPHEN 325 MG TAB PO SCH ×6 (03:34→23:45)
[2021-09-10] MEDS: VALPROIC ACID 250 MG/5 ML ORAL LIQD PO SCH ×2 (10:27→21:45)
[2021-09-10] MEDS: HALOPERIDOL 2 MG TAB PO SCH ×2 (10:27→21:46)
[2021-09-10] MEDS: FERROUS SULFATE 325 MG TAB PO SCH ×3 (10:27→21:44)
[2021-09-10] MEDS: FOLIC ACID 1 MG TAB PO SCH (10:27)
--- NOTE | 2021-09-10 10:35 | Progress Note ---
Subjective Date of service: 09/10/21 Principal diagnosis: Dementia with behavioral disturbances Subjective Comment: The patient was seen today. He is calm and cooperative, but confused. He says he's sick to his stomach. His breakfast tray is in front of him. The patient says he slept okay. He denies SI/HI. Start Zofran ODT q8h for N/V. 09/09 The patient was seen today. He is sitting in the dayroom eating breakfast. He is much more calm today. He is confused, but not speaking as nonsensically today. He says he's hurting in his leg. He says he slept okay. 09/08 The patient was seen today. He is confused. He is irritable. He says "I'm up starting to cook breakfast but they wont let me do what I want to do." The patient has the tech at bedside with him because staff says he is trying to get out of bed, very confused, unsteady gait and talking nonsensically. The nurse medicated the patient with Chris marrufo. Will start Valproic acid 125mg po BID to help stabilize mood. 09/07 The patient was seen today. He is confused, but pleasant. He is talking about "some white stuff that's on the floor." 09/06 The patient was seen today. He is confused. He is lying in bed. He is delusional. He says "they gone kill me." He says "the window is falling on me. I'm just gone stay out of the way." 09/05 The patient was seen today. He is confused. He is lying in bed staring straight ahead. I have to nudge him to get him to respond. He then looks at me and then turns his head back straight ahead. I nudge the patient and again and asks if he's okay and why isn't he talking. He politely grabs my hand and says good morning. He says "I just got back from a ." The patient will be placed with hospice upon discharge. 09/04:The patient was seen at breakfast today. He continues to endorse depression. He denies any current suicidal/homicidal ideation and denies hallucinations. No aggressive behavior reported. No changes made today. 09/03:The patient was seen this morning. He continues to endorse depression. He denies any current suicidal/homicidal ideation and denies hallucinations. No aggressive behavior reported. No changes made today. 09/02:The patient was seen this morning. He is alert and oriented to self. He reports doing well. He denies any current suicidal/homicidal ideation and denies hallucinations. No aggressive behavior reported. 09/01:The patient was seen this morning. The patient states " I'm just here." He endorses depression rating as 7-8/10. He denies any current suicidal/homicidal ideation and denies hallucinations. 08/31: The patient was seen this morning. The patient is resting quietly in bed. Per nurse, he had an uneventful night. 08/30: The patient was seen this morning. He is calm. He continues to be confused. Unable to assess SI/HI/ AVH due to current mentation. Start Haldol 2mg IM BID. REVIEW OF SYSTEMS Unable to obtain MENTAL STATUS EXAMINATION Unable to obtain Diagnoses: Delusional Disorder Treatment Plan Patient admitted for inpatient psychiatric evaluation, medication adjustment and close monitoring The patient's behavior, mood, sleep and appetite will be closely monitored. Patient enrolled in individual and group therapeutic sessions and encouraged to attend. Patient provided with a safe and structured environment. Patient's physical health needs will be addressed by the Hospitalist. Hospitalist Consulted Labs including CBC, CMP, Lipid profile and Hemoglobin A1C levels ordered for baseline reference Social Assessment will be completed and the [facility] will work with patient and family to ensure a suitable and safe disposition Medication adjustment will be made as clinically indicated Continue Haldol 2mg po BID Continue Valproic acid 125mg po BID Zofran 4mg ODT q8h prn N/V Usual Wellness Religious/Preservation: - Start Trazodone 50 mg po QHS & 50 mg po QHS PRN between 10 PM & 2 AM for insomnia - Start Melatonin 5 mg po QHS to promote circadian rhythm The patient agreed on the treatment plan, understood the risk, benefit, alternative treatment, potential consequence of no treatment, and gave informed consent. Estimated days: 2 Post hospital care: primary care provider, psychiatric provider Case staffed with Dr. Herndon Medications and Allergies Allergies Allergy/AdvReac Type Severity Reaction Status Date / Time No Known Allergies Allergy Verified 08/28/21 22:01 Home Medications Medication Instructions Recorded Confirmed Last Taken Type ALPRAZolam [Xanax TAB] 2 mg PO TID 08/27/21 08/27/21 Unknown History Acetaminophen [Aphen] 650 mg PO Q4HR 08/27/21 08/27/21 Unknown History Docusate Sodium [Colace CAP] 100 mg PO PRN 08/27/21 08/27/21 Unknown History Ferrous Sulfate [Feosol] 325 mg PO TID 08/27/21 08/27/21 Unknown History Folic Acid 1 mg PO DAILY 08/27/21 08/27/21 Unknown History Oxycodone HCl/Acetaminophen 1 tab PO Q6HR PRN 08/27/21 08/27/21 Unknown History [Percocet 10/325 mg] Active Meds: Active Medications Acetaminophen (Acetaminophen 325 Mg Tab) 650 mg PO Q4HR [facility] Last Admin: 09/10/21 06:57 Dose: 650 mg Docusate Sodium (Docusate Sodium 100 Mg Cap) 100 mg PO PRN ZULMA Ferrous Sulfate (Ferrous Sulfate 325 Mg Tab) 325 mg PO TID [facility] Last Admin: 09/10/21 10:27 Dose: 325 mg Folic Acid (Folic Acid 1 Mg Tab) 1 mg PO DAILY [facility] Last Admin: 09/10/21 10:27 Dose: 1 mg Haloperidol (Haloperidol 2 Mg Tab) 2 mg PO BID [facility] Last Admin: 09/10/21 10:27 Dose: 2 mg Lorazepam (Lorazepam 1 Mg Tab) 1 mg PO Q6H PRN PRN Reason: Anxiety Last Admin: 09/08/21 11:43 Dose: 1 mg Oxycodone/Acetaminophen (Oxycodone /Acetaminophen 5-325mg Tab) 1 tab PO Q6H PRN PRN Reason: Pain, Moderate (4-6) Last Admin: 09/09/21 08:25 Dose: 1 tab Valproic Acid (Valproic Acid 250 Mg/5 Ml Oral Liqd) 125 mg PO BID [facility] Last Admin: 09/10/21 10:27 Dose: 125 mg Ziprasidone (Ziprasidone Mesylate 20 Mg Vial) 20 mg IM Q4H PRN PRN Reason: Agitation Last Admin: 09/08/21 08:28 Dose: 20 mg Results - Results Labs/Vitals: Laboratory Last Values WBC 3.5 K/mm3 (4.5-11.0) L 09/01/21 11:27 RBC 3.33 M/mm3 (3.65-5.03) L 09/01/21 11: Hgb 8.1 gm/dl (11.8-15.2) L 09/01/21 11: Hct 27.2 % (35.5-45.6) L 09/01/21 11: MCV 82 fl (84-94) L 09/01/21 11: MCH 24 pg (28-32) L 09/01/21 11: MCHC 30 % (32-34) L 09/01/21 11:27 RDW 18.9 % (13.2-15.2) H 09/01/21 11:27 Plt Count 350 K/mm3 (140-440) 09/01/21 11: [place] % (Auto) Electric[employer] 09/01/21 11:27 Add Manual Diff Complete 09/01/21 11: Total Counted 100 09/01/21 11:27 Seg Neuts % (Manual) 65.0 % (40.0-70.0) 09/01/21 11:27 Band Neutrophils % 1.0 % 09/01/21 11: Lymphocytes % (Manual) 15.0 % (13.4-35.0) 09/01/21 11:27 Reactive Lymphs % (Man) 1.0 % 09/01/21 11: Monocytes % (Manual) 17.0 % (0.0-7.3) H 09/01/21 11:27 Eosinophils % (Manual) 0 % (0.0-4.3) 09/01/21 11:27 Basophils % (Manual) 0 % (0.0-1.8) 09/01/21 11:27 Metamyelocytes % 1.0 % 09/01/21 11:27 Myelocytes % 0 % 09/01/21 11:27 Promyelocytes % 0 % 09/01/21 11:27 Blast Cells % 0 % 09/01/21 11: Nucleated RBC % Not Reportable 09/01/21 11: Seg Neutrophils # Man 2.3 K/mm3 (1.8-7.7) 09/01/21 11:27 Band Neutrophils # 0.0 K/mm3 09/01/21 11:27 Lymphocytes # (Manual) 0.5 K/mm3 (1.2-5.4) L 09/01/21 11:27 Abs React Lymphs (Man) 0.0 K/mm3 09/01/21 11:27 Monocytes # (Manual) 0.6 K/mm3 (0.0-0.8) 09/01/21 11:27 Eosinophils # (Manual) 0.0 K/mm3 (0.0-0.4) 09/01/21 11: Basophils # (Manual) 0.0 K/mm3 (0.0-0.1) 09/01/21 11:27 Metamyelocytes # 0.0 K/mm3 09/01/21 11:27 Myelocytes # 0.0 K/mm3 09/01/21 11:27 Promyelocytes # 0.0 K/mm3 09/01/21 11:27 Blast Cells # 0.0 K/mm3 09/01/21 11:27 WBC Morphology Not Reportable 09/01/21 11:27 Hypersegmented Neuts Not Reportable 09/01/21 11:27 Hyposegmented Neuts Not Reportable 09/01/21 11:27 Hypogranular Neuts Not Reportable 09/01/21 11:27 Smudge Cells Not Reportable 09/01/21 11:27 Toxic Granulation Not Reportable 09/01/21 11:27 Toxic Vacuolation Not Reportable 09/01/21 11:27 Dohle Bodies Not Reportable 09/01/21 11:27 Pelger-Huet Anomaly Not Reportable 09/01/21 11:27 Jeannine Rods Not Reportable 09/01/21 11:27 Platelet Estimate Consistent w auto 09/01/21 11:27 Clumped Platelets Not Reportable 09/01/21 11:27 Plt Clumps, EDTA Not Reportable 09/01/21 11:27 Large Platelets Few 09/01/21 11:27 Giant Platelets Not Reportable 09/01/21 11:27 Platelet Satelliting Not Reportable 09/01/21 11:27 Plt Morphology Comment Not Reportable 09/01/21 11:27 RBC Morphology Not Reportable 09/01/21 11:27 Dimorphic RBCs Not Reportable 09/01/21 11:27 Polychromasia Not Reportable 09/01/21 11:27 Hypochromasia 2+ 09/01/21 11:27 Poikilocytosis Not Reportable 09/01/21 11:27 Anisocytosis 1+ 09/01/21 11:27 Microcytosis Not Reportable 09/01/21 11:27 Macrocytosis Not Reportable 09/01/21 11:27 Spherocytes Not Reportable 09/01/21 11:27 Pappenheimer Bodies Not Reportable 09/01/21 11:27 Sickle Cells Not Reportable 09/01/21 11:27 Target Cells Not Reportable 09/01/21 11:27 Tear Drop Cells Not Reportable 09/01/21 11:27 Ovalocytes Not Reportable 09/01/21 11:27 Helmet Cells Not Reportable 09/01/21 11:27 [place] Bodies Not Reportable 09/01/21 11:27 [place] Rings Not Reportable 09/01/21 11:27 [place] Cells Not Reportable 09/01/21 11:27 Bite Cells Not Reportable 09/01/21 11:27 Crenated Cell Not Reportable 09/01/21 11:27 Elliptocytes Not Reportable 09/01/21 11:27 Acanthocytes (Spur) Not Reportable 09/01/21 11:27 Rouleaux Not Reportable 09/01/21 11:27 Hemoglobin C Crystals Not Reportable 09/01/21 11:27 Schistocytes Not Reportable 09/01/21 11:27 Malaria parasites Not Reportable 09/01/21 11:27 Oliverio Bodies Not Reportable 09/01/21 11:27 Hem Pathologist Commnt No 09/01/21 11:27 Sodium 139 mmol/L (137-145) 09/01/21 11:27 Potassium 3.4 mmol/L (3.6-5.0) L 09/01/21 11:27 Chloride 102.3 mmol/L (98-107) 09/01/21 11:27 Carbon Dioxide 24 mmol/L (22-30) 09/01/21 11:27 Anion Gap 16 mmol/L 09/01/21 11:27 BUN 21 mg/dL (9-20) H 09/01/21 11:27 Creatinine 1.4 mg/dL (0.8-1.3) H 09/01/21 11:27 Estimated GFR 49 ml/min 09/01/21 11:27 BUN/Creatinine Ratio 15 % 09/01/21 11:27 Glucose 139 mg/dL (75-100) H 09/01/21 11:27 Hemoglobin A1c < 4.0 % (4-6) L 09/01/21 11:27 Calcium 8.2 mg/dL (8.4-10.2) L 09/01/21 11:27 Total Bilirubin 1.30 mg/dL (0.1-1.2) H 09/01/21 11:27 AST 46 units/L (5-40) H 09/01/21 11:27 ALT 17 units/L (7-56) 09/01/21 11:27 Alkaline Phosphatase 41 units/L (35-129) 09/01/21 11:27 Total Protein 6.2 g/dL (6.3-8.2) L 09/01/21 11:27 Albumin 3.2 g/dL (3.9-5) L 09/01/21 11:27 Albumin/Globulin Ratio 1.1 % 09/01/21 11:27 Triglycerides 97 mg/dL (2-149) 09/01/21 11:27 Cholesterol 110 mg/dL (50-199) 09/01/21 11:27 LDL Cholesterol Direct 58 mg/dL (50-130) 09/01/21 11:27 HDL Cholesterol 30 mg/dL (40-59) L 09/01/21 11:27 Cholesterol/HDL Ratio 3.66 % 09/01/21 11:27 TSH 2.720 mlU/mL (0.270-4.200) 09/01/21 11:27 Last Vital Signs Temp 98.7 F 09/09/21 20:00 Pulse 90 09/09/21 20:00 Resp 18 09/09/21 20:00 BP 131/74 09/09/21 20:00 Pulse Ox 97 09/09/21 20:00
--- NOTE | 2021-09-10 11:33 | Event Note ---
Date: 09/10/21 Spoke with the patient's spouse, Yoana. I updated her on the patient's progress, treatment plan and discharge plan. She asked was the patient being placed, because she says he can't come back home. I informed her that we are attempting to find placement for the patient. She also asked if the new facility would allow visitors. I informed her that, that would be something she would need to confirm with whatever facility he is placed.
[2021-09-11] MEDS: ACETAMINOPHEN 325 MG TAB PO SCH ×6 (02:42→21:37)
--- NOTE | 2021-09-11 08:38 | Progress Note ---
Subjective Date of service: 09/11/21 Principal diagnosis: Dementia with behavioral disturbances Subjective Comment: The patient was seen today. He is lying in bed awake. He is calm and cooperative. His thoughts are more organized. He says he doesn't feel too well. The patient says "I feel weak." When asking if he slept good, he replies "I don't ever sleep good." The patient says he is depressed. He says "I don't have anyone." I told him his had called and checked on him. He says "no she didn't. I don't have a ." The patient denies SI/HI. He says "no, I don't want to ." Will start Lexapro for depression. 09/11 The patient was seen today. He is calm and cooperative, but confused. He says he's sick to his stomach. His breakfast tray is in front of him. The patient says he slept okay. He denies SI/HI. Start Zofran ODT q8h for N/V. 09/09 The patient was seen today. He is sitting in the dayroom eating breakfast. He is much more calm today. He is confused, but not speaking as nonsensically today. He says he's hurting in his leg. He says he slept okay. 09/08 The patient was seen today. He is confused. He is irritable. He says "I'm up starting to cook breakfast but they wont let me do what I want to do." The patient has the tech at bedside with him because staff says he is trying to get out of bed, very confused, unsteady gait and talking nonsensically. The nurse medicated the patient with Chris marrufo. Will start Valproic acid 125mg po BID to help stabilize mood. 09/07 The patient was seen today. He is confused, but pleasant. He is talking about "some white stuff that's on the floor." 09/06 The patient was seen today. He is confused. He is lying in bed. He is delusional. He says "they gone kill me." He says "the window is falling on me. I'm just gone stay out of the way." 09/05 The patient was seen today. He is confused. He is lying in bed staring straight ahead. I have to nudge him to get him to respond. He then looks at me and then turns his head back straight ahead. I nudge the patient and again and asks if he's okay and why isn't he talking. He politely grabs my hand and says good morning. He says "I just got back from a ." The patient will be placed with hospice upon discharge. 09/04:The patient was seen at breakfast today. He continues to endorse depress ion. He denies any current suicidal/homicidal ideation and denies hallucinations. No aggressive behavior reported. No changes made today. 09/03:The patient was seen this morning. He continues to endorse depression. He denies any current suicidal/homicidal ideation and denies hallucinations. No aggressive behavior reported. No changes made today. 09/02:The patient was seen this morning. He is alert and oriented to self. He reports doing well. He denies any current suicidal/homicidal ideation and denies hallucinations. No aggressive behavior reported. 09/01:The patient was seen this morning. The patient states " I'm just here." He endorses depression rating as 7-8/10. He denies any current suicidal/homicidal ideation and denies hallucinations. 08/31: The patient was seen this morning. The patient is resting quietly in bed. Per nurse, he had an uneventful night. 08/30: The patient was seen this morning. He is calm. He continues to be confused. Unable to assess SI/HI/ AVH due to current mentation. Start Haldol 2mg IM BID. REVIEW OF SYSTEMS Unable to obtain MENTAL STATUS EXAMINATION Unable to obtain Diagnoses: Delusional Disorder Treatment Plan Patient admitted for inpatient psychiatric evaluation, medication adjustment and close monitoring The patient's behavior, mood, sleep and appetite will be closely monitored. Patient enrolled in individual and group therapeutic sessions and encouraged to attend. Patient provided with a safe and structured environment. Patient's physical health needs will be addressed by the Hospitalist. Hospita list Consulted Labs including CBC, CMP, Lipid profile and Hemoglobin A1C levels ordered for baseline reference Social Assessment will be completed and the Logistical Engineer will work with patient and family to ensure a suitable and safe disposition Medication adjustment will be made as clinically indicated Lexapro 5mg po daily Usual Wellness Yazdanism/Preservation: - Start Trazodone 50 mg po QHS & 50 mg po QHS PRN between 10 PM & 2 AM for insomnia - Start Melatonin 5 mg po QHS to promote circadian rhythm The patient agreed on the treatment plan, understood the risk, benefit, alternative treatment, potential consequence of no treatment, and gave informed consent. Estimated days: 2 Post hospital care: primary care provider, psychiatric provider Case staffed with Dr. Herndon Medications and Allergies Allergies Allergy/AdvReac Type Severity Reaction Status Date / Time No Known Allergies Allergy Verified 08/28/21 22:01 Home Medications Medication Instructions Recorded Confirmed Last Taken Type ALPRAZolam [Xanax TAB] 2 mg PO TID 08/27/21 08/27/21 Unknown History Acetaminophen [Aphen] 650 mg PO Q4HR 08/27/21 08/27/21 Unknown History Docusate Sodium [Colace CAP] 100 mg PO PRN 08/27/21 08/27/21 Unknown History Ferrous Sulfate [Feosol] 325 mg PO TID 08/27/21 08/27/21 Unknown History Folic Acid 1 mg PO DAILY 08/27/21 08/27/21 Unknown History Oxycodone HCl/Acetaminophen 1 tab PO Q6HR PRN 08/27/21 08/27/21 Unknown History [Percocet 10/325 mg] Active Meds: Active Medications Acetaminophen (Acetaminophen 325 Mg Tab) 650 mg PO Q4HR [facility] Last Admin: 09/11/21 06:23 Dose: 650 mg Docusate Sodium (Docusate Sodium 100 Mg Cap) 100 mg PO PRN [facility] Ferrous Sulfate (Ferrous Sulfate 325 Mg Tab) 325 mg PO TID [facility] Last Admin: 09/10/21 21:44 Dose: 325 mg Folic Acid (Folic Acid 1 Mg Tab) 1 mg PO DAILY [facility] Last Admin: 09/10/21 10:27 Dose: 1 mg Haloperidol (Haloperidol 2 Mg Tab) 2 mg PO BID [facility] Last Admin: 09/10/21 21:46 Dose: 2 mg Lorazepam (Lorazepam 1 Mg Tab) 1 mg PO Q6H PRN PRN Reason: Anxiety Last Admin: 09/08/21 11:43 Dose: 1 mg Ondansetron HCl (Ondansetron 4 Mg Odt Tab) 4 mg PO Q8H PRN PRN Reason: Nausea And Vomiting Oxycodone/Acetaminophen (Oxycodone /Acetaminophen 5-325mg Tab) 1 tab PO Q6H PRN PRN Reason: Pain, Moderate (4-6) Last Admin: 09/09/21 08:25 Dose: 1 tab Valproic Acid (Valproic Acid 250 Mg/5 Ml Oral Liqd) 125 mg PO BID [facility] Last Admin: 09/10/21 21:45 Dose: 125 mg Ziprasidone (Ziprasidone Mesylate 20 Mg Vial) 20 mg IM Q4H PRN PRN Reason: Agitation Last Admin: 09/08/21 08:28 Dose: 20 mg Results - Results Labs/Vitals: Laboratory Last Values WBC 3.5 K/mm3 (4.5-11.0) L 09/01/21 11:27 RBC 3.33 M/mm3 (3.65-5.03) L 09/01/21 11:27 Hgb 8.1 gm/dl (11.8-15.2) L 09/01/21 11:27 Hct 27.2 % (35.5-45.6) L 09/01/21 11:27 MCV 82 fl (84-94) L 09/01/21 11:27 MCH 24 pg (28-32) L 09/01/21 11:27 MCHC 30 % (32-34) L 09/01/21 11:27 RDW 18.9 % (13.2-15.2) H 09/01/21 11:27 Plt Count 350 K/mm3 (140-440) 09/01/21 11:27 [place] % (Auto) Director Financial Planning 09/01/21 11:27 Add Manual Diff Complete 09/01/21 11:27 Total Counted 100 09/01/21 11:27 Seg Neuts % (Manual) 65.0 % (40.0-70.0) 09/01/21 11:27 Band Neutrophils % 1.0 % 09/01/21 11:27 Lymphocytes % (Manual) 15.0 % (13.4-35.0) 09/01/21 11:27 Reactive Lymphs % (Man) 1.0 % 09/01/21 11:27 Monocytes % (Manual) 17.0 % (0.0-7.3) H 09/01/21 11:27 Eosinophils % (Manual) 0 % (0.0-4.3) 09/01/21 11: Basophils % (Manual) 0 % (0.0-1.8) 09/01/21 11: Metamyelocytes % 1.0 % 09/01/21 11: Myelocytes % 0 % 09/01/21 11:27 Promyelocytes % 0 % 09/01/21 11: Blast Cells % 0 % 09/01/21 11: Nucleated RBC % Not Reportable 09/01/21 11: Seg Neutrophils # Man 2.3 K/mm3 (1.8-7.7) 09/01/21 11: Band Neutrophils # 0.0 K/mm3 09/01/21 11: Lymphocytes # (Manual) 0.5 K/mm3 (1.2-5.4) L 09/01/21 11:27 Abs React Lymphs (Man) 0.0 K/mm3 09/01/21 11: Monocytes # (Manual) 0.6 K/mm3 (0.0-0.8) 09/01/21 11: Eosinophils # (Manual) 0.0 K/mm3 (0.0-0.4) 09/01/21 11: Basophils # (Manual) 0.0 K/mm3 (0.0-0.1) 09/01/21 11: Metamyelocytes # 0.0 K/mm3 09/01/21 11: Myelocytes # 0.0 K/mm3 09/01/21 11: Promyelocytes # 0.0 K/mm3 09/01/21 11: Blast Cells # 0.0 K/mm3 09/01/21 11:27 WBC Morphology Not Reportable 09/01/21 11:27 Hypersegmented Neuts Not Reportable 09/01/21 11:27 Hyposegmented Neuts Not Reportable 09/01/21 11:27 Hypogranular Neuts Not Reportable 09/01/21 11:27 Smudge Cells Not Reportable 09/01/21 11:27 Toxic Granulation Not Reportable 09/01/21 11:27 Toxic Vacuolation Not Reportable 09/01/21 11:27 Dohle Bodies Not Reportable 09/01/21 11:27 Pelger-Huet Anomaly Not Reportable 09/01/21 11:27 Jeannine Rods Not Reportable 09/01/21 11:27 Platelet Estimate Consistent w auto 09/01/21 11:27 Clumped Platelets Not Reportable 09/01/21 11:27 Plt Clumps, EDTA Not Reportable 09/01/21 11:27 Large Platelets Few 09/01/21 11:27 Giant Platelets Not Reportable 09/01/21 11:27 Platelet Satelliting Not Reportable 09/01/21 11:27 Plt Morphology Comment Not Reportable 09/01/21 11:27 RBC Morphology Not Reportable 09/01/21 11:27 Dimorphic RBCs Not Reportable 09/01/21 11:27 Polychromasia Not Reportable 09/01/21 11:27 Hypochromasia 2+ 09/01/21 11:27 Poikilocytosis Not Reportable 09/01/21 11:27 Anisocytosis 1+ 09/01/21 11:27 Microcytosis Not Reportable 09/01/21 11:27 Macrocytosis Not Reportable 09/01/21 11:27 Spherocytes Not Reportable 09/01/21 11:27 Pappenheimer Bodies Not Reportable 09/01/21 11:27 Sickle Cells Not Reportable 09/01/21 11:27 Target Cells Not Reportable 09/01/21 11:27 Tear Drop Cells Not Reportable 09/01/21 11:27 Ovalocytes Not Reportable 09/01/21 11:27 Helmet Cells Not Reportable 09/01/21 11:27 [place] Bodies Not Reportable 09/01/21 11:27 [place] Rings Not Reportable 09/01/21 11:27 [place] Cells Not Reportable 09/01/21 11:27 Bite Cells Not Reportable 09/01/21 11:27 Crenated Cell Not Reportable 09/01/21 11:27 Elliptocytes Not Reportable 09/01/21 11:27 Acanthocytes (Spur) Not Reportable 09/01/21 11:27 Rouleaux Not Reportable 09/01/21 11:27 Hemoglobin C Crystals Not Reportable 09/01/21 11:27 Schistocytes Not Reportable 09/01/21 11:27 Malaria parasites Not Reportable 09/01/21 11:27 Oliverio Bodies Not Reportable 09/01/21 11:27 Hem Pathologist Commnt No 09/01/21 11:27 Sodium 139 mmol/L (137-145) 09/01/21 11:27 Potassium 3.4 mmol/L (3.6-5.0) L 09/01/21 11:27 Chloride 102.3 mmol/L (98-107) 09/01/21 11:27 Carbon Dioxide 24 mmol/L (22-30) 09/01/21 11:27 Anion Gap 16 mmol/L 09/01/21 11:27 BUN 21 mg/dL (9-20) H 09/01/21 11:27 Creatinine 1.4 mg/dL (0.8-1.3) H 09/01/21 11:27 Estimated GFR 49 ml/min 09/01/21 11:27 BUN/Creatinine Ratio 15 % 09/01/21 11:27 Glucose 139 mg/dL (75-100) H 09/01/21 11:27 Hemoglobin A1c < 4.0 % (4-6) L 09/01/21 11:27 Calcium 8.2 mg/dL (8.4-10.2) L 09/01/21 11:27 Total Bilirubin 1.30 mg/dL (0.1-1.2) H 09/01/21 11:27 AST 46 units/L (5-40) H 09/01/21 11:27 ALT 17 units/L (7-56) 09/01/21 11:27 Alkaline Phosphatase 41 units/L (35-129) 09/01/21 11:27 Total Protein 6.2 g/dL (6.3-8.2) L 09/01/21 11:27 Albumin 3.2 g/dL (3.9-5) L 09/01/21 11:27 Albumin/Globulin Ratio 1.1 % 09/01/21 11:27 Triglycerides 97 mg/dL (2-149) 09/01/21 11:27 Cholesterol 110 mg/dL (50-199) 09/01/21 11:27 LDL Cholesterol Direct 58 mg/dL (50-130) 09/01/21 11:27 HDL Cholesterol 30 mg/dL (40-59) L 09/01/21 11:27 Cholesterol/HDL Ratio 3.66 % 09/01/21 11:27 TSH 2.720 mlU/mL (0.270-4.200) 09/01/21 11:27 Last Vital Signs Temp 99.9 F H 09/10/21 22:00 Pulse 83 09/10/21 22:00 Resp 18 09/10/21 22:00 BP 150/71 09/10/21 22:00 Pulse Ox 96 09/10/21 22:00
[2021-09-11] MEDS: VALPROIC ACID 250 MG/5 ML ORAL LIQD PO SCH ×2 (09:26→21:38)
[2021-09-11] MEDS: FERROUS SULFATE 325 MG TAB PO SCH ×3 (09:26→21:38)
[2021-09-11] MEDS: ESCITALOPRAM 10 MG TAB PO SCH (09:26)
[2021-09-11] MEDS: HALOPERIDOL 2 MG TAB PO SCH ×2 (09:27→21:36)
[2021-09-11] MEDS: FOLIC ACID 1 MG TAB PO SCH (09:27)
--- NOTE | 2021-09-11 09:37 | Progress Note ---
Assessment and Plan - Patient Problems (1) Vascular dementia with behavioral disturbance Current Visit: Yes Status: Acute Plan to address problem: Verbal prompting, verbal redirection, benzodiazepine therapy as clinically indicated. (2) Cerebral atherosclerosis Current Visit: Yes Status: Acute Plan to address problem: Risk factor reduction, antiplatelet therapy as clinically indicated, supportive care. (3) Encephalopathy Current Visit: Yes Status: Acute Plan to address problem: Supportive care, verbal redirection. Chronic in nature. (4) Generalized anxiety disorder Current Visit: Yes Status: Acute Plan to address problem: Benzodiazepine therapy as clinically indicated, continue medical management. (5) Malnutrition Current Visit: Yes Status: Acute Qualifiers: Protein-calorie malnutrition severity: moderate Plan to address problem: Dietary supplementation, increase protein intake. (6) Advance care planning Current Visit: Yes Status: Acute Plan to address problem: Disease education data, care plan discussed, diagnoses discussed, prognosis discussed. Patient is DNR as per request. Patient currently admitted to hospice care. +30 minutes. History Interval history: 76 YO Male with Vascular Dementia with Behavioral Disturbance, Cerebral Atherosclerosis, Encephalopathy, SANTA who is currently on Hospice Care. Pt is AND/DNR as per family request(). Pt is [facility] to [facility] for psychiatric stabilization. Consult placed by Dr. Simmons for medical management. Patient seen and evaluated in the recreation room. Patient agitation/confusion improved. Patient remains comfortable. Patient exhibits tangential thinking with diminished cognition. No reported Nursing events. Hospitalist Physical - Constitutional Vitals: Temp Pulse Resp BP Pulse Ox 98.2 F 85 16 133/68 96 09/11/21 07:55 09/11/21 07:55 09/11/21 07:55 09/11/21 07:55 09/11/21 07:55 General appearance: Present: no acute distress, well-nourished - EENT Eyes: Present: PERRL ENT: hearing decreased - Neck Neck: Present: supple - Respiratory Respiratory effort: normal Respiratory: bilateral: diminished - Cardiovascular Rhythm: regular Heart Sounds: Present: S1 & S2 - Extremities Extremities: no ischemia Peripheral Pulses: within normal limits - Abdominal General gastrointestinal: soft, non-tender, non-distended - Integumentary Integumentary: Present: clear, dry - Psychiatric Psychiatric: cooperative - Neurologic Neurologic: CNII-XII intact Results - Labs CBC & Chem 7: 09/01/21 11:27 09/01/21 11:27 Labs: Laboratory Last Values WBC 3.5 K/mm3 (4.5-11.0) L 09/01/21 11: RBC 3.33 M/mm3 (3.65-5.03) L 09/01/21 11:27 Hgb 8.1 gm/dl (11.8-15.2) L 09/01/21 11: Hct 27.2 % (35.5-45.6) L 09/01/21 11: MCV 82 fl (84-94) L 09/01/21 11:27 MCH 24 pg (28-32) L 09/01/21 11: MCHC 30 % (32-34) L 09/01/21 11: RDW 18.9 % (13.2-15.2) H 09/01/21 11:27 Plt Count 350 K/mm3 (140-440) 09/01/21 11:27 [place] % (Auto) Operations Assistant 09/01/21 11:27 Add Manual Diff Complete 09/01/21 11:27 Total Counted 100 09/01/21 11:27 Seg Neuts % (Manual) 65.0 % (40.0-70.0) 09/01/21 11: Band Neutrophils % 1.0 % 09/01/21 11: Lymphocytes % (Manual) 15.0 % (13.4-35.0) 09/01/21 11:27 Reactive Lymphs % (Man) 1.0 % 09/01/21 11: Monocytes % (Manual) 17.0 % (0.0-7.3) H 09/01/21 11:27 Eosinophils % (Manual) 0 % (0.0-4.3) 09/01/21 11:27 Basophils % (Manual) 0 % (0.0-1.8) 09/01/21 11:27 Metamyelocytes % 1.0 % 09/01/21 11:27 Myelocytes % 0 % 09/01/21 11:27 Promyelocytes % 0 % 09/01/21 11:27 Blast Cells % 0 % 09/01/21 11:27 Nucleated RBC % Not Reportable 09/01/21 11:27 Seg Neutrophils # Man 2.3 K/mm3 (1.8-7.7) 09/01/21 11:27 Band Neutrophils # 0.0 K/mm3 09/01/21 11:27 Lymphocytes # (Manual) 0.5 K/mm3 (1.2-5.4) L 09/01/21 11:27 Abs React Lymphs (Man) 0.0 K/mm3 09/01/21 11:27 Monocytes # (Manual) 0.6 K/mm3 (0.0-0.8) 09/01/21 11:27 Eosinophils # (Manual) 0.0 K/mm3 (0.0-0.4) 09/01/21 11:27 Basophils # (Manual) 0.0 K/mm3 (0.0-0.1) 09/01/21 11:27 Metamyelocytes # 0.0 K/mm3 09/01/21 11: Myelocytes # 0.0 K/mm3 09/01/21 11:27 Promyelocytes # 0.0 K/mm3 09/01/21 11:27 Blast Cells # 0.0 K/mm3 09/01/21 11:27 WBC Morphology Not Reportable 09/01/21 11:27 Hypersegmented Neuts Not Reportable 09/01/21 11:27 Hyposegmented Neuts Not Reportable 09/01/21 11:27 Hypogranular Neuts Not Reportable 09/01/21 11:27 Smudge Cells Not Reportable 09/01/21 11:27 Toxic Granulation Not Reportable 09/01/21 11:27 Toxic Vacuolation Not Reportable 09/01/21 11:27 Dohle Bodies Not Reportable 09/01/21 11:27 Pelger-Huet Anomaly Not Reportable 09/01/21 11:27 Jeannine Rods Not Reportable 09/01/21 11:27 Platelet Estimate Consistent w auto 09/01/21 11:27 Clumped Platelets Not Reportable 09/01/21 11:27 Plt Clumps, EDTA Not Reportable 09/01/21 11:27 Large Platelets Few 09/01/21 11:27 Giant Platelets Not Reportable 09/01/21 11:27 Platelet Satelliting Not Reportable 09/01/21 11:27 Plt Morphology Comment Not Reportable 09/01/21 11:27 RBC Morphology Not Reportable 09/01/21 11:27 Dimorphic RBCs Not Reportable 09/01/21 11:27 Polychromasia Not Reportable 09/01/21 11:27 Hypochromasia 2+ 09/01/21 11:27 Poikilocytosis Not Reportable 09/01/21 11:27 Anisocytosis 1+ 09/01/21 11:27 Microcytosis Not Reportable 09/01/21 11:27 Macrocytosis Not Reportable 09/01/21 11:27 Spherocytes Not Reportable 09/01/21 11:27 Pappenheimer Bodies Not Reportable 09/01/21 11:27 Sickle Cells Not Reportable 09/01/21 11:27 Target Cells Not Reportable 09/01/21 11:27 Tear Drop Cells Not Reportable 09/01/21 11:27 Ovalocytes Not Reportable 09/01/21 11:27 Helmet Cells Not Reportable 09/01/21 11:27 [place] Bodies Not Reportable 09/01/21 11:27 [place] Rings Not Reportable 09/01/21 11:27 [place] Cells Not Reportable 09/01/21 11:27 Bite Cells Not Reportable 09/01/21 11:27 Crenated Cell Not Reportable 09/01/21 11:27 Elliptocytes Not Reportable 09/01/21 11:27 Acanthocytes (Spur) Not Reportable 09/01/21 11:27 Rouleaux Not Reportable 09/01/21 11:27 Hemoglobin C Crystals Not Reportable 09/01/21 11:27 Schistocytes Not Reportable 09/01/21 11:27 Malaria parasites Not Reportable 09/01/21 11:27 Oliverio Bodies Not Reportable 09/01/21 11:27 Hem Pathologist Commnt No 09/01/21 11:27 Sodium 139 mmol/L (137-145) 09/01/21 11:27 Potassium 3.4 mmol/L (3.6-5.0) L 09/01/21 11:27 Chloride 102.3 mmol/L (98-107) 09/01/21 11:27 Carbon Dioxide 24 mmol/L (22-30) 09/01/21 11:27 Anion Gap 16 mmol/L 09/01/21 11:27 BUN 21 mg/dL (9-20) H 09/01/21 11:27 Creatinine 1.4 mg/dL (0.8-1.3) H 09/01/21 11:27 Estimated GFR 49 ml/min 09/01/21 11:27 BUN/Creatinine Ratio 15 % 09/01/21 11:27 Glucose 139 mg/dL (75-100) H 09/01/21 11:27 Hemoglobin A1c < 4.0 % (4-6) L 09/01/21 11:27 Calcium 8.2 mg/dL (8.4-10.2) L 09/01/21 11:27 Total Bilirubin 1.30 mg/dL (0.1-1.2) H 09/01/21 11:27 AST 46 units/L (5-40) H 09/01/21 11:27 ALT 17 units/L (7-56) 09/01/21 11:27 Alkaline Phosphatase 41 units/L (35-129) 09/01/21 11:27 Total Protein 6.2 g/dL (6.3-8.2) L 09/01/21 11:27 Albumin 3.2 g/dL (3.9-5) L 09/01/21 11:27 Albumin/Globulin Ratio 1.1 % 09/01/21 11:27 Triglycerides 97 mg/dL (2-149) 09/01/21 11:27 Cholesterol 110 mg/dL (50-199) 09/01/21 11:27 LDL Cholesterol Direct 58 mg/dL (50-130) 09/01/21 11:27 HDL Cholesterol 30 mg/dL (40-59) L 09/01/21 11:27 Cholesterol/HDL Ratio 3.66 % 09/01/21 11:27 TSH 2.720 mlU/mL (0.270-4.200) 09/01/21 11:27 Tejeda/IV: Voiding Method Toilet Active Medications - Current Medications Current Medications: Generic Name Dose Route Start Last Admin Trade Name Freq PRN Reason Stop Dose Admin Acetaminophen 650 mg 08/29/21 10:00 09/11/21 09:27 Acetaminophen 325 Mg Tab PO 650 mg Q4HR ZULMA Administration Docusate Sodium 100 mg 08/29/21 09:00 Docusate Sodium 100 Mg Cap PO PRN ZULMA Escitalopram Oxalate 5 mg 09/11/21 10:00 09/11/21 09:26 Escitalopram 10 Mg Tab PO 5 mg QDAY ZULMA Administration Ferrous Sulfate 325 mg 08/29/21 14:00 09/11/21 09:26 Ferrous Sulfate 325 Mg Tab PO 325 mg TID ZULMA Administration Folic Acid 1 mg 08/29/21 10:00 09/11/21 09:27 Folic Acid 1 Mg Tab PO 1 mg DAILY ZULMA Administration Haloperidol 2 mg 09/02/21 10:00 09/11/21 09:27 Haloperidol 2 Mg Tab PO 2 mg BID ZULMA Administration Lorazepam 1 mg 08/28/21 13:10 09/08/21 11:43 Lorazepam 1 Mg Tab PO 1 mg Q6H PRN Administration Anxiety Ondansetron HCl 4 mg 09/10/21 11:00 Ondansetron 4 Mg Odt Tab PO Q8H PRN Nausea And Vomiting Oxycodone/Acetaminophen 1 tab 08/29/21 09:00 09/09/21 08:25 Oxycodone /Acetaminophen 5-325mg Tab PO 1 tab Q6H PRN Administration Pain, Moderate (4-6) Valproic Acid 125 mg 09/08/21 22:00 09/11/21 09:26 Valproic Acid 250 Mg/5 Ml Oral Liqd PO 125 mg BID ZULMA Administration Ziprasidone 20 mg 08/29/21 10:30 09/08/21 08:28 Ziprasidone Mesylate 20 Mg Vial IM 20 mg Q4H PRN Administration Agitation Nutrition/Malnutrition Assess - Dietary Evaluation Nutrition/Malnutrition Findings: Nutrition Notes Start: 09/04/21 18:25 Freq: Status: Active Protocol: Document 09/04/21 18:25 REJI (Rec: 09/04/21 18:35 REJI [id number]) Nutrition Notes Need for Assessment generated from: LOS Initial or Follow up Assessment Current Diagnosis Malnutrition Other Pertinent Diagnosis Vascular Dementia w/Behavioral Disturbance, Encephalopathy, Anxiety... Current Diet Pureed Diet (since B 08/31). Labs/Tests 09/04: K 3.4, BUN 21, Crea 1.4 , Glu 139, Ca 8.2, HbA1c <4.0. Pertinent Medications 09/04: Folic Acid, others nutritionally unremarkable. 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 Weight Status Appropriate Subjective/Other Information RD consult for LOS assessment. Pt's PO intake of meals has been Good (75-100%), according to ADL notes. Pt is on Room Air, O2 saturation @ 98%, according to Vital Signs notes. Pt will return to his Hospice Care Facility after discharge, according to Progress notes.. Pt is on DNR/DNI status as per family request, according to Progress notes. Percent of energy/protein needs met: Prescribed Pureed Diet provides for energy/protein needs (1,804 Kcal/77 g) during LOS. Burn Absent Trauma Absent GI Symptoms None Food Allergy No Skin Integrity/Comment Unspecified bruises. Current % PO Good (75-100%) Minimum of two criteria No #1 Nutrition Diagnosis No nutrition diagnosis at this time Is patient on ventilator? No Is Patient Ambulatory and/or Out of Bed Yes REE-([facility]-ambulatory/OOB) [ 1805.453 NUTR.[id number]] Calculation Used for Recommendations [facility] Additional Notes Protein: 1-1.2 g/Kg ABW; 81-97 g/day. Fluids: 1 ml/Kcal, or as per MD. Nutrition Intervention Change Diet Order: Continue Pureed Diet. Revisit per MD consult or patient Sign Off request: Additional Comments Continue monitoring food tolerance, %PO intake of meals , and BM.
--- NOTE | 2021-09-11 09:39 | Progress Note ---
Assessment and Plan - Patient Problems (1) Vascular dementia with behavioral disturbance Current Visit: Yes Status: Acute Plan to address problem: Verbal prompting, verbal redirection, benzodiazepine therapy as clinically indicated. (2) Cerebral atherosclerosis Current Visit: Yes Status: Acute Plan to address problem: Risk factor reduction, antiplatelet therapy as clinically indicated, supportive care. (3) Encephalopathy Current Visit: Yes Status: Acute Plan to address problem: Supportive care, verbal redirection. Chronic in nature. (4) Generalized anxiety disorder Current Visit: Yes Status: Acute Plan to address problem: Benzodiazepine therapy as clinically indicated, continue medical management. (5) Malnutrition Current Visit: Yes Status: Acute Qualifiers: Protein-calorie malnutrition severity: moderate Plan to address problem: Dietary supplementation, increase protein intake. (6) Advance care planning Current Visit: Yes Status: Acute Plan to address problem: Disease education data, care plan discussed, diagnoses discussed, prognosis discussed. Patient is DNR as per request. Patient currently admitted to hospice care. +30 minutes. History Interval history: 76 YO Male with Vascular Dementia with Behavioral Disturbance, Cerebral Atherosclerosis, Encephalopathy, SANTA who is currently on Hospice Care. Pt is AND/DNR as per family request(). Pt is admitted to [facility] for psychiatric stabilization. Consult placed by Dr. Simmons for medical management. Patient seen and evaluated in the recreation room. Patient agitation/confusion improved. Patient remains comfortable. Patient exhibits tangential thinking with diminished cognition. No reported Nursing events. Hospitalist Physical - Constitutional Vitals: Temp Pulse Resp BP Pulse Ox 98.2 F 85 16 133/68 96 09/11/21 07:55 09/11/21 07:55 09/11/21 07:55 09/11/21 07:55 09/11/21 07:55 General appearance: Present: no acute distress, well-nourished - EENT Eyes: Present: PERRL ENT: hearing intact - Neck Neck: Present: supple - Respiratory Respiratory effort: normal Respiratory: bilateral: diminished - Cardiovascular Rhythm: regular Heart Sounds: Present: S1 & S2 - Extremities Extremities: no ischemia Peripheral Pulses: within normal limits - Abdominal General gastrointestinal: soft, non-tender, non-distended - Integumentary Integumentary: Present: clear, dry - Psychiatric Psychiatric: cooperative Results - Labs CBC & Chem 7: 09/01/21 11:27 09/01/21 11:27 Labs: Laboratory Last Values WBC 3.5 K/mm3 (4.5-11.0) L 09/01/21 11: RBC 3.33 M/mm3 (3.65-5.03) L 09/01/21 11:27 Hgb 8.1 gm/dl (11.8-15.2) L 09/01/21 11: Hct 27.2 % (35.5-45.6) L 09/01/21 11: MCV 82 fl (84-94) L 09/01/21 11:27 MCH 24 pg (28-32) L 09/01/21 11:27 MCHC 30 % (32-34) L 09/01/21 11:27 RDW 18.9 % (13.2-15.2) H 09/01/21 11: Plt Count 350 K/mm3 (140-440) 09/01/21 11:27 [place] % (Auto) Back Maker 09/01/21 11:27 Add Manual Diff Complete 09/01/21 11:27 Total Counted 100 09/01/21 11:27 Seg Neuts % (Manual) 65.0 % (40.0-70.0) 09/01/21 11: Band Neutrophils % 1.0 % 09/01/21 11:27 Lymphocytes % (Manual) 15.0 % (13.4-35.0) 09/01/21 11:27 Reactive Lymphs % (Man) 1.0 % 09/01/21 11:27 Monocytes % (Manual) 17.0 % (0.0-7.3) H 09/01/21 11:27 Eosinophils % (Manual) 0 % (0.0-4.3) 09/01/21 11:27 Basophils % (Manual) 0 % (0.0-1.8) 09/01/21 11:27 Metamyelocytes % 1.0 % 09/01/21 11:27 Myelocytes % 0 % 09/01/21 11:27 Promyelocytes % 0 % 09/01/21 11:27 Blast Cells % 0 % 09/01/21 11:27 Nucleated RBC % Not Reportable 09/01/21 11:27 Seg Neutrophils # Man 2.3 K/mm3 (1.8-7.7) 09/01/21 11:27 Band Neutrophils # 0.0 K/mm3 09/01/21 11:27 Lymphocytes # (Manual) 0.5 K/mm3 (1.2-5.4) L 09/01/21 11:27 Abs React Lymphs (Man) 0.0 K/mm3 09/01/21 11:27 Monocytes # (Manual) 0.6 K/mm3 (0.0-0.8) 09/01/21 11: Eosinophils # (Manual) 0.0 K/mm3 (0.0-0.4) 09/01/21 11:27 Basophils # (Manual) 0.0 K/mm3 (0.0-0.1) 09/01/21 11:27 Metamyelocytes # 0.0 K/mm3 09/01/21 11: Myelocytes # 0.0 K/mm3 09/01/21 11:27 Promyelocytes # 0.0 K/mm3 09/01/21 11:27 Blast Cells # 0.0 K/mm3 09/01/21 11:27 WBC Morphology Not Reportable 09/01/21 11:27 Hypersegmented Neuts Not Reportable 09/01/21 11:27 Hyposegmented Neuts Not Reportable 09/01/21 11:27 Hypogranular Neuts Not Reportable 09/01/21 11:27 Smudge Cells Not Reportable 09/01/21 11:27 Toxic Granulation Not Reportable 09/01/21 11:27 Toxic Vacuolation Not Reportable 09/01/21 11:27 Dohle Bodies Not Reportable 09/01/21 11:27 Pelger-Huet Anomaly Not Reportable 09/01/21 11:27 Jeannine Rods Not Reportable 09/01/21 11:27 Platelet Estimate Consistent w auto 09/01/21 11:27 Clumped Platelets Not Reportable 09/01/21 11:27 Plt Clumps, EDTA Not Reportable 09/01/21 11:27 Large Platelets Few 09/01/21 11:27 Giant Platelets Not Reportable 09/01/21 11:27 Platelet Satelliting Not Reportable 09/01/21 11:27 Plt Morphology Comment Not Reportable 09/01/21 11:27 RBC Morphology Not Reportable 09/01/21 11:27 Dimorphic RBCs Not Reportable 09/01/21 11:27 Polychromasia Not Reportable 09/01/21 11:27 Hypochromasia 2+ 09/01/21 11:27 Poikilocytosis Not Reportable 09/01/21 11:27 Anisocytosis 1+ 09/01/21 11:27 Microcytosis Not Reportable 09/01/21 11:27 Macrocytosis Not Reportable 09/01/21 11:27 Spherocytes Not Reportable 09/01/21 11:27 Pappenheimer Bodies Not Reportable 09/01/21 11:27 Sickle Cells Not Reportable 09/01/21 11:27 Target Cells Not Reportable 09/01/21 11:27 Tear Drop Cells Not Reportable 09/01/21 11:27 Ovalocytes Not Reportable 09/01/21 11:27 Helmet Cells Not Reportable 09/01/21 11:27 [place] Bodies Not Reportable 09/01/21 11:27 [place] Rings Not Reportable 09/01/21 11:27 [place] Cells Not Reportable 09/01/21 11:27 Bite Cells Not Reportable 09/01/21 11:27 Crenated Cell Not Reportable 09/01/21 11:27 Elliptocytes Not Reportable 09/01/21 11:27 Acanthocytes (Spur) Not Reportable 09/01/21 11:27 Rouleaux Not Reportable 09/01/21 11:27 Hemoglobin C Crystals Not Reportable 09/01/21 11:27 Schistocytes Not Reportable 09/01/21 11:27 Malaria parasites Not Reportable 09/01/21 11:27 Oliverio Bodies Not Reportable 09/01/21 11:27 Hem Pathologist Commnt No 09/01/21 11:27 Sodium 139 mmol/L (137-145) 09/01/21 11:27 Potassium 3.4 mmol/L (3.6-5.0) L 09/01/21 11:27 Chloride 102.3 mmol/L (98-107) 09/01/21 11:27 Carbon Dioxide 24 mmol/L (22-30) 09/01/21 11:27 Anion Gap 16 mmol/L 09/01/21 11:27 BUN 21 mg/dL (9-20) H 09/01/21 11:27 Creatinine 1.4 mg/dL (0.8-1.3) H 09/01/21 11:27 Estimated GFR 49 ml/min 09/01/21 11:27 BUN/Creatinine Ratio 15 % 09/01/21 11:27 Glucose 139 mg/dL (75-100) H 09/01/21 11:27 Hemoglobin A1c < 4.0 % (4-6) L 09/01/21 11:27 Calcium 8.2 mg/dL (8.4-10.2) L 09/01/21 11:27 Total Bilirubin 1.30 mg/dL (0.1-1.2) H 09/01/21 11:27 AST 46 units/L (5-40) H 09/01/21 11:27 ALT 17 units/L (7-56) 09/01/21 11:27 Alkaline Phosphatase 41 units/L (35-129) 09/01/21 11:27 Total Protein 6.2 g/dL (6.3-8.2) L 09/01/21 11:27 Albumin 3.2 g/dL (3.9-5) L 09/01/21 11:27 Albumin/Globulin Ratio 1.1 % 09/01/21 11:27 Triglycerides 97 mg/dL (2-149) 09/01/21 11:27 Cholesterol 110 mg/dL (50-199) 09/01/21 11:27 LDL Cholesterol Direct 58 mg/dL (50-130) 09/01/21 11:27 HDL Cholesterol 30 mg/dL (40-59) L 09/01/21 11:27 Cholesterol/HDL Ratio 3.66 % 09/01/21 11:27 TSH 2.720 mlU/mL (0.270-4.200) 09/01/21 11:27 Tejeda/IV: Voiding Method Toilet Active Medications - Current Medications Current Medications: Generic Name Dose Route Start Last Admin Trade Name Freq PRN Reason Stop Dose Admin Acetaminophen 650 mg 08/29/21 10:00 09/11/21 09:27 Acetaminophen 325 Mg Tab PO 650 mg Q4HR ZULMA Administration Docusate Sodium 100 mg 08/29/21 09:00 Docusate Sodium 100 Mg Cap PO PRN ZULMA Escitalopram Oxalate 5 mg 09/11/21 10:00 09/11/21 09:26 Escitalopram 10 Mg Tab PO 5 mg QDAY ZULMA Administration Ferrous Sulfate 325 mg 08/29/21 14:00 09/11/21 09:26 Ferrous Sulfate 325 Mg Tab PO 325 mg TID ZULMA Administration Folic Acid 1 mg 08/29/21 10:00 09/11/21 09:27 Folic Acid 1 Mg Tab PO 1 mg DAILY ZULMA Administration Haloperidol 2 mg 09/02/21 10:00 09/11/21 09:27 Haloperidol 2 Mg Tab PO 2 mg BID ZULMA Administration Lorazepam 1 mg 08/28/21 13:10 09/08/21 11:43 Lorazepam 1 Mg Tab PO 1 mg Q6H PRN Administration Anxiety Ondansetron HCl 4 mg 09/10/21 11:00 Ondansetron 4 Mg Odt Tab PO Q8H PRN Nausea And Vomiting Oxycodone/Acetaminophen 1 tab 08/29/21 09:00 09/09/21 08:25 Oxycodone /Acetaminophen 5-325mg Tab PO 1 tab Q6H PRN Administration Pain, Moderate (4-6) Valproic Acid 125 mg 09/08/21 22:00 09/11/21 09:26 Valproic Acid 250 Mg/5 Ml Oral Liqd PO 125 mg BID ZULMA Administration Ziprasidone 20 mg 08/29/21 10:30 09/08/21 08:28 Ziprasidone Mesylate 20 Mg Vial IM 20 mg Q4H PRN Administration Agitation Nutrition/Malnutrition Assess - Dietary Evaluation Nutrition/Malnutrition Findings: Nutrition Notes Start: 09/04/21 18:2 5 Freq: Status: Active Protocol: Document 09/04/21 18:25 REJI (Rec: 09/04/21 18:35 REJI [id number]) Nutrition Notes Need for Assessment generated from: LOS Initial or Follow up Assessment Current Diagnosis Malnutrition Other Pertinent Diagnosis Vascular Dementia w/Behavioral Disturbance, Encephalopathy, Anxiety... Current Diet Pureed Diet (since B 08/31). Labs/Tests 09/04: K 3.4, BUN 21, Crea 1.4 , Glu 139, Ca 8.2, HbA1c <4.0. Pertinent Medications 09/04: Folic Acid, others nutritionally unremarkable. 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 Weight Status Appropriate Subjective/Other Information RD consult for LOS assessment. Pt's PO intake of meals has been Good (75-100%), according to ADL notes. Pt is on Room Air, O2 saturation @ 98%, according to Vital Signs notes. Pt will return to his Hospice Care Facility after discharge, according to Progress notes.. Pt is on DNR/DNI status as per family request, according to Progress notes. Percent of energy/protein needs met: Prescribed Pureed Diet provides for energy/protein needs (1,804 Kcal/77 g) during LOS. Burn Absent Trauma Absent GI Symptoms None Food Allergy No Skin Integrity/Comment Unspecified bruises. Current % PO Good (75-100%) Minimum of two criteria No #1 Nutrition Diagnosis No nutrition diagnosis at this time Is patient on ventilator? No Is Patient Ambulatory and/or Out of Bed Yes REE-([place]-ambulatory/OOB) [ 1805.453 NUTR.[id number]] Calculation Used for Recommendations [facility] Additional Notes Protein: 1-1.2 g/Kg ABW; 81-97 g/day. Fluids: 1 ml/Kcal, or as per MD. Nutrition Intervention Change Diet Order: Continue Pureed Diet. Revisit per MD consult or patient Sign Off request: Additional Comments Continue monitoring food tolerance, %PO intake of meals , and BM.
[2021-09-11] MEDS: ONDANSETRON 4 MG ODT TAB PO PRN (11:06)
--- NOTE | 2021-09-11 18:40 | Progress Note ---
Assessment and Plan - Patient Problems (1) Vascular dementia with behavioral disturbance Current Visit: Yes Status: Acute Plan to address problem: Verbal prompting, verbal redirection, benzodiazepine therapy as clinically indicated. (2) Cerebral atherosclerosis Current Visit: Yes Status: Acute Plan to address problem: Risk factor reduction, antiplatelet therapy as clinically indicated, supportive care. (3) Encephalopathy Current Visit: Yes Status: Acute Plan to address problem: Supportive care, verbal redirection. Chronic in nature. (4) Generalized anxiety disorder Current Visit: Yes Status: Acute Plan to address problem: Benzodiazepine therapy as clinically indicated, continue medical management. (5) Malnutrition Current Visit: Yes Status: Acute Qualifiers: Protein-calorie malnutrition severity: moderate Plan to address problem: Dietary supplementation, increase protein intake. (6) Advance care planning Current Visit: Yes Status: Acute Plan to address problem: Disease education data, care plan discussed, diagnoses discussed, prognosis discussed. Patient is DNR as per request. Patient currently admitted to hospice care. +30 minutes. History Interval history: 76 YO Male with Vascular Dementia with Behavioral Disturbance, Cerebral Atherosclerosis, Encephalopathy, SANTA who is currently on Hospice Care. Pt is AND/DNR as per family request(). Pt is admitted to [facility] for psychiatric stabilization. Consult placed by Dr. Simmons for medical management. Patient seen and evaluated in the recreation room. Patient remains comfortable. Patient exhibits tangential thinking with diminished cognition. No reported Nursing events. Hospitalist Physical - Constitutional Vitals: Temp Pulse Resp BP Pulse Ox 98.2 F 85 16 133/68 96 09/11/21 07:55 09/11/21 07:55 09/11/21 07:55 09/11/21 07:55 09/11/21 07:55 General appearance: Present: no acute distress, well-nourished - EENT Eyes: Present: PERRL ENT: hearing decreased - Neck Neck: Present: supple - Respiratory Respiratory effort: normal Respiratory: bilateral: CTA - Cardiovascular Rhythm: regular Heart Sounds: Present: S1 & S2 - Extremities Extremities: no ischemia Peripheral Pulses: within normal limits - Abdominal General gastrointestinal: soft, non-tender, non-distended - Integumentary Integumentary: Present: clear, dry - Psychiatric Psychiatric: cooperative - Neurologic Neurologic: CNII-XII intact Results - Labs CBC & Chem 7: 09/01/21 11:27 09/01/21 11:27 Labs: Laboratory Last Values WBC 3.5 K/mm3 (4.5-11.0) L 09/01/21 11: RBC 3.33 M/mm3 (3.65-5.03) L 09/01/21 11:27 Hgb 8.1 gm/dl (11.8-15.2) L 09/01/21 11: Hct 27.2 % (35.5-45.6) L 09/01/21 11: MCV 82 fl (84-94) L 09/01/21 11: MCH 24 pg (28-32) L 09/01/21 11: MCHC 30 % (32-34) L 09/01/21 11: RDW 18.9 % (13.2-15.2) H 09/01/21 11: Plt Count 350 K/mm3 (140-440) 09/01/21 11:27 [place] % (Auto) Tab Cutting Machine Operator 09/01/21 11:27 Add Manual Diff Complete 09/01/21 11: Total Counted 100 09/01/21 11:27 Seg Neuts % (Manual) 65.0 % (40.0-70.0) 09/01/21 11: Band Neutrophils % 1.0 % 09/01/21 11:27 Lymphocytes % (Manual) 15.0 % (13.4-35.0) 09/01/21 11:27 Reactive Lymphs % (Man) 1.0 % 09/01/21 11: Monocytes % (Manual) 17.0 % (0.0-7.3) H 09/01/21 11:27 Eosinophils % (Manual) 0 % (0.0-4.3) 09/01/21 11:27 Basophils % (Manual) 0 % (0.0-1.8) 09/01/21 11:27 Metamyelocytes % 1.0 % 09/01/21 11:27 Myelocytes % 0 % 09/01/21 11:27 Promyelocytes % 0 % 09/01/21 11:27 Blast Cells % 0 % 09/01/21 11:27 Nucleated RBC % Not Reportable 09/01/21 11: Seg Neutrophils # Man 2.3 K/mm3 (1.8-7.7) 09/01/21 11:27 Band Neutrophils # 0.0 K/mm3 09/01/21 11:27 Lymphocytes # (Manual) 0.5 K/mm3 (1.2-5.4) L 09/01/21 11:27 Abs React Lymphs (Man) 0.0 K/mm3 09/01/21 11:27 Monocytes # (Manual) 0.6 K/mm3 (0.0-0.8) 09/01/21 11:27 Eosinophils # (Manual) 0.0 K/mm3 (0.0-0.4) 09/01/21 11:27 Basophils # (Manual) 0.0 K/mm3 (0.0-0.1) 09/01/21 11:27 Metamyelocytes # 0.0 K/mm3 09/01/21 11: Myelocytes # 0.0 K/mm3 09/01/21 11:27 Promyelocytes # 0.0 K/mm3 09/01/21 11: Blast Cells # 0.0 K/mm3 09/01/21 11:27 WBC Morphology Not Reportable 09/01/21 11:27 Hypersegmented Neuts Not Reportable 09/01/21 11:27 Hyposegmented Neuts Not Reportable 09/01/21 11:27 Hypogranular Neuts Not Reportable 09/01/21 11:27 Smudge Cells Not Reportable 09/01/21 11:27 Toxic Granulation Not Reportable 09/01/21 11:27 Toxic Vacuolation Not Reportable 09/01/21 11:27 Dohle Bodies Not Reportable 09/01/21 11:27 Pelger-Huet Anomaly Not Reportable 09/01/21 11:27 Jeannine Rods Not Reportable 09/01/21 11:27 Platelet Estimate Consistent w auto 09/01/21 11:27 Clumped Platelets Not Reportable 09/01/21 11:27 Plt Clumps, EDTA Not Reportable 09/01/21 11:27 Large Platelets Few 09/01/21 11:27 Giant Platelets Not Reportable 09/01/21 11:27 Platelet Satelliting Not Reportable 09/01/21 11:27 Plt Morphology Comment Not Reportable 09/01/21 11:27 RBC Morphology Not Reportable 09/01/21 11:27 Dimorphic RBCs Not Reportable 09/01/21 11:27 Polychromasia Not Reportable 09/01/21 11:27 Hypochromasia 2+ 09/01/21 11:27 Poikilocytosis Not Reportable 09/01/21 11:27 Anisocytosis 1+ 09/01/21 11:27 Microcytosis Not Reportable 09/01/21 11:27 Macrocytosis Not Reportable 09/01/21 11:27 Spherocytes Not Reportable 09/01/21 11:27 Pappenheimer Bodies Not Reportable 09/01/21 11:27 Sickle Cells Not Reportable 09/01/21 11:27 Target Cells Not Reportable 09/01/21 11:27 Tear Drop Cells Not Reportable 09/01/21 11:27 Ovalocytes Not Reportable 09/01/21 11:27 Helmet Cells Not Reportable 09/01/21 11:27 [place] Bodies Not Reportable 09/01/21 11:27 [place] Rings Not Reportable 09/01/21 11:27 [place] Cells Not Reportable 09/01/21 11:27 Bite Cells Not Reportable 09/01/21 11:27 Crenated Cell Not Reportable 09/01/21 11:27 Elliptocytes Not Reportable 09/01/21 11:27 Acanthocytes (Spur) Not Reportable 09/01/21 11:27 Rouleaux Not Reportable 09/01/21 11:27 Hemoglobin C Crystals Not Reportable 09/01/21 11:27 Schistocytes Not Reportable 09/01/21 11:27 Malaria parasites Not Reportable 09/01/21 11:27 Oliverio Bodies Not Reportable 09/01/21 11:27 Hem Pathologist Commnt No 09/01/21 11:27 Sodium 139 mmol/L (137-145) 09/01/21 11:27 Potassium 3.4 mmol/L (3.6-5.0) L 09/01/21 11:27 Chloride 102.3 mmol/L (98-107) 09/01/21 11:27 Carbon Dioxide 24 mmol/L (22-30) 09/01/21 11:27 Anion Gap 16 mmol/L 09/01/21 11:27 BUN 21 mg/dL (9-20) H 09/01/21 11:27 Creatinine 1.4 mg/dL (0.8-1.3) H 09/01/21 11:27 Estimated GFR 49 ml/min 09/01/21 11:27 BUN/Creatinine Ratio 15 % 09/01/21 11:27 Glucose 139 mg/dL (75-100) H 09/01/21 11:27 Hemoglobin A1c < 4.0 % (4-6) L 09/01/21 11:27 Calcium 8.2 mg/dL (8.4-10.2) L 09/01/21 11:27 Total Bilirubin 1.30 mg/dL (0.1-1.2) H 09/01/21 11:27 AST 46 units/L (5-40) H 09/01/21 11:27 ALT 17 units/L (7-56) 09/01/21 11:27 Alkaline Phosphatase 41 units/L (35-129) 09/01/21 11:27 Total Protein 6.2 g/dL (6.3-8.2) L 09/01/21 11:27 Albumin 3.2 g/dL (3.9-5) L 09/01/21 11:27 Albumin/Globulin Ratio 1.1 % 09/01/21 11:27 Triglycerides 97 mg/dL (2-149) 09/01/21 11:27 Cholesterol 110 mg/dL (50-199) 09/01/21 11:27 LDL Cholesterol Direct 58 mg/dL (50-130) 09/01/21 11:27 HDL Cholesterol 30 mg/dL (40-59) L 09/01/21 11:27 Cholesterol/HDL Ratio 3.66 % 09/01/21 11:27 TSH 2.720 mlU/mL (0.270-4.200) 09/01/21 11:27 [place]/IV: Voiding Method Toilet Active Medications - Current Medications Current Medications: Generic Name Dose Route Start Last Admin Trade Name Freq PRN Reason Stop Dose Admin Acetaminophen 650 mg 08/29/21 10:00 09/11/21 17:43 Acetaminophen 325 Mg Tab PO 650 mg Q4HR ZULMA Administration Docusate Sodium 100 mg 08/29/21 09:00 Docusate Sodium 100 Mg Cap PO PRN ZULMA Escitalopram Oxalate 5 mg 09/11/21 10:00 09/11/21 09:26 Escitalopram 10 Mg Tab PO 5 mg QDAY ZULMA Administration Ferrous Sulfate 325 mg 08/29/21 14:00 09/11/21 14:42 Ferrous Sulfate 325 Mg Tab PO 325 mg TID ZULMA Administration Folic Acid 1 mg 08/29/21 10:00 09/11/21 09:27 Folic Acid 1 Mg Tab PO 1 mg DAILY ZULMA Administration Haloperidol 2 mg 09/02/21 10:00 09/11/21 09:27 Haloperidol 2 Mg Tab PO 2 mg BID ZULMA Administration Lorazepam 1 mg 08/28/21 13:10 09/08/21 11:43 Lorazepam 1 Mg Tab PO 1 mg Q6H PRN Administration Anxiety Ondansetron HCl 4 mg 09/10/21 11:00 09/11/21 11:06 Ondansetron 4 Mg Odt Tab PO 4 mg Q8H PRN Administration Nausea And Vomiting Oxycodone/Acetaminophen 1 tab 08/29/21 09:00 09/09/21 08:25 Oxycodone /Acetaminophen 5-325mg Tab PO 1 tab Q6H PRN Administration Pain, Moderate (4-6) Valproic Acid 125 mg 09/08/21 22:00 09/11/21 09:26 Valproic Acid 250 Mg/5 Ml Oral Liqd PO 125 mg BID ZULMA Administration Ziprasidone 20 mg 08/29/21 10:30 09/08/21 08:28 Ziprasidone Mesylate 20 Mg Vial IM 20 mg Q4H PRN Administration Agitation Nutrition/Malnutrition Assess - Dietary Evaluation Nutrition/Malnutrition Findings: Nutrition Notes Start: 09/04/21 18:25 Freq: Status: Active Protocol: Document 09/04/21 18:25 REJI (Rec: 09/04/21 18:35 REJI [id number]) Nutrition Notes Need for Assessment generated from: LOS Initial or Follow up Assessment Current Diagnosis Malnutrition Other Pertinent Diagnosis Vascular Dementia w/Behavioral Disturbance, Encephalopathy, Anxiety... Current Diet Pureed Diet (since B 08/31). Labs/Tests 09/04: K 3.4, BUN 21, Crea 1.4 , Glu 139, Ca 8.2, HbA1c <4.0. Pertinent Medications 09/04: Folic Acid, others nutritionally unremarkable. 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 Weight Status Appropriate Subjective/Other Information RD consult for LOS assessment. Pt's PO intake of meals has been Good (75-100%), according to ADL notes. Pt is on Room Air, O2 saturation @ 98%, according to Vital Signs notes. Pt will return to his Hospice Care Facility after discharge, according to Progress notes.. Pt is on DNR/DNI status as per family request, according to Progress notes. Percent of energy/protein needs met: Prescribed Pureed Diet provides for energy/protein needs (1,804 Kcal/77 g) during LOS. Burn Absent Trauma Absent GI Symptoms None Food Allergy No Skin Integrity/Comment Unspecified bruises. Current % PO Good (75-100%) Minimum of two criteria No #1 Nutrition Diagnosis No nutrition diagnosis at this time Is patient on ventilator? No Is Patient Ambulatory and/or Out of Bed Yes REE-([place]. or-ambulatory/OOB) [ [id number] [id number]] Calculation Used for Recommendations [place] Jeor Additional Notes Protein: 1-1.2 g/Kg ABW; 81-97 g/day. Fluids: 1 ml/Kcal, or as per MD. Nutrition Intervention Change Diet Order: Continue Pureed Diet. Revisit per MD consult or patient Sign Off request: Additional Comments Continue monitoring food tolerance, %PO intake of meals , and BM.
[2021-09-12] MEDS: ACETAMINOPHEN 325 MG TAB PO SCH ×6 (02:50→22:00)
--- NOTE | 2021-09-12 08:35 | Progress Note ---
Subjective Date of service: 09/12/21 Principal diagnosis: Dementia with behavioral disturbances Subjective Comment: 09/12:The patient was seen at breakfast. He reports sleep as fair. He states he is not doing well; states mood as slow and tired. The patient denies SI/HI. No changes made today. 09/11:The patient was seen today. He is lying in bed awake. He is calm and cooperative. His thoughts are more organized. He says he doesn't feel too well. The patient says "I feel weak." When asking if he slept good, he replies "I don't ever sleep good." The patient says he is depressed. He says "I don't have anyone." I told him his had called and checked on him. He says "no she didn't. I don't have a ." The patient denies SI/HI. He says "no, I don't want to ." Will start Lexapro for depression. 09/10 The patient was seen today. He is calm and cooperative, but confused. He says he's sick to his stomach. His breakfast tray is in front of him. The patient says he slept okay. He denies SI/HI. Start Zofran ODT q8h for N/V. 09/09 The patient was seen today. He is sitting in the dayroom eating breakfast. He is much more calm today. He is confused, but not speaking as nonsensically today. He says he's hurting in his leg. He says he slept okay. 09/08 The patient was seen today. He is confused. He is irritable. He says "I'm up starting to cook breakfast but they wont let me do what I want to do." The patient has the tech at bedside with him because staff says he is trying to get out of bed, very confused, unsteady gait and talking nonsensically. The nurse medicated the patient with Chris marrufo. Will start Valproic acid 125mg po BID to help stabilize mood. 09/07 The patient was seen today. He is confused, but pleasant. He is talking about "some white stuff that's on the floor." 09/06 The patient was seen today. He is confused. He is lying in bed. He is delusional. He says "they gone kill me." He says "the window is falling on me. I'm just gone stay out of the way." 09/05 The patient was seen today. He is confused. He is lying in bed staring straight ahead. I have to nudge him to get him to respond. He then looks at me and then turns his head back straight ahead. I nudge the patient and again and asks if he's okay and why isn't he talking. He politely grabs my hand and says good morning. He says "I just got back from a ." The patient will be placed with hospice upon discharge. 09/04:The patient was seen at breakfast today. He continues to endorse depression. He denies any current suicidal/homicidal ideation and denies hallucinations. No aggressive behavior reported. No changes made today. 09/03:The patient was seen this morning. He continues to endorse depression. He denies any current suicidal/homicidal ideation and denies hallucinations. No aggressive behavior reported. No changes made today. 09/02:The patient was seen this morning. He is alert and oriented to self. He reports doing well. He denies any current suicidal/homicidal ideation and denies hallucinations. No aggressive behavior reported. 09/01:The patient was seen this morning. The patient states " I'm just here." He endorses depression rating as 7-8/10. He denies any current suicidal/homicidal ideation and denies hallucinations. 08/31: The patient was seen this morning. The patient is resting quietly in bed. Per nurse, he had an uneventful night. 08/30: The patient was seen this morning. He is calm. He continues to be confused. Unable to assess SI/HI/ AVH due to current mentation. Start Haldol 2mg IM BID. REVIEW OF SYSTEMS Unable to obtain MENTAL STATUS EXAMINATION Unable to obtain Diagnoses: Delusional Disorder Treatment Plan Patient admitted for inpatient psychiatric evaluation, medication adjustment and close monitoring The patient's behavior, mood, sleep and appetite will be closely monitored. Patient enrolled in individual and group therapeutic sessions and encouraged to attend. Patient provided with a safe and structured environment. Patient's physical health needs will be addressed by the Hospitalist. Hospitalist Consulted Labs including CBC, CMP, Lipid profile and Hemoglobin A1C levels ordered for baseline reference Social Assessment will be completed and the Vending Machine Refiller will work with allison kang and family to ensure a suitable and safe disposition Medication adjustment will be made as clinically indicated Lexapro 5mg po daily Usual Wellness Adventist/Preservation: - Start Trazodone 50 mg po QHS & 50 mg po QHS PRN between 10 PM & 2 AM for insomnia - Start Melatonin 5 mg po QHS to promote circadian rhythm The patient agreed on the treatment plan, understood the risk, benefit, alternative treatment, potential consequence of no treatment, and gave informed consent. Estimated days: 2 Post hospital care: primary care provider, psychiatric provider Case staffed with Dr. Herndon Medications and Allergies Allergies Allergy/AdvReac Type Severity Reaction Status Date / Time No Known Allergies Allergy Verified 08/28/21 22:01 Home Medications Medication Instructions Recorded Confirmed Last Taken Type ALPRAZolam [Xanax TAB] 2 mg PO TID 08/27/21 08/27/21 Unknown History Acetaminophen [Aphen] 650 mg PO Q4HR 08/27/21 08/27/21 Unknown History Docusate Sodium [Colace CAP] 100 mg PO PRN 08/27/21 08/27/21 Unknown History Ferrous Sulfate [Feosol] 325 mg PO TID 08/27/21 08/27/21 Unknown History Folic Acid 1 mg PO DAILY 08/27/21 08/27/21 Unknown History Oxycodone HCl/Acetaminophen 1 tab PO Q6HR PRN 08/27/21 08/27/21 Unknown History [Percocet 10/325 mg] Active Meds: Active Medications Acetaminophen (Acetaminophen 325 Mg Tab) 650 mg PO Q4HR [facility] Last Admin: 09/12/21 05:34 Dose: Not Given Docusate Sodium (Docusate Sodium 100 Mg Cap) 100 mg PO PRN [facility] Escitalopram Oxalate (Escitalopram 10 Mg Tab) 5 mg PO QDAY [facility] Last Admin: 09/11/21 09:26 Dose: 5 mg Ferrous Sulfate (Ferrous Sulfate 325 Mg Tab) 325 mg PO TID [facility] Last Admin: 09/11/21 21:38 Dose: 325 mg Folic Acid (Folic Acid 1 Mg Tab) 1 mg PO DAILY [facility] Last Admin: 09/11/21 09:27 Dose: 1 mg Haloperidol (Haloperidol 2 Mg Tab) 2 mg PO BID [facility] Last Admin: 09/11/21 21:36 Dose: 2 mg Lorazepam (Lorazepam 1 Mg Tab) 1 mg PO Q6H PRN PRN Reason: Anxiety Last Admin: 09/08/21 11:43 Dose: 1 mg Ondansetron HCl (Ondansetron 4 Mg Odt Tab) 4 mg PO Q8H PRN PRN Reason: Nausea And Vomiting Last Admin: 09/11/21 11:06 Dose: 4 mg Oxycodone/Acetaminophen (Oxycodone /Acetaminophen 5-325mg Tab) 1 tab PO Q6H PRN PRN Reason: Pain, Moderate (4-6) Last Admin: 09/09/21 08:25 Dose: 1 tab Valproic Acid (Valproic Acid 250 Mg/5 Ml Oral Liqd) 125 mg PO BID ZULMA Last Admin: 09/11/21 21:38 Dose: 125 mg Ziprasidone (Ziprasidone Mesylate 20 Mg Vial) 20 mg IM Q4H PRN PRN Reason: Agitation Last Admin: 09/08/21 08:28 Dose: 20 mg Results - Results Labs/Vitals: Laboratory Last Values WBC 3.5 K/mm3 (4.5-11.0) L 09/01/21 11:27 RBC 3.33 M/mm3 (3.65-5.03) L 09/01/21 11:27 Hgb 8.1 gm/dl (11.8-15.2) L 09/01/21 11:27 Hct 27.2 % (35.5-45.6) L 09/01/21 11:27 MCV 82 fl (84-94) L 09/01/21 11:27 MCH 24 pg (28-32) L 09/01/21 11:27 MCHC 30 % (32-34) L 09/01/21 11:27 RDW 18.9 % (13.2-15.2) H 09/01/21 11:27 Plt Count 350 K/mm3 (140-440) 09/01/21 11:27 [place] % (Auto) Medical Staff Physician 09/01/21 11:27 Add Manual Diff Complete 09/01/21 11:27 Total Counted 100 09/01/21 11:27 Seg Neuts % (Manual) 65.0 % (40.0-70.0) 09/01/21 11:27 Band Neutrophils % 1.0 % 09/01/21 11: Lymphocytes % (Manual) 15.0 % (13.4-35.0) 09/01/21 11:27 Reactive Lymphs % (Man) 1.0 % 09/01/21 11: Monocytes % (Manual) 17.0 % (0.0-7.3) H 09/01/21 11:27 Eosinophils % (Manual) 0 % (0.0-4.3) 09/01/21 11:27 Basophils % (Manual) 0 % (0.0-1.8) 09/01/21 11:27 Metamyelocytes % 1.0 % 09/01/21 11: Myelocytes % 0 % 09/01/21 11: Promyelocytes % 0 % 09/01/21 11: Blast Cells % 0 % 09/01/21 11: Nucleated RBC % Not Reportable 09/01/21 11: Seg Neutrophils # Man 2.3 K/mm3 (1.8-7.7) 09/01/21 11: Band Neutrophils # 0.0 K/mm3 09/01/21 11:27 Lymphocytes # (Manual) 0.5 K/mm3 (1.2-5.4) L 09/01/21 11: Abs React Lymphs (Man) 0.0 K/mm3 09/01/21 11: Monocytes # (Manual) 0.6 K/mm3 (0.0-0.8) 09/01/21 11: Eosinophils # (Manual) 0.0 K/mm3 (0.0-0.4) 09/01/21 11: Basophils # (Manual) 0.0 K/mm3 (0.0-0.1) 09/01/21 11:27 Metamyelocytes # 0.0 K/mm3 09/01/21 11: Myelocytes # 0.0 K/mm3 09/01/21 11: Promyelocytes # 0.0 K/mm3 09/01/21 11: Blast Cells # 0.0 K/mm3 09/01/21 11:27 WBC Morphology Not Reportable 09/01/21 11: Hypersegmented Neuts Not Reportable 09/01/21 11: Hyposegmented Neuts Not Reportable 09/01/21 11: Hypogranular Neuts Not Reportable 05/16/22 11:27 Smudge Cells Not Reportable 09/01/21 11:27 Toxic Granulation Not Reportable 09/01/21 11:27 Toxic Vacuolation Not Reportable 09/01/21 11:27 Dohle Bodies Not Reportable 09/01/21 11:27 Pelger-Huet Anomaly Not Reportable 09/01/21 11:27 Jeannine Rods Not Reportable 09/01/21 11:27 Platelet Estimate Consistent w auto 09/01/21 11:27 Clumped Platelets Not Reportable 09/01/21 11:27 Plt Clumps, EDTA Not Reportable 09/01/21 11:27 Large Platelets Few 09/01/21 11:27 Giant Platelets Not Reportable 09/01/21 11:27 Platelet Satelliting Not Reportable 09/01/21 11:27 Plt Morphology Comment Not Reportable 09/01/21 11:27 RBC Morphology Not Reportable 09/01/21 11:27 Dimorphic RBCs Not Reportable 09/01/21 11:27 Polychromasia Not Reportable 09/01/21 11:27 Hypochromasia 2+ 09/01/21 11:27 Poikilocytosis Not Reportable 09/01/21 11:27 Anisocytosis 1+ 09/01/21 11:27 Microcytosis Not Reportable 09/01/21 11:27 Macrocytosis Not Reportable 09/01/21 11:27 Spherocytes Not Reportable 09/01/21 11:27 Pappenheimer Bodies Not Reportable 09/01/21 11:27 Sickle Cells Not Reportable 09/01/21 11:27 Target Cells Not Reportable 09/01/21 11:27 Tear Drop Cells Not Reportable 09/01/21 11:27 Ovalocytes Not Reportable 09/01/21 11:27 Helmet Cells Not Reportable 09/01/21 11:27 [place] Bodies Not Reportable 09/01/21 11:27 [place] Rings Not Reportable 09/01/21 11:27 [place] Cells Not Reportable 09/01/21 11:27 Bite Cells Not Reportable 09/01/21 11:27 Crenated Cell Not Reportable 09/01/21 11:27 Elliptocytes Not Reportable 09/01/21 11:27 Acanthocytes (Spur) Not Reportable 09/01/21 11:27 Rouleaux Not Reportable 09/01/21 11:27 Hemoglobin C Crystals Not Reportable 09/01/21 11:27 Schistocytes Not Reportable 09/01/21 11:27 Malaria parasites Not Reportable 09/01/21 11:27 Oliverio Bodies Not Reportable 09/01/21 11:27 Hem Pathologist Commnt No 09/01/21 11:27 Sodium 139 mmol/L (137-145) 09/01/21 11:27 Potassium 3.4 mmol/L (3.6-5.0) L 09/01/21 11:27 Chloride 102.3 mmol/L (98-107) 09/01/21 11:27 Carbon Dioxide 24 mmol/L (22-30) 09/01/21 11:27 Anion Gap 16 mmol/L 09/01/21 11:27 BUN 21 mg/dL (9-20) H 09/01/21 11:27 Creatinine 1.4 mg/dL (0.8-1.3) H 09/01/21 11:27 Estimated GFR 49 ml/min 09/01/21 11:27 BUN/Creatinine Ratio 15 % 09/01/21 11:27 Glucose 139 mg/dL (75-100) H 09/01/21 11:27 Hemoglobin A1c < 4.0 % (4-6) L 09/01/21 11:27 Calcium 8.2 mg/dL (8.4-10.2) L 09/01/21 11:27 Total Bilirubin 1.30 mg/dL (0.1-1.2) H 09/01/21 11:27 AST 46 units/L (5-40) H 09/01/21 11:27 ALT 17 units/L (7-56) 09/01/21 11:27 Alkaline Phosphatase 41 units/L (35-129) 09/01/21 11:27 Total Protein 6.2 g/dL (6.3-8.2) L 09/01/21 11:27 Albumin 3.2 g/dL (3.9-5) L 09/01/21 11:27 Albumin/Globulin Ratio 1.1 % 09/01/21 11:27 Triglycerides 97 mg/dL (2-149) 09/01/21 11:27 Cholesterol 110 mg/dL (50-199) 09/01/21 11:27 LDL Cholesterol Direct 58 mg/dL (50-130) 09/01/21 11: HDL Cholesterol 30 mg/dL (40-59) L 09/01/21 11: Cholesterol/HDL Ratio 3.66 % 09/01/21 11: TSH 2.720 mlU/mL (0.270-4.200) 09/01/21 11:27 Last Vital Signs Temp 97.6 F 09/11/21 20:03 Pulse 73 09/11/21 20:03 Resp 17 09/11/21 20:03 BP 145/70 09/11/21 20:03 Pulse Ox 95 09/11/21 20:03
[2021-09-12] MEDS: FERROUS SULFATE 325 MG TAB PO SCH ×3 (08:51→20:08)
[2021-09-12] MEDS: VALPROIC ACID 250 MG/5 ML ORAL LIQD PO SCH ×2 (10:06→22:58)
[2021-09-12] MEDS: FOLIC ACID 1 MG TAB PO SCH (10:07)
[2021-09-12] MEDS: ESCITALOPRAM 10 MG TAB PO SCH (10:07)
[2021-09-12] MEDS: HALOPERIDOL 2 MG TAB PO SCH ×2 (10:07→22:58)
[2021-09-13] MEDS: ACETAMINOPHEN 325 MG TAB PO SCH ×6 (01:56→21:20)
--- NOTE | 2021-09-13 09:21 | Progress Note ---
Subjective Date of service: 09/13/21 Principal diagnosis: Dementia with behavioral disturbances Subjective Comment: 09/13: The patient was see this morning. He states he is doing well " I'm not a super man, I feel tired." He denies depression " 0 this morning." The patient denies SI/HI. No changes made today. 09/12:The patient was seen at breakfast. He reports sleep as fair. He states he is not doing well; states mood as slow and tired. The patient denies SI/HI. No changes made today. 09/11:The patient was seen today. He is lying in bed awake. He is calm and cooperative. His thoughts are more organized. He says he doesn't feel too well. The patient says "I feel weak." When asking if he slept good, he replies "I don't ever sleep good." The patient says he is depressed. He says "I don't have anyone." I told him his had called and checked on him. He says "no she didn't. I don't have a ." The patient denies SI/HI. He says "no, I don't want to ." Will start Lexapro for depression. 09/10 The patient was seen today. He is calm and cooperative, but confused. He says he's sick to his stomach. His breakfast tray is in front of him. The patient says he slept okay. He denies SI/HI. Start Zofran ODT q8h for N/V. 09/09 The patient was seen today. He is sitting in the dayroom eating breakfast. He is much more calm today. He is confused, but not speaking as nonsensically today. He says he's hurting in his leg. He says he slept okay. 09/08 The patient was seen today. He is confused. He is irritable. He says "I'm up starting to cook breakfast but they wont let me do what I want to do." The patient has the tech at bedside with him because staff says he is trying to get out of bed, very confused, unsteady gait and talking nonsensically. The nurse medicated the patient with Chris marrufo. Will start Valproic acid 125mg po BID to help stabilize mood. 09/07 The patient was seen today. He is confused, but pleasant. He is talking about "some white stuff that's on the floor." 09/06 The patient was seen today. He is confused. He is lying in bed. He is delusional. He says "they gone kill me." He says "the window is falling on me. I'm just gone stay out of the way." 09/05 The patient was seen today. He is confused. He is lying in bed staring straight ahead. I have to nudge him to get him to respond. He then looks at me and then turns his head back straight ahead. I nudge the patient and again and asks if he's okay and why isn't he talking. He politely grabs my hand and says good morning. He says "I just got back from a ." The patient will be placed with hospice upon discharge. 09/04:The patient was seen at breakfast today. He continues to endorse depression. He denies any current suicidal/homicidal ideation and denies hallucinations. No aggressive behavior reported. No changes made today. 09/03:The patient was seen this morning. He continues to endorse depression. He denies any current suicidal/homicidal ideation and denies hallucinations. No aggressive behavior reported. No changes made today. 09/02:The patient was seen this morning. He is alert and oriented to self. He reports doing well. He denies any current suicidal/homicidal ideation and denies hallucinations. No aggressive behavior reported. 09/01:The patient was seen this morning. The patient states " I'm just here." He endorses depression rating as 7-8/10. He denies any current suicidal/homicidal ideation and denies hallucinations. 08/31: The patient was seen this morning. The patient is resting quietly in bed. Per nurse, he had an uneventful night. 08/30: The patient was seen this morning. He is calm. He continues to be confused. Unable to assess SI/HI/ AVH due to current mentation. Start Haldol 2mg IM BID. REVIEW OF SYSTEMS Unable to obtain MENTAL STATUS EXAMINATION Unable to obtain Diagnoses: Delusional Disorder Treatment Plan Patient admitted for inpatient psychiatric evaluation, medication adjustment and close monitoring The patient's behavior, mood, sleep and appetite will be closely monitored. Patient enrolled in individual and group therapeutic sessions and encouraged to attend. Patient provided with a safe and structured environment. Patient's physical health needs will be addressed by the Hospitalist. Hospitalist Consulted Labs including CBC, CMP, Lipid profile and Hemoglobin A1C levels ordered for baseline reference Social Assessment will be completed and the Platen Press Operator Apprentice will work with patient and family to ensure a suitable and safe disposition Medication adjustment will be made as clinically indicated Lexapro 5mg po daily Usual Wellness [employer]/Preservation: - Start Trazodone 50 mg po QHS & 50 mg po QHS PRN between 10 PM & 2 AM for insomnia - Start Melatonin 5 mg po QHS to promote circadian rhythm The patient agreed on the treatment plan, understood the risk, benefit, alternative treatment, potential consequence of no treatment, and gave informed consent. Estimated days: 2 Post hospital care: primary care provider, psychiatric provider Case staffed with Dr. Herndon Medications and Allergies Medications and Allergies Allergies Allergy/AdvReac Type Severity Reaction Status Date / Time No Known Allergies Allergy Verified 08/28/21 22:01 Home Medications Medication Instructions Recorded Confirmed Last Taken Type ALPRAZolam [Xanax TAB] 2 mg PO TID 08/27/21 08/27/21 Unknown History Acetaminophen [Aphen] 650 mg PO Q4HR 08/27/21 08/27/21 Unknown History Docusate Sodium [Colace CAP] 100 mg PO PRN 08/27/21 08/27/21 Unknown History Ferrous Sulfate [Feosol] 325 mg PO TID 08/27/21 08/27/21 Unknown History Folic Acid 1 mg PO DAILY 08/27/21 08/27/21 Unknown History Oxycodone HCl/Acetaminophen 1 tab PO Q6HR PRN 08/27/21 08/27/21 Unknown History [Percocet 10/325 mg] Active Meds: Active Medications Acetaminophen (Acetaminophen 325 Mg Tab) 650 mg PO Q4HR [facility] Last Admin: 09/13/21 06:06 Dose: 650 mg Docusate Sodium (Docusate Sodium 100 Mg Cap) 100 mg PO PRN [facility] Escitalopram Oxalate (Escitalopram 10 Mg Tab) 5 mg PO QDAY [facility] Last Admin: 09/12/21 10:07 Dose: 5 mg Ferrous Sulfate (Ferrous Sulfate 325 Mg Tab) 325 mg PO TID [facility] Last Admin: 09/12/21 20:08 Dose: 325 mg Folic Acid (Folic Acid 1 Mg Tab) 1 mg PO DAILY [facility] Last Admin: 09/12/21 10:07 Dose: 1 mg Haloperidol (Haloperidol 2 Mg Tab) 2 mg PO BID [facility] Last Admin: 09/12/21 22:58 Dose: 2 mg Lorazepam (Lorazepam 1 Mg Tab) 1 mg PO Q6H PRN PRN Reason: Anxiety Last Admin: 09/08/21 11:43 Dose: 1 mg Ondansetron HCl (Ondansetron 4 Mg Odt Tab) 4 mg PO Q8H PRN PRN Reason: Nausea And Vomiting Last Admin: 09/11/21 11:06 Dose: 4 mg Oxycodone/Acetaminophen (Oxycodone /Acetaminophen 5-325mg Tab) 1 tab PO Q6H PRN PRN Reason: Pain, Moderate (4-6) Last Admin: 09/09/21 08:25 Dose: 1 tab Valproic Acid (Valproic Acid 250 Mg/5 Ml Oral Liqd) 125 mg PO BID [facility] Last Admin: 09/12/21 22:58 Dose: 125 mg Ziprasidone (Ziprasidone Mesylate 20 Mg Vial) 20 mg IM Q4H PRN PRN Reason: Agitation Last Admin: 09/08/21 08:28 Dose: 20 mg Results - Results Labs/Vitals: Laboratory Last Values WBC 3.5 K/mm3 (4.5-11.0) L 09/01/21 11:27 RBC 3.33 M/mm3 (3.65-5.03) L 09/01/21 11:27 Hgb 8.1 gm/dl (11.8-15.2) L 09/01/21 11:27 Hct 27.2 % (35.5-45.6) L 09/01/21 11:27 MCV 82 fl (84-94) L 09/01/21 11:27 MCH 24 pg (28-32) L 09/01/21 11:27 MCHC 30 % (32-34) L 09/01/21 11:27 RDW 18.9 % (13.2-15.2) H 09/01/21 11:27 Plt Count 350 K/mm3 (140-440) 09/01/21 11:27 [place] % (Auto) Production Sanitizer 09/01/21 11:27 Add Manual Diff Complete 09/01/21 11: Total Counted 100 09/01/21 11:27 Seg Neuts % (Manual) 65.0 % (40.0-70.0) 09/01/21 11: Band Neutrophils % 1.0 % 09/01/21 11:27 Lymphocytes % (Manual) 15.0 % (13.4-35.0) 09/01/21 11:27 Reactive Lymphs % (Man) 1.0 % 09/01/21 11:27 Monocytes % (Manual) 17.0 % (0.0-7.3) H 09/01/21 11:27 Eosinophils % (Manual) 0 % (0.0-4.3) 09/01/21 11:27 Basophils % (Manual) 0 % (0.0-1.8) 09/01/21 11: Metamyelocytes % 1.0 % 09/01/21 11: Myelocytes % 0 % 09/01/21 11: Promyelocytes % 0 % 09/01/21 11: Blast Cells % 0 % 09/01/21 11: Nucleated RBC % Not Reportable 09/01/21 11: Seg Neutrophils # Man 2.3 K/mm3 (1.8-7.7) 09/01/21 11: Band Neutrophils # 0.0 K/mm3 09/01/21 11: Lymphocytes # (Manual) 0.5 K/mm3 (1.2-5.4) L 09/01/21 11:27 Abs React Lymphs (Man) 0.0 K/mm3 09/01/21 11: Monocytes # (Manual) 0.6 K/mm3 (0.0-0.8) 09/01/21 11: Eosinophils # (Manual) 0.0 K/mm3 (0.0-0.4) 09/01/21 11: Basophils # (Manual) 0.0 K/mm3 (0.0-0.1) 09/01/21 11: Metamyelocytes # 0.0 K/mm3 09/01/21 11:27 Myelocytes # 0.0 K/mm3 09/01/21 11: Promyelocytes # 0.0 K/mm3 09/01/21 11: Blast Cells # 0.0 K/mm3 09/01/21 11:27 WBC Morphology Not Reportable 09/01/21 11:27 Hypersegmented Neuts Not Reportable 09/01/21 11:27 Hyposegmented Neuts Not Reportable 09/01/21 11:27 Hypogranular Neuts Not Reportable 09/01/21 11:27 Smudge Cells Not Reportable 09/01/21 11:27 Toxic Granulation Not Reportable 09/01/21 11:27 Toxic Vacuolation Not Reportable 09/01/21 11:27 Dohle Bodies Not Reportable 09/01/21 11:27 Pelger-Huet Anomaly Not Reportable 09/01/21 11:27 Jeannine Rods Not Reportable 09/01/21 11:27 Platelet Estimate Consistent w auto 09/01/21 11:27 Clumped Platelets Not Reportable 09/01/21 11:27 Plt Clumps, EDTA Not Reportable 09/01/21 11:27 Large Platelets Few 09/01/21 11:27 Giant Platelets Not Reportable 09/01/21 11:27 Platelet Satelliting Not Reportable 09/01/21 11:27 Plt Morphology Comment Not Reportable 09/01/21 11:27 RBC Morphology Not Reportable 09/01/21 11:27 Dimorphic RBCs Not Reportable 09/01/21 11:27 Polychromasia Not Reportable 09/01/21 11:27 Hypochromasia 2+ 09/01/21 11:27 Poikilocytosis Not Reportable 09/01/21 11:27 Anisocytosis 1+ 09/01/21 11:27 Microcytosis Not Reportable 09/01/21 11:27 Macrocytosis Not Reportable 09/01/21 11:27 Spherocytes Not Reportable 09/01/21 11:27 Pappenheimer Bodies Not Reportable 09/01/21 11:27 Sickle Cells Not Reportable 09/01/21 11:27 Target Cells Not Reportable 09/01/21 11:27 Tear Drop Cells Not Reportable 09/01/21 11:27 Ovalocytes Not Reportable 09/01/21 11:27 Helmet Cells Not Reportable 09/01/21 11:27 [place] Bodies Not Reportable 09/01/21 11:27 [place] Rings Not Reportable 09/01/21 11:27 [place] Cells Not Reportable 09/01/21 11:27 Bite Cells Not Reportable 09/01/21 11:27 Crenated Cell Not Reportable 09/01/21 11:27 Elliptocytes Not Reportable 09/01/21 11:27 Acanthocytes (Spur) Not Reportable 09/01/21 11:27 Rouleaux Not Reportable 09/01/21 11:27 Hemoglobin C Crystals Not Reportable 09/01/21 11:27 Schistocytes Not Reportable 09/01/21 11:27 Malaria parasites Not Reportable 09/01/21 11:27 [place] Bodies Not Reportable 09/01/21 11:27 Hem Pathologist Commnt No 09/01/21 11:27 Sodium 139 mmol/L (137-145) 09/01/21 11:27 Potassium 3.4 mmol/L (3.6-5.0) L 09/01/21 11:27 Chloride 102.3 mmol/L (98-107) 09/01/21 11:27 Carbon Dioxide 24 mmol/L (22-30) 09/01/21 11:27 Anion Gap 16 mmol/L 09/01/21 11:27 BUN 21 mg/dL (9-20) H 09/01/21 11:27 Creatinine 1.4 mg/dL (0.8-1.3) H 09/01/21 11:27 Estimated GFR 49 ml/min 09/01/21 11:27 BUN/Creatinine Ratio 15 % 09/01/21 11:27 Glucose 139 mg/dL (75-100) H 09/01/21 11:27 Hemoglobin A1c < 4.0 % (4-6) L 09/01/21 11:27 Calcium 8.2 mg/dL (8.4-10.2) L 09/01/21 11:27 Total Bilirubin 1.30 mg/dL (0.1-1.2) H 09/01/21 11:27 AST 46 units/L (5-40) H 09/01/21 11:27 ALT 17 units/L (7-56) 09/01/21 11:27 Alkaline Phosphatase 41 units/L (35-129) 09/01/21 11:27 Total Protein 6.2 g/dL (6.3-8.2) L 09/01/21 11:27 Albumin 3.2 g/dL (3.9-5) L 09/01/21 11:27 Albumin/Globulin Ratio 1.1 % 09/01/21 11:27 Triglycerides 97 mg/dL (2-149) 09/01/21 11: Cholesterol 110 mg/dL (50-199) 09/01/21 11: LDL Cholesterol Direct 58 mg/dL (50-130) 09/01/21 11: HDL Cholesterol 30 mg/dL (40-59) L 09/01/21 11: Cholesterol/HDL Ratio 3.66 % 09/01/21 11:27 TSH 2.720 mlU/mL (0.270-4.200) 09/01/21 11:27 Last Vital Signs Temp 98.4 F 09/12/21 20:12 Pulse 86 09/12/21 20:12 Resp 17 09/12/21 20:12 BP 134/74 09/12/21 20:12 Pulse Ox 94 09/12/21 20:12
[2021-09-13] MEDS: VALPROIC ACID 250 MG/5 ML ORAL LIQD PO SCH ×2 (10:31→21:19)
[2021-09-13] MEDS: HALOPERIDOL 2 MG TAB PO SCH ×2 (10:32→21:20)
[2021-09-13] MEDS: FOLIC ACID 1 MG TAB PO SCH (10:32)
[2021-09-13] MEDS: FERROUS SULFATE 325 MG TAB PO SCH ×3 (10:32→20:07)
[2021-09-13] MEDS: ESCITALOPRAM 10 MG TAB PO SCH (10:33)
[2021-09-14] MEDS: ACETAMINOPHEN 325 MG TAB PO SCH ×6 (02:01→21:48)
[2021-09-14] MEDS: LORazepam 1 MG TAB PO PRN ×2 (09:06→14:26)
[2021-09-14] MEDS: ONDANSETRON 4 MG ODT TAB PO PRN (09:06)
[2021-09-14] MEDS: ESCITALOPRAM 10 MG TAB PO SCH (09:06)
[2021-09-14] MEDS: FERROUS SULFATE 325 MG TAB PO SCH ×3 (09:06→20:55)
[2021-09-14] MEDS: VALPROIC ACID 250 MG/5 ML ORAL LIQD PO SCH ×2 (09:08→21:48)
[2021-09-14] MEDS: HALOPERIDOL 2 MG TAB PO SCH ×2 (09:08→21:48)
[2021-09-14] MEDS: FOLIC ACID 1 MG TAB PO SCH (09:08)
--- NOTE | 2021-09-14 09:34 | Progress Note ---
Subjective Date of service: 09/14/21 Principal diagnosis: Dementia with behavioral disturbances Subjective Comment: 09/14:The patient was see this morning. He states mood as " terrible, the same old stuff." He reports sleep and appetite as ok. The patient denies SI/HI/ AVHs. No changes made today. 09/13: The patient was see this morning. He states he is doing well " I'm not a super man, I feel tired." He denies depression " 0 this morning." The patient denies SI/HI. No changes made today. 09/12:The patient was seen at breakfast. He reports sleep as fair. He states he is not doing well; states mood as slow and tired. The patient denies SI/HI. No changes made today. 09/11:The patient was seen today. He is lying in bed awake. He is calm and cooperative. His thoughts are more organized. He says he doesn't feel too well. The patient says "I feel weak." When asking if he slept good, he replies "I don't ever sleep good." The patient says he is depressed. He says "I don't have anyone." I told him his had called and checked on him. He says "no she didn't. I don't have a ." The patient denies SI/HI. He says "no, I don't want to ." Will start Lexapro for depression. 09/10 The patient was seen today. He is calm and cooperative, but confused. He says he's sick to his stomach. His breakfast tray is in front of him. The patient says he slept okay. He denies SI/HI. Start Zofran ODT q8h for N/V. 09/09 The patient was seen today. He is sitting in the dayroom eating breakfast. He is much more calm today. He is confused, but not speaking as nonsensically today. He says he's hurting in his leg. He says he slept okay. 09/08 The patient was seen today. He is confused. He is irritable. He says "I'm up starting to cook breakfast but they wont let me do what I want to do." The patient has the tech at bedside with him because staff says he is trying to get out of bed, very confused, unsteady gait and talking nonsensically. The nurse medicated the patient with Chris marrufo. Will start Valproic acid 125mg po BID to help stabilize mood. 09/07 The patient was seen today. He is confused, but pleasant. He is talking about "some white stuff that's on the floor." 09/06 The patient was seen today. He is confused. He is lying in bed. He is delusional. He says "they gone kill me." He says "the window is falling on me. I'm just gone stay out of the way." 09/05 The patient was seen today. He is confused. He is lying in bed staring straight ahead. I have to nudge him to get him to respond. He then looks at me and then turns his head back straight ahead. I nudge the patient and again and asks if he's okay and why isn't he talking. He politely grabs my hand and says good morning. He says "I just got back from a ." The patient will be placed with hospice upon discharge. 09/04:The patient was seen at breakfast today. He continues to endorse depression. He denies any current suicidal/homicidal ideation and denies hallucinations. No aggressive behavior reported. No changes made today. 09/03:The patient was seen this morning. He continues to endorse depression. He denies any current suicidal/homicidal ideation and denies hallucinations. No aggressive behavior reported. No changes made today. 09/02:The patient was seen this morning. He is alert and oriented to self. He reports doing well. He denies any current suicidal/homicidal ideation and denies hallucinations. No aggressive behavior reported. 09/01:The patient was seen this morning. The patient states " I'm just here." He endorses depression rating as 7-8/10. He denies any current suicidal/homicidal ideation and denies hallucinations. 08/31: The patient was seen this morning. The patient is resting quietly in bed. Per nurse, he had an uneventful night. 08/30: The patient was seen this morning. He is calm. He continues to be confused. Unable to assess SI/HI/ AVH due to current mentation. Start Haldol 2mg IM BID. REVIEW OF SYSTEMS Unable to obtain MENTAL STATUS EXAMINATION Unable to obtain Diagnoses: Delusional Disorder Treatment Plan Patient admitted for inpatient psychiatric evaluation, medication adjustment and close monitoring The patient's behavior, mood, sleep and appetite will be closely monitored. Patient enrolled in individual and group therapeutic sessions and encouraged to attend. Patient provided with a safe and structured environment. Patient's physical health needs will be addressed by the Hospitalist. Hospitalist Consulted Labs including CBC, CMP, Lipid profile and Hemoglobin A1C levels ordered for baseline reference Social Assessment will be completed and the Grainer Machine will work with patient and family to ensure a suitable and safe disposition Medication adjustment will be made as clinically indicated Lexapro 5mg po daily Usual Wellness Orthodoxy/Preservation: - Start Trazodone 50 mg po QHS & 50 mg po QHS PRN between 10 PM & 2 AM for insomnia - Start Melatonin 5 mg po QHS to promote circadian rhythm The patient agreed on the treatment plan, understood the risk, benefit, alternative treatment, potential consequence of no treatment, and gave informed consent. Estimated days: 2 Post hospital care: primary care provider, psychiatric provider Case staffed with Dr. Herndon Medications and Allergies Medications and Allergies Allergies Allergy/AdvReac Type Severity Reaction Status Date / Time No Known Allergies Allergy Verified 08/28/21 22:01 Home Medications Medication Instructions Recorded Confirmed Last Taken Type ALPRAZolam [Xanax TAB] 2 mg PO TID 08/27/21 08/27/21 Unknown History Acetaminophen [Aphen] 650 mg PO Q4HR 08/27/21 08/27/21 Unknown History Docusate Sodium [Colace CAP] 100 mg PO PRN 08/27/21 08/27/21 Unknown History Ferrous Sulfate [Feosol] 325 mg PO TID 08/27/21 08/27/21 Unknown History Folic Acid 1 mg PO DAILY 08/27/21 08/27/21 Unknown History Oxycodone HCl/Acetaminophen 1 tab PO Q6HR PRN 08/27/21 08/27/21 Unknown History [Percocet 10/325 mg] Active Meds: Active Medications Acetaminophen (Acetaminophen 325 Mg Tab) 650 mg PO Q4HR ZULMA Last Admin: 09/14/21 09:07 Dose: 650 mg Docusate Sodium (Docusate Sodium 100 Mg Cap) 100 mg PO PRN [facility] Escitalopram Oxalate (Escitalopram 10 Mg Tab) 5 mg PO QDAY [facility] Last Admin: 09/14/21 09:06 Dose: 5 mg Ferrous Sulfate (Ferrous Sulfate 325 Mg Tab) 325 mg PO TID [facility] Last Admin: 09/14/21 09:06 Dose: 325 mg Folic Acid (Folic Acid 1 Mg Tab) 1 mg PO DAILY [facility] Last Admin: 09/14/21 09:08 Dose: 1 mg Haloperidol (Haloperidol 2 Mg Tab) 2 mg PO BID [facility] Last Admin: 09/14/21 09:08 Dose: 2 mg Lorazepam (Lorazepam 1 Mg Tab) 1 mg PO Q6H PRN PRN Reason: Anxiety Last Admin: 09/14/21 09:06 Dose: 1 mg Ondansetron HCl (Ondansetron 4 Mg Odt Tab) 4 mg PO Q8H PRN PRN Reason: Nausea And Vomiting Last Admin: 09/14/21 09:06 Dose: 4 mg Oxycodone/Acetaminophen (Oxycodone /Acetaminophen 5-325mg Tab) 1 tab PO Q6H PRN PRN Reason: Pain, Moderate (4-6) Last Admin: 09/09/21 08:25 Dose: 1 tab Valproic Acid (Valproic Acid 250 Mg/5 Ml Oral Liqd) 125 mg PO BID [facility] Last Admin: 09/14/21 09:08 Dose: 125 mg Ziprasidone (Ziprasidone Mesylate 20 Mg Vial) 20 mg IM Q4H PRN PRN Reason: Agitation Last Admin: 09/08/21 08:28 Dose: 20 mg Results - Results Labs/Vitals: Laboratory Last Values WBC 3.5 K/mm3 (4.5-11.0) L 09/01/21 11:27 RBC 3.33 M/mm3 (3.65-5.03) L 09/01/21 11:27 Hgb 8.1 gm/dl (11.8-15.2) L 09/01/21 11:27 Hct 27.2 % (35.5-45.6) L 09/01/21 11:27 MCV 82 fl (84-94) L 09/01/21 11:27 MCH 24 pg (28-32) L 09/01/21 11:27 MCHC 30 % (32-34) L 09/01/21 11:27 RDW 18.9 % (13.2-15.2) H 09/01/21 11:27 Plt Count 350 K/mm3 (140-440) 09/01/21 11:27 [place] % (Auto) Hardware Assembler 09/01/21 11: Add Manual Diff Complete 09/01/21 11: Total Counted 100 09/01/21 11:27 Seg Neuts % (Manual) 65.0 % (40.0-70.0) 09/01/21 11: Band Neutrophils % 1.0 % 09/01/21 11: Lymphocytes % (Manual) 15.0 % (13.4-35.0) 09/01/21 11:27 Reactive Lymphs % (Man) 1.0 % 09/01/21 11: Monocytes % (Manual) 17.0 % (0.0-7.3) H 09/01/21 11: Eosinophils % (Manual) 0 % (0.0-4.3) 09/01/21 11: Basophils % (Manual) 0 % (0.0-1.8) 09/01/21 11: Metamyelocytes % 1.0 % 09/01/21 11:27 Myelocytes % 0 % 09/01/21 11:27 Promyelocytes % 0 % 09/01/21 11: Blast Cells % 0 % 09/01/21 11: Nucleated RBC % Not Reportable 09/01/21 11: Seg Neutrophils # Man 2.3 K/mm3 (1.8-7.7) 09/01/21 11: Band Neutrophils # 0.0 K/mm3 09/01/21 11: Lymphocytes # (Manual) 0.5 K/mm3 (1.2-5.4) L 09/01/21 11:27 Abs React Lymphs (Man) 0.0 K/mm3 09/01/21 11: Monocytes # (Manual) 0.6 K/mm3 (0.0-0.8) 09/01/21 11: Eosinophils # (Manual) 0.0 K/mm3 (0.0-0.4) 09/01/21 11: Basophils # (Manual) 0.0 K/mm3 (0.0-0.1) 09/01/21 11: Metamyelocytes # 0.0 K/mm3 09/01/21 11:27 Myelocytes # 0.0 K/mm3 09/01/21 11:27 Promyelocytes # 0.0 K/mm3 09/01/21 11:27 Blast Cells # 0.0 K/mm3 09/01/21 11:27 WBC Morphology Not Reportable 09/01/21 11:27 Hypersegmented Neuts Not Reportable 09/01/21 11:27 Hyposegmented Neuts Not Reportable 09/01/21 11:27 Hypogranular Neuts Not Reportable 09/01/21 11:27 Smudge Cells Not Reportable 09/01/21 11:27 Toxic Granulation Not Reportable 09/01/21 11:27 Toxic Vacuolation Not Reportable 09/01/21 11:27 Dohle Bodies Not Reportable 09/01/21 11:27 Pelger-Huet Anomaly Not Reportable 09/01/21 11:27 Jeannine Rods Not Reportable 09/01/21 11:27 Platelet Estimate Consistent w auto 09/01/21 11:27 Clumped Platelets Not Reportable 09/01/21 11:27 Plt Clumps, EDTA Not Reportable 09/01/21 11:27 Large Platelets Few 09/01/21 11:27 Giant Platelets Not Reportable 09/01/21 11:27 Platelet Satelliting Not Reportable 09/01/21 11:27 Plt Morphology Comment Not Reportable 09/01/21 11:27 RBC Morphology Not Reportable 09/01/21 11:27 Dimorphic RBCs Not Reportable 09/01/21 11:27 Polychromasia Not Reportable 09/01/21 11:27 Hypochromasia 2+ 09/01/21 11:27 Poikilocytosis Not Reportable 09/01/21 11:27 Anisocytosis 1+ 09/01/21 11:27 Microcytosis Not Reportable 09/01/21 11:27 Macrocytosis Not Reportable 09/01/21 11:27 Spherocytes Not Reportable 09/01/21 11:27 Pappenheimer Bodies Not Reportable 09/01/21 11:27 Sickle Cells Not Reportable 09/01/21 11:27 Target Cells Not Reportable 09/01/21 11:27 Tear Drop Cells Not Reportable 09/01/21 11:27 Ovalocytes Not Reportable 09/01/21 11:27 Helmet Cells Not Reportable 09/01/21 11:27 [place] Bodies Not Reportable 09/01/21 11:27 [place] Rings Not Reportable 09/01/21 11:27 [place] Cells Not Reportable 09/01/21 11:27 Bite Cells Not Reportable 09/01/21 11:27 Crenated Cell Not Reportable 09/01/21 11:27 Elliptocytes Not Reportable 09/01/21 11:27 Acanthocytes (Spur) Not Reportable 09/01/21 11:27 Rouleaux Not Reportable 09/01/21 11:27 Hemoglobin C Crystals Not Reportable 09/01/21 11:27 Schistocytes Not Reportable 09/01/21 11:27 Malaria parasites Not Reportable 09/01/21 11:27 Oliverio Bodies Not Reportable 09/01/21 11:27 Hem Pathologist Commnt No 09/01/21 11:27 Sodium 139 mmol/L (137-145) 09/01/21 11:27 Potassium 3.4 mmol/L (3.6-5.0) L 09/01/21 11:27 Chloride 102.3 mmol/L (98-107) 09/01/21 11:27 Carbon Dioxide 24 mmol/L (22-30) 09/01/21 11:27 Anion Gap 16 mmol/L 09/01/21 11:27 BUN 21 mg/dL (9-20) H 09/01/21 11:27 Creatinine 1.4 mg/dL (0.8-1.3) H 09/01/21 11:27 Estimated GFR 49 ml/min 09/01/21 11:27 BUN/Creatinine Ratio 15 % 09/01/21 11:27 Glucose 139 mg/dL (75-100) H 09/01/21 11:27 Hemoglobin A1c < 4.0 % (4-6) L 09/01/21 11:27 Calcium 8.2 mg/dL (8.4-10.2) L 09/01/21 11:27 Total Bilirubin 1.30 mg/dL (0.1-1.2) H 09/01/21 11:27 AST 46 units/L (5-40) H 09/01/21 11:27 ALT 17 units/L (7-56) 09/01/21 11:27 Alkaline Phosphatase 41 units/L (35-129) 09/01/21 11:27 Total Protein 6.2 g/dL (6.3-8.2) L 09/01/21 11:27 Albumin 3.2 g/dL (3.9-5) L 09/01/21 11:27 Albumin/Globulin Ratio 1.1 % 09/01/21 11:27 Triglycerides 97 mg/dL (2-149) 09/01/21 11:27 Cholesterol 110 mg/dL (50-199) 09/01/21 11:27 LDL Cholesterol Direct 58 mg/dL (50-130) 09/01/21 11: HDL Cholesterol 30 mg/dL (40-59) L 09/01/21 11:27 Cholesterol/HDL Ratio 3.66 % 09/01/21 11:27 TSH 2.720 mlU/mL (0.270-4.200) 09/01/21 11:27 Last Vital Signs Temp 98.2 F 09/13/21 19:36 Pulse 85 09/13/21 19:36 Resp 16 09/13/21 19:36 BP 154/77 09/13/21 19:36 Pulse Ox 96 09/13/21 19:36
[2021-09-14] MEDS: oxyCODONE /ACETAMINOPHEN 5-325MG TAB PO PRN (12:06)
--- NOTE | 2021-09-14 19:01 | Progress Note ---
Assessment and Plan - Patient Problems (1) Vascular dementia with behavioral disturbance Current Visit: Yes Status: Acute Plan to address problem: Verbal prompting, verbal redirection, benzodiazepine therapy as clinically indicated. (2) Cerebral atherosclerosis Current Visit: Yes Status: Acute Plan to address problem: Risk factor reduction, antiplatelet therapy as clinically indicated, supportive care. (3) Encephalopathy Current Visit: Yes Status: Acute Plan to address problem: Supportive care, verbal redirection. Chronic in nature. (4) Generalized anxiety disorder Current Visit: Yes Status: Acute Plan to address problem: Benzodiazepine therapy as clinically indicated, continue medical management. (5) Malnutrition Current Visit: Yes Status: Acute Qualifiers: Protein-calorie malnutrition severity: moderate Plan to address problem: Dietary supplementation, increase protein intake. (6) Advance care planning Current Visit: Yes Status: Acute Plan to address problem: Disease education data, care plan discussed, diagnoses discussed, prognosis discussed. Patient is DNR as per request. Patient currently admitted to hospice care. +30 minutes. History Interval history: 76 YO Male with Vascular Dementia with Behavioral Disturbance, Cerebral Atherosclerosis, Encephalopathy, SANTA who is currently on Hospice Care. Pt is AND/DNR as per family request(). Pt is admitted to [facility] for psychiatric stabilization. Consult placed by Dr. Simmons for medical management. Patient seen and evaluated in the recreation room. Patient remains comfortable. Patient exhibits tangential thinking with diminished cognition. No reported Nursing events. Hospitalist Physical - Constitutional Vitals: Temp Pulse Resp BP Pulse Ox 97.7 F 88 18 123/67 97 09/14/21 08:47 09/14/21 08:47 09/14/21 12:06 09/14/21 08:47 09/14/21 08:47 General appearance: Present: no acute distress, well-nourished - EENT Eyes: Present: PERRL ENT: hearing decreased - Neck Neck: Present: supple - Respiratory Respiratory effort: normal Respiratory: bilateral: CTA - Cardiovascular Rhythm: regular Heart Sounds: Present: S1 & S2 - Extremities Extremities: no ischemia Peripheral Pulses: within normal limits - Abdominal General gastrointestinal: soft, non-tender, non-distended - Integumentary Integumentary: Present: clear - Psychiatric Psychiatric: cooperative - Neurologic Neurologic: CNII-XII intact Results - Labs CBC & Chem 7: 09/01/21 11:27 09/01/21 11:27 Labs: Laboratory Last Values WBC 3.5 K/mm3 (4.5-11.0) L 09/01/21 11: RBC 3.33 M/mm3 (3.65-5.03) L 09/01/21 11:27 Hgb 8.1 gm/dl (11.8-15.2) L 09/01/21 11: Hct 27.2 % (35.5-45.6) L 09/01/21 11: MCV 82 fl (84-94) L 09/01/21 11: MCH 24 pg (28-32) L 09/01/21 11:27 MCHC 30 % (32-34) L 09/01/21 11: RDW 18.9 % (13.2-15.2) H 09/01/21 11: Plt Count 350 K/mm3 (140-440) 09/01/21 11:27 [place] % (Auto) Customer Acquisition Specialist 09/01/21 11:27 Add Manual Diff Complete 09/01/21 11:27 Total Counted 100 09/01/21 11:27 Seg Neuts % (Manual) 65.0 % (40.0-70.0) 09/01/21 11: Band Neutrophils % 1.0 % 09/01/21 11:27 Lymphocytes % (Manual) 15.0 % (13.4-35.0) 09/01/21 11:27 Reactive Lymphs % (Man) 1.0 % 09/01/21 11: Monocytes % (Manual) 17.0 % (0.0-7.3) H 09/01/21 11:27 Eosinophils % (Manual) 0 % (0.0-4.3) 09/01/21 11:27 Basophils % (Manual) 0 % (0.0-1.8) 09/01/21 11:27 Metamyelocytes % 1.0 % 09/01/21 11:27 Myelocytes % 0 % 09/01/21 11:27 Promyelocytes % 0 % 09/01/21 11:27 Blast Cells % 0 % 09/01/21 11:27 Nucleated RBC % Not Reportable 09/01/21 11: Seg Neutrophils # Man 2.3 K/mm3 (1.8-7.7) 09/01/21 11:27 Band Neutrophils # 0.0 K/mm3 09/01/21 11:27 Lymphocytes # (Manual) 0.5 K/mm3 (1.2-5.4) L 09/01/21 11:27 Abs React Lymphs (Man) 0.0 K/mm3 09/01/21 11:27 Monocytes # (Manual) 0.6 K/mm3 (0.0-0.8) 09/01/21 11:27 Eosinophils # (Manual) 0.0 K/mm3 (0.0-0.4) 09/01/21 11:27 Basophils # (Manual) 0.0 K/mm3 (0.0-0.1) 09/01/21 11:27 Metamyelocytes # 0.0 K/mm3 09/01/21 11: Myelocytes # 0.0 K/mm3 09/01/21 11:27 Promyelocytes # 0.0 K/mm3 09/01/21 11:27 Blast Cells # 0.0 K/mm3 09/01/21 11:27 WBC Morphology Not Reportable 09/01/21 11:27 Hypersegmented Neuts Not Reportable 09/01/21 11:27 Hyposegmented Neuts Not Reportable 09/01/21 11:27 Hypogranular Neuts Not Reportable 09/01/21 11:27 Smudge Cells Not Reportable 09/01/21 11:27 Toxic Granulation Not Reportable 09/01/21 11:27 Toxic Vacuolation Not Reportable 09/01/21 11:27 Dohle Bodies Not Reportable 09/01/21 11:27 Pelger-Huet Anomaly Not Reportable 09/01/21 11:27 Jeannine Rods Not Reportable 09/01/21 11:27 Platelet Estimate Consistent w auto 09/01/21 11:27 Clumped Platelets Not Reportable 09/01/21 11:27 Plt Clumps, EDTA Not Reportable 09/01/21 11:27 Large Platelets Few 09/01/21 11:27 Giant Platelets Not Reportable 09/01/21 11:27 Platelet Satelliting Not Reportable 09/01/21 11:27 Plt Morphology Comment Not Reportable 09/01/21 11:27 RBC Morphology Not Reportable 09/01/21 11:27 Dimorphic RBCs Not Reportable 09/01/21 11:27 Polychromasia Not Reportable 09/01/21 11:27 Hypochromasia 2+ 09/01/21 11:27 Poikilocytosis Not Reportable 09/01/21 11:27 Anisocytosis 1+ 09/01/21 11:27 Microcytosis Not Reportable 09/01/21 11:27 Macrocytosis Not Reportable 09/01/21 11:27 Spherocytes Not Reportable 09/01/21 11:27 Pappenheimer Bodies Not Reportable 09/01/21 11:27 Sickle Cells Not Reportable 09/01/21 11:27 Target Cells Not Reportable 09/01/21 11:27 Tear Drop Cells Not Reportable 09/01/21 11:27 Ovalocytes Not Reportable 09/01/21 11:27 Helmet Cells Not Reportable 09/01/21 11:27 [place] Bodies Not Reportable 09/01/21 11:27 [place] Rings Not Reportable 09/01/21 11:27 [place] Cells Not Reportable 09/01/21 11:27 Bite Cells Not Reportable 09/01/21 11:27 Crenated Cell Not Reportable 09/01/21 11:27 Elliptocytes Not Reportable 09/01/21 11:27 Acanthocytes (Spur) Not Reportable 09/01/21 11:27 Rouleaux Not Reportable 09/01/21 11:27 Hemoglobin C Crystals Not Reportable 09/01/21 11:27 Schistocytes Not Reportable 09/01/21 11:27 Malaria parasites Not Reportable 09/01/21 11:27 Oliverio Bodies Not Reportable 09/01/21 11:27 Hem Pathologist Commnt No 09/01/21 11:27 Sodium 139 mmol/L (137-145) 09/01/21 11:27 Potassium 3.4 mmol/L (3.6-5.0) L 09/01/21 11:27 Chloride 102.3 mmol/L (98-107) 09/01/21 11:27 Carbon Dioxide 24 mmol/L (22-30) 09/01/21 11:27 Anion Gap 16 mmol/L 09/01/21 11:27 BUN 21 mg/dL (9-20) H 09/01/21 11:27 Creatinine 1.4 mg/dL (0.8-1.3) H 09/01/21 11:27 Estimated GFR 49 ml/min 09/01/21 11:27 BUN/Creatinine Ratio 15 % 09/01/21 11:27 Glucose 139 mg/dL (75-100) H 09/01/21 11:27 Hemoglobin A1c < 4.0 % (4-6) L 09/01/21 11:27 Calcium 8.2 mg/dL (8.4-10.2) L 09/01/21 11:27 Total Bilirubin 1.30 mg/dL (0.1-1.2) H 09/01/21 11:27 AST 46 units/L (5-40) H 09/01/21 11:27 ALT 17 units/L (7-56) 09/01/21 11:27 Alkaline Phosphatase 41 units/L (35-129) 09/01/21 11:27 Total Protein 6.2 g/dL (6.3-8.2) L 09/01/21 11:27 Albumin 3.2 g/dL (3.9-5) L 09/01/21 11:27 Albumin/Globulin Ratio 1.1 % 09/01/21 11:27 Triglycerides 97 mg/dL (2-149) 09/01/21 11:27 Cholesterol 110 mg/dL (50-199) 09/01/21 11:27 LDL Cholesterol Direct 58 mg/dL (50-130) 09/01/21 11:27 HDL Cholesterol 30 mg/dL (40-59) L 09/01/21 11:27 Cholesterol/HDL Ratio 3.66 % 09/01/21 11:27 TSH 2.720 mlU/mL (0.270-4.200) 09/01/21 11:27 Tejeda/IV: Voiding Method Toilet Active Medications - Current Medications Current Medications: Generic Name Dose Route Start Last Admin Trade Name Freq PRN Reason Stop Dose Admin Acetaminophen 650 mg 08/29/21 10:00 09/14/21 17:15 Acetaminophen 325 Mg Tab PO 650 mg Q4HR ZULMA Administration Docusate Sodium 100 mg 08/29/21 09:00 Docusate Sodium 100 Mg Cap PO PRN [facility]ULMA Escitalopram Oxalate 5 mg 09/11/21 10:00 09/14/21 09:06 Escitalopram 10 Mg Tab PO 5 mg QDAY ZULMA Administration Ferrous Sulfate 325 mg 08/29/21 14:00 09/14/21 14:25 Ferrous Sulfate 325 Mg Tab PO 325 mg TID ZULMA Administration Folic Acid 1 mg 08/29/21 10:00 09/14/21 09:08 Folic Acid 1 Mg Tab PO 1 mg DAILY ZULMA Administration Haloperidol 2 mg 09/02/21 10:00 09/14/21 09:08 Haloperidol 2 Mg Tab PO 2 mg BID ZULMA Administration Lorazepam 1 mg 08/28/21 13:10 09/14/21 14:26 Lorazepam 1 Mg Tab PO 1 mg Q6H PRN Administration Anxiety Ondansetron HCl 4 mg 09/10/21 11:00 09/14/21 09:06 Ondansetron 4 Mg Odt Tab PO 4 mg Q8H PRN Administration Nausea And Vomiting Oxycodone/Acetaminophen 1 tab 08/29/21 09:00 09/14/21 12:06 Oxycodone /Acetaminophen 5-325mg Tab PO 1 tab Q6H PRN Administration Pain, Moderate (4-6) Valproic Acid 125 mg 09/08/21 22:00 09/14/21 09:08 Valproic Acid 250 Mg/5 Ml Oral Liqd PO 125 mg BID ZULMA Administration Ziprasidone 20 mg 08/29/21 10:30 09/08/21 08:28 Ziprasidone Mesylate 20 Mg Vial IM 20 mg Q4H PRN Administration Agitation Nutrition/Malnutrition Assess - Dietary Evaluation Nutrition/Malnutrition Findings: Nutrition Notes Start: 09/04/21 18:25 Freq: Status: Active Protocol: Document 09/04/21 18:25 REJI (Rec: 09/04/21 18:35 REJI [id number]) Nutrition Notes Need for Assessment generated from: LOS Initial or Follow up Assessment Current Diagnosis Malnutrition Other Pertinent Diagnosis Vascular Dementia w/Behavioral Disturbance, Encephalopathy, Anxiety... Current Diet Pureed Diet (since B 08/31). Labs/Tests 09/04: K 3.4, BUN 21, Crea 1.4 , Glu 139, Ca 8.2, HbA1c <4.0. Pertinent Medications 09/04: Folic Acid, others nutritionally unremarkable. Height 5 ft 8.9 in Weight 68 kg [place] Body Weight (kg) 72.45 BMI 22.1 Intake Prior to Admission Good Weight change and time frame Pt states being unsure if loss body weight [employer] SP[employer]LE. Weight Status Appropriate Subjective/Other Information RD consult for LOS assessment. Pt's PO intake of meals has been Good (75-100%), according to ADL notes. Pt is on Room Air, O2 saturation @ 98%, according to Vital Signs notes. Pt will return to his Hospice Care Facility after discharge, according to Progress notes.. Pt is on DNR/DNI status as per family request, according to Progress notes. Percent of energy/protein needs met: Prescribed Pureed Diet provides for energy/protein needs (1,804 Kcal/77 g) during LOS. Burn Absent Trauma Absent GI Symptoms None Food Allergy No Skin Integrity/Comment Unspecified bruises. Current % PO Good (75-100%) Minimum of two criteria No #1 Nutrition Diagnosis No nutrition diagnosis at this time Is patient on ventilator? No Is Patient Ambulatory and/or Out of Bed Yes REE-([facility]-ambulatory/OOB) [ [id number] [id number]] Calculation [facility]ations [facility] Additional Notes Protein: 1-1.2 g/Kg ABW; 81-97 g/day. Fluids: 1 ml/Kcal, or as per MD. Nutrition Intervention Change Diet Order: Continue Pureed Diet. Revisit per MD consult or patient Sign Off request: Additional Comments Continue monitoring food tolerance, %PO intake of meals , and BM.
--- NOTE | 2021-09-14 19:02 | Progress Note ---
Assessment and Plan - Patient Problems (1) Vascular dementia with behavioral disturbance Current Visit: Yes Status: Acute Plan to address problem: Verbal prompting, verbal redirection, benzodiazepine therapy as clinically indicated. (2) Cerebral atherosclerosis Current Visit: Yes Status: Acute Plan to address problem: Risk factor reduction, antiplatelet therapy as clinically indicated, supportive care. (3) Encephalopathy Current Visit: Yes Status: Acute Plan to address problem: Supportive care, verbal redirection. Chronic in nature. (4) Generalized anxiety disorder Current Visit: Yes Status: Acute Plan to address problem: Benzodiazepine therapy as clinically indicated, continue medical management. (5) Malnutrition Current Visit: Yes Status: Acute Qualifiers: Protein-calorie malnutrition severity: moderate Plan to address problem: Dietary supplementation, increase protein intake. (6) Advance care planning Current Visit: Yes Status: Acute Plan to address problem: Disease education data, care plan discussed, diagnoses discussed, prognosis discussed. Patient is DNR as per request. Patient currently admitted to hospice care. +30 minutes. History Interval history: 76 YO Male with Vascular Dementia with Behavioral Disturbance, Cerebral Atherosclerosis, Encephalopathy, SANTA who is currently on Hospice Care. Pt is AND/DNR as per family request(). Pt is [facility] to [facility] for psychiatric stabilization. Consult placed by Dr. Simmons for medical management. Patient seen and evaluated in the recreation room. Patient remains comfortable. Patient exhibits tangential thinking with diminished cognition. No reported Nursing events. Hospitalist Physical - Constitutional Vitals: Temp Pulse Resp BP Pulse Ox 97.7 F 88 18 123/67 97 09/14/21 08:47 09/14/21 08:47 09/14/21 12:06 09/14/21 08:47 09/14/21 08:47 General appearance: Present: no acute distress, well-nourished - EENT Eyes: Present: PERRL ENT: hearing intact - Neck Neck: Present: supple - Respiratory Respiratory effort: normal Respiratory: bilateral: CTA - Cardiovascular Rhythm: regular Heart Sounds: Present: S1 & S2 - Extremities Extremities: no ischemia Peripheral Pulses: within normal limits - Abdominal General gastrointestinal: soft, non-tender, non-distended - Integumentary Integumentary: Present: clear, dry - Psychiatric Psychiatric: cooperative - Neurologic Neurologic: CNII-XII intact Results - Labs CBC & Chem 7: 09/01/21 11:27 09/01/21 11:27 Labs: Laboratory Last Values WBC 3.5 K/mm3 (4.5-11.0) L 09/01/21 11: RBC 3.33 M/mm3 (3.65-5.03) L 09/01/21 11:27 Hgb 8.1 gm/dl (11.8-15.2) L 09/01/21 11: Hct 27.2 % (35.5-45.6) L 09/01/21 11: MCV 82 fl (84-94) L 09/01/21 11: MCH 24 pg (28-32) L 09/01/21 11: MCHC 30 % (32-34) L 09/01/21 11: RDW 18.9 % (13.2-15.2) H 09/01/21 11: Plt Count 350 K/mm3 (140-440) 09/01/21 11:27 [place] % (Auto) Sewing Department Supervisor 09/01/21 11:27 Add Manual Diff Complete 09/01/21 11: Total Counted 100 09/01/21 11:27 Seg Neuts % (Manual) 65.0 % (40.0-70.0) 09/01/21 11: Band Neutrophils % 1.0 % 09/01/21 11:27 Lymphocytes % (Manual) 15.0 % (13.4-35.0) 09/01/21 11:27 Reactive Lymphs % (Man) 1.0 % 09/01/21 11: Monocytes % (Manual) 17.0 % (0.0-7.3) H 09/01/21 11:27 Eosinophils % (Manual) 0 % (0.0-4.3) 09/01/21 11:27 Basophils % (Manual) 0 % (0.0-1.8) 09/01/21 11:27 Metamyelocytes % 1.0 % 09/01/21 11:27 Myelocytes % 0 % 09/01/21 11:27 Promyelocytes % 0 % 09/01/21 11:27 Blast Cells % 0 % 09/01/21 11:27 Nucleated RBC % Not Reportable 09/01/21 11: Seg Neutrophils # Man 2.3 K/mm3 (1.8-7.7) 09/01/21 11:27 Band Neutrophils # 0.0 K/mm3 09/01/21 11:27 Lymphocytes # (Manual) 0.5 K/mm3 (1.2-5.4) L 09/01/21 11:27 Abs React Lymphs (Man) 0.0 K/mm3 09/01/21 11:27 Monocytes # (Manual) 0.6 K/mm3 (0.0-0.8) 09/01/21 11:27 Eosinophils # (Manual) 0.0 K/mm3 (0.0-0.4) 09/01/21 11:27 Basophils # (Manual) 0.0 K/mm3 (0.0-0.1) 09/01/21 11:27 Metamyelocytes # 0.0 K/mm3 09/01/21 11: Myelocytes # 0.0 K/mm3 09/01/21 11:27 Promyelocytes # 0.0 K/mm3 09/01/21 11: Blast Cells # 0.0 K/mm3 09/01/21 11:27 WBC Morphology Not Reportable 09/01/21 11:27 Hypersegmented Neuts Not Reportable 09/01/21 11:27 Hyposegmented Neuts Not Reportable 09/01/21 11:27 Hypogranular Neuts Not Reportable 09/01/21 11:27 Smudge Cells Not Reportable 09/01/21 11:27 Toxic Granulation Not Reportable 09/01/21 11:27 Toxic Vacuolation Not Reportable 09/01/21 11:27 Dohle Bodies Not Reportable 09/01/21 11:27 Pelger-Huet Anomaly Not Reportable 09/01/21 11:27 Jeannine Rods Not Reportable 09/01/21 11:27 Platelet Estimate Consistent w auto 09/01/21 11:27 Clumped Platelets Not Reportable 09/01/21 11:27 Plt Clumps, EDTA Not Reportable 09/01/21 11:27 Large Platelets Few 09/01/21 11:27 Giant Platelets Not Reportable 09/01/21 11:27 Platelet Satelliting Not Reportable 09/01/21 11:27 Plt Morphology Comment Not Reportable 09/01/21 11:27 RBC Morphology Not Reportable 09/01/21 11:27 Dimorphic RBCs Not Reportable 09/01/21 11:27 Polychromasia Not Reportable 09/01/21 11:27 Hypochromasia 2+ 09/01/21 11:27 Poikilocytosis Not Reportable 09/01/21 11:27 Anisocytosis 1+ 09/01/21 11:27 Microcytosis Not Reportable 09/01/21 11:27 Macrocytosis Not Reportable 09/01/21 11:27 Spherocytes Not Reportable 09/01/21 11:27 Pappenheimer Bodies Not Reportable 09/01/21 11:27 Sickle Cells Not Reportable 09/01/21 11:27 Target Cells Not Reportable 09/01/21 11:27 Tear Drop Cells Not Reportable 09/01/21 11:27 Ovalocytes Not Reportable 09/01/21 11:27 Helmet Cells Not Reportable 09/01/21 11:27 [place] Bodies Not Reportable 09/01/21 11:27 [place] Rings Not Reportable 09/01/21 11:27 [place] Cells Not Reportable 09/01/21 11:27 Bite Cells Not Reportable 09/01/21 11:27 Crenated Cell Not Reportable 09/01/21 11:27 Elliptocytes Not Reportable 09/01/21 11:27 Acanthocytes (Spur) Not Reportable 09/01/21 11:27 Rouleaux Not Reportable 09/01/21 11:27 Hemoglobin C Crystals Not Reportable 09/01/21 11:27 Schistocytes Not Reportable 09/01/21 11:27 Malaria parasites Not Reportable 09/01/21 11:27 Oliverio Bodies Not Reportable 09/01/21 11:27 Hem Pathologist Commnt No 09/01/21 11:27 Sodium 139 mmol/L (137-145) 09/01/21 11:27 Potassium 3.4 mmol/L (3.6-5.0) L 09/01/21 11:27 Chloride 102.3 mmol/L (98-107) 09/01/21 11:27 Carbon Dioxide 24 mmol/L (22-30) 09/01/21 11:27 Anion Gap 16 mmol/L 09/01/21 11:27 BUN 21 mg/dL (9-20) H 09/01/21 11:27 Creatinine 1.4 mg/dL (0.8-1.3) H 09/01/21 11:27 Estimated GFR 49 ml/min 09/01/21 11:27 BUN/Creatinine Ratio 15 % 09/01/21 11:27 Glucose 139 mg/dL (75-100) H 09/01/21 11:27 Hemoglobin A1c < 4.0 % (4-6) L 09/01/21 11:27 Calcium 8.2 mg/dL (8.4-10.2) L 09/01/21 11:27 Total Bilirubin 1.30 mg/dL (0.1-1.2) H 09/01/21 11:27 AST 46 units/L (5-40) H 09/01/21 11:27 ALT 17 units/L (7-56) 09/01/21 11:27 Alkaline Phosphatase 41 units/L (35-129) 09/01/21 11:27 Total Protein 6.2 g/dL (6.3-8.2) L 09/01/21 11:27 Albumin 3.2 g/dL (3.9-5) L 09/01/21 11:27 Albumin/Globulin Ratio 1.1 % 09/01/21 11:27 Triglycerides 97 mg/dL (2-149) 09/01/21 11:27 Cholesterol 110 mg/dL (50-199) 09/01/21 11:27 LDL Cholesterol Direct 58 mg/dL (50-130) 09/01/21 11:27 HDL Cholesterol 30 mg/dL (40-59) L 09/01/21 11:27 Cholesterol/HDL Ratio 3.66 % 09/01/21 11:27 TSH 2.720 mlU/mL (0.270-4.200) 09/01/21 11:27 Tejeda/IV: Voiding Method Toilet Active Medications - Current Medications Current Medications: Generic Name Dose Route Start Last Admin Trade Name Freq PRN Reason Stop Dose Admin Acetaminophen 650 mg 08/29/21 10:00 09/14/21 17:15 Acetaminophen 325 Mg Tab PO 650 mg Q4HR ZULMA Administration Docusate Sodium 100 mg 08/29/21 09:00 Docusate Sodium 100 Mg Cap PO PRN ZULMA Escitalopram Oxalate 5 mg 09/11/21 10:00 09/14/21 09:06 Escitalopram 10 Mg Tab PO 5 mg QDAY ZULMA Administration Ferrous Sulfate 325 mg 08/29/21 14:00 09/14/21 14:25 Ferrous Sulfate 325 Mg Tab PO 325 mg TID ZULMA Administration Folic Acid 1 mg 08/29/21 10:00 09/14/21 09:08 Folic Acid 1 Mg Tab PO 1 mg DAILY ZULMA Administration Haloperidol 2 mg 09/02/21 10:00 09/14/21 09:08 Haloperidol 2 Mg Tab PO 2 mg BID ZULMA Administration Lorazepam 1 mg 08/28/21 13:10 09/14/21 14:26 Lorazepam 1 Mg Tab PO 1 mg Q6H PRN Administration Anxiety Ondansetron HCl 4 mg 09/10/21 11:00 09/14/21 09:06 Ondansetron 4 Mg Odt Tab PO 4 mg Q8H PRN Administration Nausea And Vomiting Oxycodone/Acetaminophen 1 tab 08/29/21 09:00 09/14/21 12:06 Oxycodone /Acetaminophen 5-325mg Tab PO 1 tab Q6H PRN Administration Pain, Moderate (4-6) Valproic Acid 125 mg 09/08/21 22:00 09/14/21 09:08 Valproic Acid 250 Mg/5 Ml Oral Liqd PO 125 mg BID ZULMA Administration Ziprasidone 20 mg 08/29/21 10:30 09/08/21 08:28 Ziprasidone Mesylate 20 Mg Vial IM 20 mg Q4H PRN Administration Agitation Nutrition/Malnutrition Assess - Dietary Evaluation Nutrition/Malnutrition Findings: Nutrition Notes Start: 09/04/21 18:25 Freq: Status: Active Protocol: Document 09/04/21 18:25 REJI (Rec: 09/04/21 18:35 REJI [id number]) Nutrition Notes Need for Assessment generated from: LOS Initial or Follow up Assessment Current Diagnosis Malnutrition Other Pertinent Diagnosis Vascular Dementia w/Behavioral Disturbance, Encephalopathy, Anxiety... Current Diet Pureed Diet (since B 08/31). Labs/Tests 09/04: K 3.4, BUN 21, Crea 1.4 , Glu 139, Ca 8.2, HbA1c <4.0. Pertinent Medications 09/04: Folic Acid, others nutritionally unremarkable. Height 5 ft 8.9 in Weight 68 kg [place] Body Weight (kg) 72.45 BMI 22.1 Intake Prior to Admission Good Weight change and time frame Pt states being unsure if loss body weight [employer]. Weight Status Appropriate Subjective/Other Information RD consult for LOS assessment. Pt's PO intake of meals has been Good (75-100%), according to ADL notes. Pt is on Room Air, O2 saturation @ 98%, according to Vital Signs notes. Pt will return to his Hospice Care Facility after discharge, according to Progress notes.. Pt is on DNR/DNI status as per family request, according to Progress notes. Percent of energy/protein needs met: Prescribed Pureed Diet provides for energy/protein needs (1,804 Kcal/77 g) during LOS. Burn Absent Trauma Absent GI Symptoms None Food Allergy No Skin Integrity/Comment Unspecified bruises. Current % PO Good (75-100%) Minimum of two criteria No #1 Nutrition Diagnosis No nutrition diagnosis at this time Is patient on ventilator? No Is Patient Ambulatory and/or Out of Bed Yes REE-([place]-St. or-ambulatory/OOB) [ 1805.453 NUTR.MSJOOB] Calculation Used for Recommendations [place] Jeor Additional Notes Protein: 1-1.2 g/Kg ABW; 81-97 g/day. Fluids: 1 ml/Kcal, or as per MD. Nutrition Intervention Change Diet Order: Continue Pureed Diet. Revisit per MD consult or patient Sign Off request: Additional Comments Continue monitoring food tolerance, %PO intake of meals , and BM.
--- NOTE | 2021-09-14 19:03 | Progress Note ---
Assessment and Plan - Patient Problems (1) Vascular dementia with behavioral disturbance Current Visit: Yes Status: Acute Plan to address problem: Verbal prompting, verbal redirection, benzodiazepine therapy as clinically indicated. (2) Cerebral atherosclerosis Current Visit: Yes Status: Acute Plan to address problem: Risk factor reduction, antiplatelet therapy as clinically indicated, supportive care. (3) Encephalopathy Current Visit: Yes Status: Acute Plan to address problem: Supportive care, verbal redirection. Chronic in nature. (4) Generalized anxiety disorder Current Visit: Yes Status: Acute Plan to address problem: Benzodiazepine therapy as clinically indicated, continue medical management. (5) Malnutrition Current Visit: Yes Status: Acute Qualifiers: Protein-calorie malnutrition severity: moderate Plan to address problem: Dietary supplementation, increase protein intake. (6) Advance care planning Current Visit: Yes Status: Acute Plan to address problem: Disease education data, care plan discussed, diagnoses discussed, prognosis discussed. Patient is DNR as per request. Patient currently admitted to hospice care. +30 minutes. History Interval history: 76 YO Male with Vascular Dementia with Behavioral Disturbance, Cerebral Atherosclerosis, Encephalopathy, SANTA who is currently on Hospice Care. Pt is AND/DNR as per family request(). Pt is admitted to [facility] for psychiatric stabilization. Consult placed by Dr. Simmons for medical management. Patient seen and evaluated in the recreation room. Patient remains comfortable. Patient exhibits tangential thinking with diminished cognition. No reported Nursing events. Hospitalist Physical - Constitutional Vitals: Temp Pulse Resp BP Pulse Ox 97.7 F 88 18 123/67 97 09/14/21 08:47 09/14/21 08:47 09/14/21 12:06 09/14/21 08:47 09/14/21 08:47 General appearance: Present: no acute distress, well-nourished - EENT Eyes: Present: PERRL ENT: hearing intact, hearing decreased - Neck Neck: Present: supple - Respiratory Respiratory effort: normal Respiratory: bilateral: CTA - Cardiovascular Rhythm: regular Heart Sounds: Present: S1 & S2 - Extremities Extremities: no ischemia Peripheral Pulses: within normal limits - Abdominal General gastrointestinal: soft, non-tender, non-distended - Integumentary Integumentary: Present: clear, dry - Psychiatric Psychiatric: cooperative - Neurologic Neurologic: CNII-XII intact Results - Labs CBC & Chem 7: 09/01/21 11:27 09/01/21 11:27 Labs: Laboratory Last Values WBC 3.5 K/mm3 (4.5-11.0) L 09/01/21 11: RBC 3.33 M/mm3 (3.65-5.03) L 09/01/21 11:27 Hgb 8.1 gm/dl (11.8-15.2) L 09/01/21 11: Hct 27.2 % (35.5-45.6) L 09/01/21 11: MCV 82 fl (84-94) L 09/01/21 11: MCH 24 pg (28-32) L 09/01/21 11: MCHC 30 % (32-34) L 09/01/21 11: RDW 18.9 % (13.2-15.2) H 09/01/21 11:27 Plt Count 350 K/mm3 (140-440) 09/01/21 11:27 [place] % (Auto) Tableau Developer 09/01/21 11:27 Add Manual Diff Complete 09/01/21 11:27 Total Counted 100 09/01/21 11:27 Seg Neuts % (Manual) 65.0 % (40.0-70.0) 09/01/21 11: Band Neutrophils % 1.0 % 09/01/21 11: Lymphocytes % (Manual) 15.0 % (13.4-35.0) 09/01/21 11:27 Reactive Lymphs % (Man) 1.0 % 09/01/21 11: Monocytes % (Manual) 17.0 % (0.0-7.3) H 09/01/21 11:27 Eosinophils % (Manual) 0 % (0.0-4.3) 09/01/21 11:27 Basophils % (Manual) 0 % (0.0-1.8) 09/01/21 11:27 Metamyelocytes % 1.0 % 09/01/21 11:27 Myelocytes % 0 % 09/01/21 11:27 Promyelocytes % 0 % 09/01/21 11:27 Blast Cells % 0 % 09/01/21 11:27 Nucleated RBC % Not Reportable 09/01/21 11:27 Seg Neutrophils # Man 2.3 K/mm3 (1.8-7.7) 09/01/21 11:27 Band Neutrophils # 0.0 K/mm3 09/01/21 11:27 Lymphocytes # (Manual) 0.5 K/mm3 (1.2-5.4) L 09/01/21 11:27 Abs React Lymphs (Man) 0.0 K/mm3 09/01/21 11:27 Monocytes # (Manual) 0.6 K/mm3 (0.0-0.8) 09/01/21 11:27 Eosinophils # (Manual) 0.0 K/mm3 (0.0-0.4) 09/01/21 11: Basophils # (Manual) 0.0 K/mm3 (0.0-0.1) 09/01/21 11:27 Metamyelocytes # 0.0 K/mm3 09/01/21 11: Myelocytes # 0.0 K/mm3 09/01/21 11:27 Promyelocytes # 0.0 K/mm3 09/01/21 11: Blast Cells # 0.0 K/mm3 09/01/21 11:27 WBC Morphology Not Reportable 09/01/21 11:27 Hypersegmented Neuts Not Reportable 09/01/21 11:27 Hyposegmented Neuts Not Reportable 09/01/21 11:27 Hypogranular Neuts Not Reportable 09/01/21 11:27 Smudge Cells Not Reportable 09/01/21 11:27 Toxic Granulation Not Reportable 09/01/21 11:27 Toxic Vacuolation Not Reportable 09/01/21 11:27 Dohle Bodies Not Reportable 09/01/21 11:27 Pelger-Huet Anomaly Not Reportable 09/01/21 11:27 Jeannine Rods Not Reportable 09/01/21 11:27 Platelet Estimate Consistent w auto 09/01/21 11:27 Clumped Platelets Not Reportable 09/01/21 11:27 Plt Clumps, EDTA Not Reportable 09/01/21 11:27 Large Platelets Few 09/01/21 11:27 Giant Platelets Not Reportable 09/01/21 11:27 Platelet Satelliting Not Reportable 09/01/21 11:27 Plt Morphology Comment Not Reportable 09/01/21 11:27 RBC Morphology Not Reportable 09/01/21 11:27 Dimorphic RBCs Not Reportable 09/01/21 11:27 Polychromasia Not Reportable 09/01/21 11:27 Hypochromasia 2+ 09/01/21 11:27 Poikilocytosis Not Reportable 09/01/21 11:27 Anisocytosis 1+ 09/01/21 11:27 Microcytosis Not Reportable 09/01/21 11:27 Macrocytosis Not Reportable 09/01/21 11:27 Spherocytes Not Reportable 09/01/21 11:27 Pappenheimer Bodies Not Reportable 09/01/21 11:27 Sickle Cells Not Reportable 09/01/21 11:27 Target Cells Not Reportable 09/01/21 11:27 Tear Drop Cells Not Reportable 09/01/21 11:27 Ovalocytes Not Reportable 09/01/21 11:27 Helmet Cells Not Reportable 09/01/21 11:27 [place] Bodies Not Reportable 09/01/21 11:27 [place] Rings Not Reportable 09/01/21 11:27 [place] Cells Not Reportable 09/01/21 11:27 Bite Cells Not Reportable 09/01/21 11:27 Crenated Cell Not Reportable 09/01/21 11:27 Elliptocytes Not Reportable 09/01/21 11:27 Acanthocytes (Spur) Not Reportable 09/01/21 11:27 Rouleaux Not Reportable 09/01/21 11:27 Hemoglobin C Crystals Not Reportable 09/01/21 11:27 Schistocytes Not Reportable 09/01/21 11:27 Malaria parasites Not Reportable 09/01/21 11:27 Oliverio Bodies Not Reportable 09/01/21 11:27 Hem Pathologist Commnt No 09/01/21 11:27 Sodium 139 mmol/L (137-145) 09/01/21 11:27 Potassium 3.4 mmol/L (3.6-5.0) L 09/01/21 11:27 Chloride 102.3 mmol/L (98-107) 09/01/21 11:27 Carbon Dioxide 24 mmol/L (22-30) 09/01/21 11:27 Anion Gap 16 mmol/L 09/01/21 11:27 BUN 21 mg/dL (9-20) H 09/01/21 11:27 Creatinine 1.4 mg/dL (0.8-1.3) H 09/01/21 11:27 Estimated GFR 49 ml/min 09/01/21 11:27 BUN/Creatinine Ratio 15 % 09/01/21 11:27 Glucose 139 mg/dL (75-100) H 09/01/21 11:27 Hemoglobin A1c < 4.0 % (4-6) L 09/01/21 11:27 Calcium 8.2 mg/dL (8.4-10.2) L 09/01/21 11:27 Total Bilirubin 1.30 mg/dL (0.1-1.2) H 09/01/21 11:27 AST 46 units/L (5-40) H 09/01/21 11:27 ALT 17 units/L (7-56) 09/01/21 11:27 Alkaline Phosphatase 41 units/L (35-129) 09/01/21 11:27 Total Protein 6.2 g/dL (6.3-8.2) L 09/01/21 11:27 Albumin 3.2 g/dL (3.9-5) L 09/01/21 11:27 Albumin/Globulin Ratio 1.1 % 09/01/21 11:27 Triglycerides 97 mg/dL (2-149) 09/01/21 11:27 Cholesterol 110 mg/dL (50-199) 09/01/21 11:27 LDL Cholesterol Direct 58 mg/dL (50-130) 09/01/21 11:27 HDL Cholesterol 30 mg/dL (40-59) L 09/01/21 11:27 Cholesterol/HDL Ratio 3.66 % 09/01/21 11:27 TSH 2.720 mlU/mL (0.270-4.200) 09/01/21 11:27 Tejeda/IV: Voiding Method Toilet Active Medications - Current Medications Current Medications: Generic Name Dose Route Start Last Admin Trade Name Freq PRN Reason Stop Dose Admin Acetaminophen 650 mg 08/29/21 10:00 09/14/21 17:15 Acetaminophen 325 Mg Tab PO 650 mg Q4HR ZULMA Administration Docusate Sodium 100 mg 08/29/21 09:00 Docusate Sodium 100 Mg Cap PO PRN ZULMA Escitalopram Oxalate 5 mg 09/11/21 10:00 09/14/21 09:06 Escitalopram 10 Mg Tab PO 5 mg QDAY ZULMA Administration Ferrous Sulfate 325 mg 08/29/21 14:00 09/14/21 14:25 Ferrous Sulfate 325 Mg Tab PO 325 mg TID ZULMA Administration Folic Acid 1 mg 08/29/21 10:00 09/14/21 09:08 Folic Acid 1 Mg Tab PO 1 mg DAILY ZULMA Administration Haloperidol 2 mg 09/02/21 10:00 09/14/21 09:08 Haloperidol 2 Mg Tab PO 2 mg BID ZULMA Administration Lorazepam 1 mg 08/28/21 13:10 09/14/21 14:26 Lorazepam 1 Mg Tab PO 1 mg Q6H PRN Administration Anxiety Ondansetron HCl 4 mg 09/10/21 11:00 09/14/21 09:06 Ondansetron 4 Mg Odt Tab PO 4 mg Q8H PRN Administration Nausea And Vomiting Oxycodone/Acetaminophen 1 tab 08/29/21 09:00 09/14/21 12:06 Oxycodone /Acetaminophen 5-325mg Tab PO 1 tab Q6H PRN Administration Pain, Moderate (4-6) Valproic Acid 125 mg 09/08/21 22:00 09/14/21 09:08 Valproic Acid 250 Mg/5 Ml Oral Liqd PO 125 mg BID ZULMA Administration Ziprasidone 20 mg 08/29/21 10:30 09/08/21 08:28 Ziprasidone Mesylate 20 Mg Vial IM 20 mg Q4H PRN Administration Agitation Nutrition/Malnutrition Assess - Dietary Evaluation Nutrition/Malnutrition Findings: Nutrition Notes Start: 09/04/21 18:25 Freq: Status: Active Protocol: Document 09/04/21 18:25 REJI (Rec: 09/04/21 18:35 REJI [id number]) Nutrition Notes Need for Assessment generated from: LOS Initial or Follow up Assessment Current Diagnosis Malnutrition Other Pertinent Diagnosis Vascular Dementia w/Behavioral Disturbance, Encephalopathy, Anxiety... Current Diet Pureed Diet (since B 08/31). Labs/Tests 09/04: K 3.4, BUN 21, Crea 1.4 , Glu 139, Ca 8.2, HbA1c <4.0. Pertinent Medications 09/04: Folic Acid, others nutritionally unremarkable. Height 5 ft 8.9 in Weight 68 kg [place] Body Weight (kg) 72.45 BMI 22.1 Intake Prior to Admission Good Weight change and time frame Pt states being unsure if loss body weight PRODUCTION MATERIAL COORDINATOR. Weight Status Appropriate Subjective/Other Information RD consult for LOS assessment. Pt's PO intake of meals has been Good (75-100%), according to ADL notes. Pt is on Room Air, O2 saturation @ 98%, according to Vital Signs notes. Pt will return to his Hospice Care Facility after discharge, according to Progress notes.. Pt is on DNR/DNI status as per family request, according to Progress notes. Percent of energy/protein needs met: Prescribed Pureed Diet provides for energy/protein needs (1,804 Kcal/77 g) during LOS. Burn Absent Trauma Absent GI Symptoms None Food Allergy No Skin Integrity/Comment Unspecified bruises. Current % PO Good (75-100%) Minimum of two criteria No #1 Nutrition Diagnosis No nutrition diagnosis at this time Is patient on ventilator? No Is Patient Ambulatory and/or Out of Bed Yes REE-([place]-St. Jeor-ambulatory/OOB) [ 1805.453 NUTR.MSJOOB] Calculation Used for Recommendations [place]-St Jeor Additional Notes Protein: 1-1.2 g/Kg ABW; 81-97 g/day. Fluids: 1 ml/Kcal, or as per MD. Nutrition Intervention Change Diet Order: Continue Pureed Diet. Revisit per MD consult or patient Sign Off request: Additional Comments Continue monitoring food tolerance, %PO intake of meals , and BM.
[2021-09-15] MEDS: ACETAMINOPHEN 325 MG TAB PO SCH ×6 (06:59→22:28)
--- NOTE | 2021-09-15 08:54 | Progress Note ---
Subjective Date of service: 09/15/21 Principal diagnosis: Dementia with behavioral disturbances Subjective Comment: 09/15: The patient was see this morning. He presents with depressive mood. When asked about sleep he states " I don't know." The patient denies SI/HI/ AVHs. No changes made today. 09/14:The patient was see this morning. He states mood as " terrible, the same old stuff." He reports sleep and appetite as ok. The patient denies SI/HI/ AVHs. No changes made today. 09/13: The patient was see this morning. He states he is doing well " I'm not a super man, I feel tired." He denies depression " 0 this morning." The patient denies SI/HI. No changes made today. 09/12:The patient was seen at breakfast. He reports sleep as fair. He states he is not doing well; states mood as slow and tired. The patient denies SI/HI. No changes made today. 09/11:The patient was seen today. He is lying in bed awake. He is calm and cooperative. His thoughts are more organized. He says he doesn't feel too well. The patient says "I feel weak." When asking if he slept good, he replies "I don't ever sleep good." The patient says he is depressed. He says "I don't have anyone." I told him his had called and checked on him. He says "no she didn't. I don't have a ." The patient denies SI/HI. He says "no, I don't want to ." Will start Lexapro for depression. 09/10 The patient was seen today. He is calm and cooperative, but confused. He says he's sick to his stomach. His breakfast tray is in front of him. The patient says he slept okay. He denies SI/HI. Start Zofran ODT q8h for N/V. 09/09 The patient was seen today. He is sitting in the dayroom eating breakfast. He is much more calm today. He is confused, but not speaking as nonsensically today. He says he's hurting in his leg. He says he slept okay. 09/08 The patient was seen today. He is confused. He is irritable. He says "I'm up starting to cook breakfast but they wont let me do what I want to do." The patient has the tech at bedside with him because staff says he is trying to get out of bed, very confused, unsteady gait and talking nonsensically. The nurse medicated the patient with Chris marrufo. Will start Valproic acid 125mg po BID to help stabilize mood. 09/07 The patient was seen today. He is confused, but pleasant. He is talking about "some white stuff that's on the floor." 09/06 The patient was seen today. He is confused. He is lying in bed. He is delusional. He says "they gone kill me." He says "the window is falling on me. I'm just gone stay out of the way." 09/05 The patient was seen today. He is confused. He is lying in bed staring straight ahead. I have to nudge him to get him to respond. He then looks at me and then turns his head back straight ahead. I nudge the patient and again and asks if he's okay and why isn't he talking. He politely grabs my hand and says good morning. He says "I just got back from a ." The patient will be placed with hospice upon discharge. 09/04:The patient was seen at breakfast today. He continues to endorse depression. He denies any current suicidal/homicidal ideation and denies hallucinations. No aggressive behavior reported. No changes made today. 09/03:The patient was seen this morning. He continues to endorse depression. He denies any current suicidal/homicidal ideation and denies hallucinations. No agg ressive behavior reported. No changes made today. 09/02:The patient was seen this morning. He is alert and oriented to self. He reports doing well. He denies any current suicidal/homicidal ideation and denies hallucinations. No aggressive behavior reported. 09/01:The patient was seen this morning. The patient states " I'm just here." He endorses depression rating as 7-8/10. He denies any current suicidal/homicidal ideation and denies hallucinations. 08/31: The patient was seen this morning. The patient is resting quietly in bed. Per nurse, he had an uneventful night. 08/30: The patient was seen this morning. He is calm. He continues to be confused. Unable to assess SI/HI/ AVH due to current mentation. Start Haldol 2mg IM BID. REVIEW OF SYSTEMS Unable to obtain MENTAL STATUS EXAMINATION Unable to obtain Diagnoses: Delusional Disorder Treatment Plan Patient admitted for inpatient psychiatric evaluation, medication adjustment and close monitoring The patient's behavior, mood, sleep and appetite will be closely monitored. Patient enrolled in individual and group therapeutic sessions and encouraged to attend. Patient provided with a safe and structured environment. Patient's physical health needs will be addressed by the Hospitalist. Hospitalist Consulted Labs including CBC, CMP, Lipid profile and Hemoglobin A1C levels ordered for baseline reference Social Assessment will be completed and the Resident Services Director will work with patient and family to ensure a suitable and safe disposition Medication adjustment will be made as clinically indicated Lexapro 5mg po daily Usual Wellness Jewish/Preservation: - Start Trazodone 50 mg po QHS & 50 mg po QHS PRN between 10 PM & 2 AM for insomnia - Start Melatonin 5 mg po QHS to promote circadian rhythm The patient agreed on the treatment plan, understood the risk, benefit, alternative treatment, potential consequence of no treatment, and gave informed consent. Estimated days: 2 Post hospital care: primary care provider, psychiatric provider Case staffed with Dr. Herndon Medications and Allergies Medications and Allergies Allergies Allergy/AdvReac Type Severity Reaction Status Date / Time No Known Allergies Allergy Verified 08/28/21 22:01 Home Medications Medication Instructions Recorded Confirmed Last Taken Type ALPRAZolam [Xanax TAB] 2 mg PO TID 08/27/21 08/27/21 Unknown History Acetaminophen [Aphen] 650 mg PO Q4HR 08/27/21 08/27/21 Unknown History Docusate Sodium [Colace CAP] 100 mg PO PRN 08/27/21 08/27/21 Unknown History Ferrous Sulfate [Feosol] 325 mg PO TID 08/27/21 08/27/21 Unknown History Folic Acid 1 mg PO DAILY 08/27/21 08/27/21 Unknown History Oxycodone HCl/Acetaminophen 1 tab PO Q6HR PRN 08/27/21 08/27/21 Unknown History [Percocet 10/325 mg] Active Meds: Active Medications Acetaminophen (Acetaminophen 325 Mg Tab) 650 mg PO Q4HR [facility] Last Admin: 09/15/21 06:59 Dose: 650 mg Docusate Sodium (Docusate Sodium 100 Mg Cap) 100 mg PO PRN [facility] Escitalopram Oxalate (Escitalopram 10 Mg Tab) 5 mg PO QDAY [facility] Last Admin: 09/14/21 09:06 Dose: 5 mg Ferrous Sulfate (Ferrous Sulfate 325 Mg Tab) 325 mg PO TID [facility] Last Admin: 09/14/21 20:55 Dose: 325 mg Folic Acid (Folic Acid 1 Mg Tab) 1 mg PO DAILY [facility] Last Admin: 09/14/21 09:08 Dose: 1 mg Haloperidol (Haloperidol 2 Mg Tab) 2 mg PO BID [facility] Last Admin: 09/14/21 21:48 Dose: 2 mg Lorazepam (Lorazepam 1 Mg Tab) 1 mg PO Q6H PRN PRN Reason: Anxiety Last Admin: 09/14/21 14:26 Dose: 1 mg Ondansetron HCl (Ondansetron 4 Mg Odt Tab) 4 mg PO Q8H PRN PRN Reason: Nausea And Vomiting Last Admin: 09/14/21 09:06 Dose: 4 mg Oxycodone/Acetaminophen (Oxycodone /Acetaminophen 5-325mg Tab) 1 tab PO Q6H PRN PRN Reason: Pain, Moderate (4-6) Last Admin: 09/14/21 12:06 Dose: 1 tab Valproic Acid (Valproic Acid 250 Mg/5 Ml Oral Liqd) 125 mg PO BID [facility] Last Admin: 09/14/21 21:48 Dose: 125 mg Ziprasidone (Ziprasidone Mesylate 20 Mg Vial) 20 mg IM Q4H PRN PRN Reason: Agitation Last Admin: 09/08/21 08:28 Dose: 20 mg Results - Results Labs/Vitals: Laboratory Last Values WBC 3.5 K/mm3 (4.5-11.0) L 09/01/21 11:27 RBC 3.33 M/mm3 (3.65-5.03) L 09/01/21 11:27 Hgb 8.1 gm/dl (11.8-15.2) L 09/01/21 11:27 Hct 27.2 % (35.5-45.6) L 09/01/21 11:27 MCV 82 fl (84-94) L 09/01/21 11:27 MCH 24 pg (28-32) L 09/01/21 11:27 MCHC 30 % (32-34) L 09/01/21 11: RDW 18.9 % (13.2-15.2) H 09/01/21 11: Plt Count 350 K/mm3 (140-440) 09/01/21 11: Grady % (Auto) Director Of Corporate Marketing 09/01/21 11: Add Manual Diff Complete 09/01/21 11: Total Counted 100 09/01/21 11:27 Seg Neuts % (Manual) 65.0 % (40.0-70.0) 09/01/21 11: Band Neutrophils % 1.0 % 09/01/21 11: Lymphocytes % (Manual) 15.0 % (13.4-35.0) 09/01/21 11: Reactive Lymphs % (Man) 1.0 % 09/01/21 11: Monocytes % (Manual) 17.0 % (0.0-7.3) H 09/01/21 11: Eosinophils % (Manual) 0 % (0.0-4.3) 09/01/21 11: Basophils % (Manual) 0 % (0.0-1.8) 09/01/21 11: Metamyelocytes % 1.0 % 09/01/21 11: Myelocytes % 0 % 09/01/21 11: Promyelocytes % 0 % 09/01/21 11: Blast Cells % 0 % 09/01/21 11: Nucleated RBC % Not Reportable 09/01/21 11: Seg Neutrophils # Man 2.3 K/mm3 (1.8-7.7) 09/01/21 11: Band Neutrophils # 0.0 K/mm3 09/01/21 11:27 Lymphocytes # (Manual) 0.5 K/mm3 (1.2-5.4) L 09/01/21 11: Abs React Lymphs (Man) 0.0 K/mm3 09/01/21 11: Monocytes # (Manual) 0.6 K/mm3 (0.0-0.8) 09/01/21 11: Eosinophils # (Manual) 0.0 K/mm3 (0.0-0.4) 09/01/21 11:27 Basophils # (Manual) 0.0 K/mm3 (0.0-0.1) 09/01/21 11:27 Metamyelocytes # 0.0 K/mm3 09/01/21 11:27 Myelocytes # 0.0 K/mm3 09/01/21 11:27 Promyelocytes # 0.0 K/mm3 09/01/21 11:27 Blast Cells # 0.0 K/mm3 09/01/21 11:27 WBC Morphology Not Reportable 09/01/21 11:27 Hypersegmented Neuts Not Reportable 09/01/21 11:27 Hyposegmented Neuts Not Reportable 09/01/21 11:27 Hypogranular Neuts Not Reportable 09/01/21 11:27 Smudge Cells Not Reportable 09/01/21 11:27 Toxic Granulation Not Reportable 09/01/21 11:27 Toxic Vacuolation Not Reportable 09/01/21 11:27 Dohle Bodies Not Reportable 09/01/21 11:27 Pelger-Huet Anomaly Not Reportable 09/01/21 11:27 Jeannine Rods Not Reportable 09/01/21 11:27 Platelet Estimate Consistent w auto 09/01/21 11:27 Clumped Platelets Not Reportable 09/01/21 11:27 Plt Clumps, EDTA Not Reportable 09/01/21 11:27 Large Platelets Few 09/01/21 11:27 Giant Platelets Not Reportable 09/01/21 11:27 Platelet Satelliting Not Reportable 09/01/21 11:27 Plt Morphology Comment Not Reportable 09/01/21 11:27 RBC Morphology Not Reportable 09/01/21 11:27 Dimorphic RBCs Not Reportable 09/01/21 11:27 Polychromasia Not Reportable 09/01/21 11:27 Hypochromasia 2+ 09/01/21 11:27 Poikilocytosis Not Reportable 09/01/21 11:27 Anisocytosis 1+ 09/01/21 11:27 Microcytosis Not Reportable 09/01/21 11:27 Macrocytosis Not Reportable 09/01/21 11:27 Spherocytes Not Reportable 09/01/21 11:27 Pappenheimer Bodies Not Reportable 09/01/21 11:27 Sickle Cells Not Reportable 09/01/21 11:27 Target Cells Not Reportable 09/01/21 11:27 Tear Drop Cells Not Reportable 09/01/21 11:27 Ovalocytes Not Reportable 09/01/21 11:27 Helmet Cells Not Reportable 09/01/21 11:27 Morley-Wilburn Bodies Not Reportable 09/01/21 11:27 Cobalt Rings Not Reportable 09/01/21 11:27 Iraida Cells Not Reportable 09/01/21 11:27 Bite Cells Not Reportable 09/01/21 11:27 Crenated Cell Not Reportable 09/01/21 11:27 Elliptocytes Not Reportable 09/01/21 11:27 Acanthocytes (Spur) Not Reportable 09/01/21 11:27 Rouleaux Not Reportable 09/01/21 11:27 Hemoglobin C Crystals Not Reportable 09/01/21 11:27 Schistocytes Not Reportable 09/01/21 11:27 Malaria parasites Not Reportable 09/01/21 11:27 Oliverio Bodies Not Reportable 09/01/21 11:27 Hem Pathologist Commnt No 09/01/21 11:27 Sodium 139 mmol/L (137-145) 09/01/21 11:27 Potassium 3.4 mmol/L (3.6-5.0) L 09/01/21 11:27 Chloride 102.3 mmol/L (98-107) 09/01/21 11:27 Carbon Dioxide 24 mmol/L (22-30) 09/01/21 11:27 Anion Gap 16 mmol/L 09/01/21 11:27 BUN 21 mg/dL (9-20) H 09/01/21 11:27 Creatinine 1.4 mg/dL (0.8-1.3) H 09/01/21 11:27 Estimated GFR 49 ml/min 09/01/21 11:27 BUN/Creatinine Ratio 15 % 09/01/21 11:27 Glucose 139 mg/dL (75-100) H 09/01/21 11:27 Hemoglobin A1c < 4.0 % (4-6) L 09/01/21 11:27 Calcium 8.2 mg/dL (8.4-10.2) L 09/01/21 11:27 Total Bilirubin 1.30 mg/dL (0.1-1.2) H 09/01/21 11:27 AST 46 units/L (5-40) H 09/01/21 11:27 ALT 17 units/L (7-56) 09/01/21 11:27 Alkaline Phosphatase 41 units/L (35-129) 09/01/21 11:27 Total Protein 6.2 g/dL (6.3-8.2) L 09/01/21 11:27 Albumin 3.2 g/dL (3.9-5) L 09/01/21 11:27 Albumin/Globulin Ratio 1.1 % 09/01/21 11:27 Triglycerides 97 mg/dL (2-149) 09/01/21 11:27 Cholesterol 110 mg/dL (50-199) 09/01/21 11:27 LDL Cholesterol Direct 58 mg/dL (50-130) 09/01/21 11:27 HDL Cholesterol 30 mg/dL (40-59) L 09/01/21 11:27 Cholesterol/HDL Ratio 3.66 % 09/01/21 11:27 TSH 2.720 mlU/mL (0.270-4.200) 09/01/21 11:27 Last Vital Signs Temp 97.0 F L 09/14/21 20:44 Pulse 90 09/14/21 20:44 Resp 18 09/14/21 20:44 BP 152/84 09/14/21 20:44 Pulse Ox 97 09/14/21 20:44
[2021-09-15] MEDS: FERROUS SULFATE 325 MG TAB PO SCH ×3 (09:32→22:27)
[2021-09-15] MEDS: FOLIC ACID 1 MG TAB PO SCH (12:05)
[2021-09-15] MEDS: ESCITALOPRAM 10 MG TAB PO SCH (12:05)
[2021-09-15] MEDS: VALPROIC ACID 250 MG/5 ML ORAL LIQD PO SCH ×2 (12:05→22:28)
[2021-09-15] MEDS: HALOPERIDOL 2 MG TAB PO SCH ×2 (12:05→22:27)
[2021-09-15] MEDS: oxyCODONE /ACETAMINOPHEN 5-325MG TAB PO PRN (13:28)
[2021-09-16] MEDS: ACETAMINOPHEN 325 MG TAB PO SCH ×6 (02:27→21:58)
--- NOTE | 2021-09-16 07:31 | Progress Note ---
Assessment and Plan Assessment and Plan - Patient Problems (1) Vascular dementia with behavioral disturbance Current Visit: Yes Status: Acute Plan to address problem: Verbal prompting, verbal redirection, benzodiazepine therapy as clinically indicated. (2) Cerebral atherosclerosis Current Visit: Yes Status: Acute Plan to address problem: Risk factor reduction, antiplatelet therapy as clinically indicated, supportive care. (3) Encephalopathy Current Visit: Yes Status: Acute Plan to address problem: Supportive care, verbal redirection. Chronic in nature. (4) Generalized anxiety disorder Current Visit: Yes Status: Acute Plan to address problem: Benzodiazepine therapy as clinically indicated, continue medical management. (5) Malnutrition Current Visit: Yes Status: Acute Qualifiers: Protein-calorie malnutrition severity: moderate Plan to address problem: Dietary supplementation, increase protein intake. (6) Advance care planning Current Visit: Yes Status: Acute Plan to address problem: Disease education data, care plan discussed, diagnoses discussed, prognosis discussed. Patient is DNR as per request. Patient currently admitted to hospice care. +30 minutes. Subjective Date of service: 09/15/21 Principal diagnosis: Dementia with behavioral disturbances Interval history: History Interval history: 76 YO Male with Vascular Dementia with Behavioral Disturbance, Cerebral At herosclerosis, Encephalopathy, SANTA who is currently on Hospice Care. Pt is AND/DNR as per family request(). Pt is admitted to [facility] for psychiatric stabilization. Consult placed by Dr. Simmons for medical management. Patient seen and evaluated in the recreation room. Patient agitati on/confusion improved. Patient remains comfortable. Patient exhibits tangential thinking with diminished cognition. Objective - Constitutional Vitals: Vital Signs - 12hr 09/15/21 20:14 Temperature 97.4 F L Pulse Rate 85 Respiratory 16 Rate Blood Pressure 146/70 O2 Sat by Pulse 91 Oximetry General appearance: Present: no acute distress, well-nourished - EENT Eyes: PERRL, EOM intact ENT: hearing intact, clear oral mucosa Ears: bilateral: normal - Neck Neck: supple, normal ROM - Respiratory Respiratory effort: normal Respiratory: bilateral: CTA - Breasts Breasts: normal - Cardiovascular Heart rate: 78 Rhythm: regular Heart Sounds: Present: S1 & S2. Absent: gallop, rub Extremities: pulses intact, No edema, normal color, Full ROM - Gastrointestinal General gastrointestinal: Present: soft, non-tender, non-distended, normal bowel sounds - Genitourinary Male genitourinary: normal - Integumentary Integumentary: clear, warm, dry - Musculoskeletal Musculoskeletal: 1, strength equal bilaterally - Neurologic Neurologic: moves all extremities - Psychiatric Psychiatric: memory intact, appropriate mood/affect, intact judgment & insight - Labs CBC & Chem 7: 09/01/21 11:27 09/01/21 11:27
[2021-09-16] MEDS: ESCITALOPRAM 10 MG TAB PO SCH (09:11)
[2021-09-16] MEDS: FERROUS SULFATE 325 MG TAB PO SCH ×3 (09:11→21:59)
[2021-09-16] MEDS: VALPROIC ACID 250 MG/5 ML ORAL LIQD PO SCH ×2 (09:12→21:59)
[2021-09-16] MEDS: HALOPERIDOL 2 MG TAB PO SCH ×2 (09:12→21:59)
[2021-09-16] MEDS: FOLIC ACID 1 MG TAB PO SCH (09:12)
--- NOTE | 2021-09-16 09:50 | Progress Note ---
Subjective Date of service: 09/16/21 Principal diagnosis: Dementia with behavioral disturbances Subjective Comment: 09/16: The patient was see this morning. He endorses depression but unable to rate. The patient denies SI/HI/ AVHs. No changes made today. 09/15: The patient was see this morning. He presents with depressive mood. When asked about sleep he states " I don't know." The patient denies SI/HI/ AVHs. No changes made today. 09/14:The patient was see this morning. He states mood as " terrible, the same old stuff." He reports sleep and appetite as ok. The patient denies SI/HI/ AVHs. No changes made today. 09/13: The patient was see this morning. He states he is doing well " I'm not a super man, I feel tired." He denies depression " 0 this morning." The patient denies SI/HI. No changes made today. 09/12:The patient was seen at breakfast. He reports sleep as fair. He states he is not doing well; states mood as slow and tired. The patient denies SI/HI. No changes made today. 09/11:The patient was seen today. He is lying in bed awake. He is calm and cooperative. His thoughts are more organized. He says he doesn't feel too well. The patient says "I feel weak." When asking if he slept good, he replies "I don't ever sleep good." The patient says he is depressed. He says "I don't have anyone." I told him his had called and checked on him. He says "no she didn't. I don't have a ." The patient denies SI/HI. He says "no, I don't want to ." Will start Lexapro for depression. 09/10 The patient was seen today. He is calm and cooperative, but confused. He says he's sick to his stomach. His breakfast tray is in front of him. The patient says he slept okay. He denies SI/HI. Start Zofran ODT q8h for N/V. 09/09 The patient was seen today. He is sitting in the dayroom eating breakfast. He is much more calm today. He is confused, but not speaking as nonsensically today. He says he's hurting in his leg. He says he slept okay. 09/08 The patient was seen today. He is confused. He is irritable. He says "I'm up starting to cook breakfast but they wont let me do what I want to do." The patient has the tech at bedside with him because staff says he is trying to get out of bed, very confused, unsteady gait and talking nonsensically. The nurse medicated the patient with Chris marrufo. Will start Valproic acid 125mg po BID to help stabilize mood. 09/07 The patient was seen today. He is confused, but pleasant. He is talking about "some white stuff that's on the floor." 09/06 The patient was seen today. He is confused. He is lying in bed. He is delusional. He says "they gone kill me." He says "the window is falling on me. I'm just gone stay out of the way." 09/05 The patient was seen today. He is confused. He is lying in bed staring straight ahead. I have to nudge him to get him to respond. He then looks at me and then turns his head back straight ahead. I nudge the patient and again and asks if he's okay and why isn't he talking. He politely grabs my hand and says good morning. He says "I just got back from a ." The patient will be placed with hospice upon discharge. 09/04:The patient was seen at breakfast today. He continues to endorse depression. He denies any current suicidal/homicidal ideation and denies hallucinations. No aggressive behavior reported. No changes made today. 09/03:The patient was seen this morning. He continues to endorse depression. He denies any current suicidal/homicidal ideation and denies hallucinations. No aggressive behavior reported. No changes made today. 09/02:The patient was seen this morning. He is alert and oriented to self. He reports doing well. He denies any current suicidal/homicidal ideation and denies hallucinations. No aggressive behavior reported. 09/01:The patient was seen this morning. The patient states " I'm just here." He endorses depression rating as 7-8/10. He denies any current suicidal/homicidal ideation and denies hallucinations. 08/31: The patient was seen this morning. The patient is resting quietly in bed. Per nurse, he had an uneventful night. 08/30: The patient was seen this morning. He is calm. He continues to be confused. Unable to assess SI/HI/ AVH due to current mentation. Start Haldol 2mg IM BID. REVIEW OF SYSTEMS Unable to obtain MENTAL STATUS EXAMINATION Unable to obtain Diagnoses: Delusional Disorder Treatment Plan Patient admitted for inpatient psychiatric evaluation, medication adjustment and close monitoring The patient's behavior, mood, sleep and appetite will be closely monitored. Patient enrolled in individual and group therapeutic sessions and encouraged to attend. Patient provided with a safe and structured environment. Patient's physical health needs will be addressed by the Hospitalist. Hospitalist Consulted Labs including CBC, CMP, Lipid profile and Hemoglobin A1C levels ordered for baseline reference Social Assessment will be completed and the Matlab Developer will work with patient and family to ensure a suitable and safe disposition Medication adjustment will be made as clinically indicated Lexapro 5mg po daily Usual Wellness Congregational/Preservation: - Start Trazodone 50 mg po QHS & 50 mg po QHS PRN between 10 PM & 2 AM for insomnia - Start Melatonin 5 mg po QHS to promote circadian rhythm The patient agreed on the treatment plan, understood the risk, benefit, alternative treatment, potential consequence of no treatment, and gave informed consent. Estimated days: 2 Post hospital care: primary care provider, psychiatric provider Case staffed with Dr. Herndon Medications and Allergies Medications and Allergies Allergies Allergy/AdvReac Type Severity Reaction Status Date / Time No Known Allergies Allergy Verified 08/28/21 22:01 Home Medications Medication Instructions Recorded Confirmed Last Taken Type ALPRAZolam [Xanax TAB] 2 mg PO TID 08/27/21 08/27/21 Unknown History Acetaminophen [Aphen] 650 mg PO Q4HR 08/27/21 08/27/21 Unknown History Docusate Sodium [Colace CAP] 100 mg PO PRN 08/27/21 08/27/21 Unknown History Ferrous Sulfate [Feosol] 325 mg PO TID 08/27/21 08/27/21 Unknown History Folic Acid 1 mg PO DAILY 08/27/21 08/27/21 Unknown History Oxycodone HCl/Acetaminophen 1 tab PO Q6HR PRN 08/27/21 08/27/21 Unknown History [Percocet 10/325 mg] Active Meds: Active Medications Acetaminophen (Acetaminophen 325 Mg Tab) 650 mg PO Q4HR [facility] Last Admin: 09/16/21 09:12 Dose: 650 mg Docusate Sodium (Docusate Sodium 100 Mg Cap) 100 mg PO PRN [facility] Escitalopram Oxalate (Escitalopram 10 Mg Tab) 5 mg PO QDAY [facility] Last Admin: 09/16/21 09:11 Dose: 5 mg Ferrous Sulfate (Ferrous Sulfate 325 Mg Tab) 325 mg PO TID [facility] Last Admin: 09/16/21 09:11 Dose: 325 mg Folic Acid (Folic Acid 1 Mg Tab) 1 mg PO DAILY [facility] Last Admin: 09/16/21 09:12 Dose: 1 mg Haloperidol (Haloperidol 2 Mg Tab) 2 mg PO BID [facility] Last Admin: 09/16/21 09:12 Dose: 2 mg Lorazepam (Lorazepam 1 Mg Tab) 1 mg PO Q6H PRN PRN Reason: Anxiety Last Admin: 09/14/21 14:26 Dose: 1 mg Ondansetron HCl (Ondansetron 4 Mg Odt Tab) 4 mg PO Q8H PRN PRN Reason: Nausea And Vomiting Last Admin: 09/14/21 09:06 Dose: 4 mg Oxycodone/Acetaminophen (Oxycodone /Acetaminophen 5-325mg Tab) 1 tab PO Q6H PRN PRN Reason: Pain, Moderate (4-6) Last Admin: 09/15/21 13:28 Dose: 1 tab Valproic Acid (Valproic Acid 250 Mg/5 Ml Oral Liqd) 125 mg PO BID [facility] Last Admin: 09/16/21 09:12 Dose: 125 mg Ziprasidone (Ziprasidone Mesylate 20 Mg Vial) 20 mg IM Q4H PRN PRN Reason: Agitation Last Admin: 09/08/21 08:28 Dose: 20 mg Results - Results Labs/Vitals: Laboratory Last Values WBC 3.5 K/mm3 (4.5-11.0) L 09/01/21 11:27 RBC 3.33 M/mm3 (3.65-5.03) L 09/01/21 11:27 Hgb 8.1 gm/dl (11.8-15.2) L 09/01/21 11:27 Hct 27.2 % (35.5-45.6) L 09/01/21 11: MCV 82 fl (84-94) L 09/01/21 11: MCH 24 pg (28-32) L 09/01/21 11: MCHC 30 % (32-34) L 09/01/21 11: RDW 18.9 % (13.2-15.2) H 09/01/21 11:27 Plt Count 350 K/mm3 (140-440) 09/01/21 11:27 Owen % (Auto) Airplane Inspector 09/01/21 11:27 Add Manual Diff Complete 09/01/21 11: Total Counted 100 09/01/21 11: Seg Neuts % (Manual) 65.0 % (40.0-70.0) 09/01/21 11: Band Neutrophils % 1.0 % 09/01/21 11: Lymphocytes % (Manual) 15.0 % (13.4-35.0) 09/01/21 11: Reactive Lymphs % (Man) 1.0 % 09/01/21 11:27 Monocytes % (Manual) 17.0 % (0.0-7.3) H 09/01/21 11: Eosinophils % (Manual) 0 % (0.0-4.3) 09/01/21 11: Basophils % (Manual) 0 % (0.0-1.8) 09/01/21 11: Metamyelocytes % 1.0 % 09/01/21 11: Myelocytes % 0 % 09/01/21 11: Promyelocytes % 0 % 09/01/21 11: Blast Cells % 0 % 09/01/21 11: Nucleated RBC % Not Reportable 09/01/21 11: Seg Neutrophils # Man 2.3 K/mm3 (1.8-7.7) 09/01/21 11: Band Neutrophils # 0.0 K/mm3 09/01/21 11: Lymphocytes # (Manual) 0.5 K/mm3 (1.2-5.4) L 09/01/21 11:27 Abs React Lymphs (Man) 0.0 K/mm3 09/01/21 11:27 Monocytes # (Manual) 0.6 K/mm3 (0.0-0.8) 09/01/21 11:27 Eosinophils # (Manual) 0.0 K/mm3 (0.0-0.4) 09/01/21 11:27 Basophils # (Manual) 0.0 K/mm3 (0.0-0.1) 09/01/21 11:27 Metamyelocytes # 0.0 K/mm3 09/01/21 11:27 Myelocytes # 0.0 K/mm3 09/01/21 11:27 Promyelocytes # 0.0 K/mm3 09/01/21 11:27 Blast Cells # 0.0 K/mm3 09/01/21 11:27 WBC Morphology Not Reportable 09/01/21 11:27 Hypersegmented Neuts Not Reportable 09/01/21 11:27 Hyposegmented Neuts Not Reportable 09/01/21 11:27 Hypogranular Neuts Not Reportable 09/01/21 11:27 Smudge Cells Not Reportable 09/01/21 11:27 Toxic Granulation Not Reportable 09/01/21 11:27 Toxic Vacuolation Not Reportable 09/01/21 11:27 Dohle Bodies Not Reportable 09/01/21 11:27 Pelger-Huet Anomaly Not Reportable 09/01/21 11:27 Jeannine Rods Not Reportable 09/01/21 11:27 Platelet Estimate Consistent w auto 09/01/21 11:27 Clumped Platelets Not Reportable 09/01/21 11:27 Plt Clumps, EDTA Not Reportable 09/01/21 11:27 Large Platelets Few 09/01/21 11:27 Giant Platelets Not Reportable 09/01/21 11:27 Platelet Satelliting Not Reportable 09/01/21 11:27 Plt Morphology Comment Not Reportable 09/01/21 11:27 RBC Morphology Not Reportable 09/01/21 11:27 Dimorphic RBCs Not Reportable 09/01/21 11:27 Polychromasia Not Reportable 09/01/21 11:27 Hypochromasia 2+ 09/01/21 11:27 Poikilocytosis Not Reportable 09/01/21 11:27 Anisocytosis 1+ 09/01/21 11:27 Microcytosis Not Reportable 09/01/21 11:27 Macrocytosis Not Reportable 09/01/21 11:27 Spherocytes Not Reportable 09/01/21 11:27 Pappenheimer Bodies Not Reportable 09/01/21 11:27 Sickle Cells Not Reportable 09/01/21 11:27 Target Cells Not Reportable 09/01/21 11:27 Tear Drop Cells Not Reportable 09/01/21 11:27 Ovalocytes Not Reportable 09/01/21 11:27 Helmet Cells Not Reportable 09/01/21 11:27 Morley-Veazie Bodies Not Reportable 09/01/21 11:27 [place] Rings Not Reportable 09/01/21 11:27 Iraida Cells Not Reportable 09/01/21 11:27 Bite Cells Not Reportable 09/01/21 11:27 Crenated Cell Not Reportable 09/01/21 11:27 Elliptocytes Not Reportable 09/01/21 11:27 Acanthocytes (Spur) Not Reportable 09/01/21 11:27 Rouleaux Not Reportable 09/01/21 11:27 Hemoglobin C Crystals Not Reportable 09/01/21 11:27 Schistocytes Not Reportable 09/01/21 11:27 Malaria parasites Not Reportable 09/01/21 11:27 Oliverio Bodies Not Reportable 09/01/21 11:27 Hem Pathologist Commnt No 09/01/21 11:27 Sodium 139 mmol/L (137-145) 09/01/21 11:27 Potassium 3.4 mmol/L (3.6-5.0) L 09/01/21 11:27 Chloride 102.3 mmol/L (98-107) 09/01/21 11:27 Carbon Dioxide 24 mmol/L (22-30) 09/01/21 11:27 Anion Gap 16 mmol/L 09/01/21 11:27 BUN 21 mg/dL (9-20) H 09/01/21 11:27 Creatinine 1.4 mg/dL (0.8-1.3) H 09/01/21 11:27 Estimated GFR 49 ml/min 09/01/21 11:27 BUN/Creatinine Ratio 15 % 09/01/21 11:27 Glucose 139 mg/dL (75-100) H 09/01/21 11:27 Hemoglobin A1c < 4.0 % (4-6) L 09/01/21 11:27 Calcium 8.2 mg/dL (8.4-10.2) L 09/01/21 11:27 Total Bilirubin 1.30 mg/dL (0.1-1.2) H 09/01/21 11:27 AST 46 units/L (5-40) H 09/01/21 11:27 ALT 17 units/L (7-56) 09/01/21 11:27 Alkaline Phosphatase 41 units/L (35-129) 09/01/21 11:27 Total Protein 6.2 g/dL (6.3-8.2) L 09/01/21 11:27 Albumin 3.2 g/dL (3.9-5) L 09/01/21 11:27 Albumin/Globulin Ratio 1.1 % 09/01/21 11:27 Triglycerides 97 mg/dL (2-149) 09/01/21 11: Cholesterol 110 mg/dL (50-199) 09/01/21 11: LDL Cholesterol Direct 58 mg/dL (50-130) 09/01/21 11: HDL Cholesterol 30 mg/dL (40-59) L 09/01/21 11:27 Cholesterol/HDL Ratio 3.66 % 09/01/21 11:27 TSH 2.720 mlU/mL (0.270-4.200) 09/01/21 11:27 Last Vital Signs Temp 97.4 F L 09/16/21 07:43 Pulse 81 09/16/21 07:43 Resp 18 09/16/21 07:43 BP 150/75 09/16/21 07:43 Pulse Ox 93 09/16/21 07:43
[2021-09-17] MEDS: ACETAMINOPHEN 325 MG TAB PO SCH ×3 (04:21→10:49)
--- NOTE | 2021-09-17 07:47 | Progress Note ---
Assessment and Plan Assessment and Plan - Patient Problems (1) Vascular dementia with behavioral disturbance Current Visit: Yes Status: Acute Plan to address problem: Verbal prompting, verbal redirection, benzodiazepine therapy as clinically indicated. (2) Cerebral atherosclerosis Current Visit: Yes Status: Acute Plan to address problem: Risk factor reduction, antiplatelet therapy as clinically indicated, supportive care. (3) Encephalopathy Current Visit: Yes Status: Acute Plan to address problem: Supportive care, verbal redirection. Chronic in nature. (4) Generalized anxiety disorder Current Visit: Yes Status: Acute Plan to address problem: Benzodiazepine therapy as clinically indicated, continue medical management. (5) Malnutrition Current Visit: Yes Status: Acute Qualifiers: Protein-calorie malnutrition severity: moderate Plan to address problem: Dietary supplementation, increase protein intake. (6) Advance care planning Current Visit: Yes Status: Acute Plan to address problem: Disease education data, care plan discussed, diagnoses discussed, prognosis discussed. Patient is DNR as per request. Patient currently admitted to hospice care. +30 minutes. Subjective Date of service: 09/16/21 Principal diagnosis: Dementia with behavioral disturbances Interval history: History Interval history: 76 YO Male with Vascular Dementia with Behavioral Disturbance, Cerebral At herosclerosis, Encephalopathy, SANTA who is currently on Hospice Care. Pt is AND/DNR as per family request(). Pt is admitted to [facility] psych unit for psychiatric stabilization. Consult placed by Dr. Simmons for medical management. Patient seen and evaluated in the recreation room. Patient agitati on/confusion improved. Patient remains comfortable. Patient exhibits tangential thinking with diminished cognition. Objective - Constitutional Vitals: Vital Signs - 12hr 09/16/21 21:06 Temperature 99.0 F Pulse Rate 81 Respiratory 16 Rate Blood Pressure 140/70 [Right] O2 Sat by Pulse 94 Oximetry General appearance: Present: no acute distress, well-nourished - EENT Eyes: PERRL, EOM intact ENT: hearing intact, clear oral mucosa Ears: bilateral: normal - Neck Neck: supple, normal ROM - Respiratory Respiratory effort: normal Respiratory: bilateral: CTA - Breasts Breasts: normal - Cardiovascular Rhythm: regular Heart Sounds: Present: S1 & S2. Absent: gallop, rub Extremities: pulses intact, No edema, normal color, Full ROM - Gastrointestinal General gastrointestinal: Present: soft, non-tender, non-distended, normal bowel sounds - Genitourinary Male genitourinary: normal - Integumentary Integumentary: clear, warm, dry - Musculoskeletal Musculoskeletal: 1, strength equal bilaterally - Neurologic Neurologic: moves all extremities - Psychiatric Psychiatric: memory intact, appropriate mood/affect, intact judgment & insight - Labs CBC & Chem 7: 09/01/21 11:27 09/01/21 11:27
--- NOTE | 2021-09-17 08:33 | Discharge Summary ---
Providers - Providers Date of Admission: 08/28/21 13:00 Date of discharge: 09/17/21 Attending physician: LEE HERNÁNDEZ MD 08/28/21 13:02 Consult to Physician [CONS] Routine Comment: Consulting Provider: JET PATRICK Physician Instructions: Reason For Exam: H&p, medical management 09/13/21 09:20 Physical Therapy Evaluation and Treat [CONS] Routine Comment: Reason For Exam: Wheel chair bound Mode of Transport?: Wheelchair Primary care physician: BENEFITS COUNSELOR Hospitalization Reason for admission: Delusions Admitting Diagnosis: F22 - DELUSIONAL DISORDERS Condition: Stable Hospital course: The patient was provided inpatient psychiatric treatment with safe and supportive environment, group/individual therapy, psychiatric medication, medication adjustment, adverse effect monitor, medical evaluation, medical treatment, social service assessment, social support meeting, placement assessment and psycho-education. The patients mood, cognition, behavior, motivation, compliance to treatment and appreciation on family/social support are improved and stabilized. At the time of discharge, the patient had no suicidal ideas, no homicidal ideas, no aggressive thoughts, no endangering behavior and no debilitating adverse effects. The patient agreed on the treatment plan, understood the risk, benefit, alternative treatment, potential consequence of no treatment, and gave informed consent. Progress Note: 09/16: The patient was see this morning. He endorses depression but unable to rate. The patient denies SI/HI/ AVHs. No changes made today. 09/15: The patient was see this morning. He presents with depressive mood. When asked about sleep he states " I don't know." The patient denies SI/HI/ AVHs. No changes made today. 09/14:The patient was see this morning. He states mood as " terrible, the same old stuff." He reports sleep and appetite as ok. The patient denies SI/HI/ AVHs. No changes made today. 09/13: The patient was see this morning. He states he is doing well " I'm not a super man, I feel tired." He denies depression " 0 this morning." The patient denies SI/HI. No changes made today. 09/12:The patient was seen at breakfast. He reports sleep as fair. He states he is not doing well; states mood as slow and tired. The patient denies SI/HI. No changes made today. 09/11 The patient was seen today. He is calm and cooperative, but confused. He says he's sick to his stomach. His breakfast tray is in front of him. The patient says he slept okay. He denies SI/HI. Start Zofran ODT q8h for N/V. 09/09 The patient was seen today. He is sitting in the dayroom eating breakfast. He is much more calm today. He is confused, but not speaking as nonsensically today. He says he's hurting in his leg. He says he slept okay. 09/08 The patient was seen today. He is confused. He is irritable. He says "I'm up starting to cook breakfast but they wont let me do what I want to do." The patient has the tech at bedside with him because staff says he is trying to get out of bed, very confused, unsteady gait and talking nonsensically. The nurse medicated the patient with Chris marrufo. Will start Valproic acid 125mg po BID to help stabilize mood. 09/07 The patient was seen today. He is confused, but pleasant. He is talking about "some white stuff that's on the floor." 09/06 The patient was seen today. He is confused. He is lying in bed. He is delusional. He says "they gone kill me." He says "the window is falling on me. I'm just gone stay out of the way." 09/05 The patient was seen today. He is confused. He is lying in bed staring straight ahead. I have to nudge him to get him to respond. He then looks at me and then turns his head back straight ahead. I nudge the patient and again and asks if he's okay and why isn't he talking. He politely grabs my hand and says good morning. He says "I just got back from a ." The patient will be placed with hospice upon discharge. 09/04:The patient was seen at breakfast today. He continues to endorse depression. He denies any current suicidal/homicidal ideation and denies hallucinations. No aggressive behavior reported. No changes made today. 09/03:The patient was seen this morning. He continues to endorse depression. He denies any current suicidal/homicidal ideation and denies hallucinations. No aggressive behavior reported. No changes made today. 09/02:The patient was seen this morning. He is alert and oriented to self. He reports doing well. He denies any current suicidal/homicidal ideation and denies hallucinations. No aggressive behavior reported. 09/01:The patient was seen this morning. The patient states " I'm just here." He endorses depression rating as 7-8/10. He denies any current suicidal/homicidal ideation and denies hallucinations. 08/31: The patient was seen this morning. The patient is resting quietly in bed. Per nurse, he had an uneventful night. 08/30: The patient was seen this morning. He is calm. He continues to be confused. Unable to assess SI/HI/ AVH due to current mentation. Start Haldol 2mg IM BID. Disposition: 30 STILL A PATIENT Allergies/Adverse Reactions: Allergies No Known Allergies Allergy (Verified 08/28/21 22:01) Vital Signs: Last Vital Signs Temp 99.0 F 09/16/21 21:06 Pulse 81 09/16/21 21:06 Resp 16 09/16/21 21:06 BP 140/70 09/16/21 21:06 Pulse Ox 94 09/16/21 21:06 Last Lab: Laboratory Last Values WBC 3.5 K/mm3 (4.5-11.0) L 09/01/21 11:27 RBC 3.33 M/mm3 (3.65-5.03) L 09/01/21 11:27 Hgb 8.1 gm/dl (11.8-15.2) L 09/01/21 11:27 Hct 27.2 % (35.5-45.6) L 09/01/21 11:27 MCV 82 fl (84-94) L 09/01/21 11:27 MCH 24 pg (28-32) L 09/01/21 11:27 MCHC 30 % (32-34) L 09/01/21 11:27 RDW 18.9 % (13.2-15.2) H 09/01/21 11:27 Plt Count 350 K/mm3 (140-440) 09/01/21 11:27 Hendricks % (Auto) Construction Project Engineer 09/01/21 11:27 Add Manual Diff Complete 09/01/21 11: Total Counted 100 09/01/21 11: Seg Neuts % (Manual) 65.0 % (40.0-70.0) 09/01/21 11: Band Neutrophils % 1.0 % 09/01/21 11: Lymphocytes % (Manual) 15.0 % (13.4-35.0) 09/01/21 11: Reactive Lymphs % (Man) 1.0 % 09/01/21 11: Monocytes % (Manual) 17.0 % (0.0-7.3) H 09/01/21 11:27 Eosinophils % (Manual) 0 % (0.0-4.3) 09/01/21 11: Basophils % (Manual) 0 % (0.0-1.8) 09/01/21 11: Metamyelocytes % 1.0 % 09/01/21 11: Myelocytes % 0 % 09/01/21 11: Promyelocytes % 0 % 09/01/21 11: Blast Cells % 0 % 09/01/21 11: Nucleated RBC % Not Reportable 09/01/21 11: Seg Neutrophils # Man 2.3 K/mm3 (1.8-7.7) 09/01/21 11: Band Neutrophils # 0.0 K/mm3 09/01/21 11: Lymphocytes # (Manual) 0.5 K/mm3 (1.2-5.4) L 09/01/21 11: Abs React Lymphs (Man) 0.0 K/mm3 09/01/21 11: Monocytes # (Manual) 0.6 K/mm3 (0.0-0.8) 09/01/21 11: Eosinophils # (Manual) 0.0 K/mm3 (0.0-0.4) 09/01/21 11: Basophils # (Manual) 0.0 K/mm3 (0.0-0.1) 09/01/21 11: Metamyelocytes # 0.0 K/mm3 09/01/21 11: Myelocytes # 0.0 K/mm3 09/01/21 11: Promyelocytes # 0.0 K/mm3 09/01/21 11: Blast Cells # 0.0 K/mm3 09/01/21 11:27 WBC Morphology Not Reportable 09/01/21 11:27 Hypersegmented Neuts Not Reportable 09/01/21 11:27 Hyposegmented Neuts Not Reportable 09/01/21 11:27 Hypogranular Neuts Not Reportable 09/01/21 11:27 Smudge Cells Not Reportable 09/01/21 11:27 Toxic Granulation Not Reportable 09/01/21 11:27 Toxic Vacuolation Not Reportable 09/01/21 11:27 Dohle Bodies Not Reportable 09/01/21 11:27 Pelger-Huet Anomaly Not Reportable 09/01/21 11:27 Jeannine Rods Not Reportable 09/01/21 11:27 Platelet Estimate Consistent w auto 09/01/21 11:27 Clumped Platelets Not Reportable 09/01/21 11:27 Plt Clumps, EDTA Not Reportable 09/01/21 11:27 Large Platelets Few 09/01/21 11:27 Giant Platelets Not Reportable 09/01/21 11:27 Platelet Satelliting Not Reportable 09/01/21 11:27 Plt Morphology Comment Not Reportable 09/01/21 11:27 RBC Morphology Not Reportable 09/01/21 11:27 Dimorphic RBCs Not Reportable 09/01/21 11:27 Polychromasia Not Reportable 09/01/21 11:27 Hypochromasia 2+ 09/01/21 11:27 Poikilocytosis Not Reportable 09/01/21 11:27 Anisocytosis 1+ 09/01/21 11:27 Microcytosis Not Reportable 09/01/21 11:27 Macrocytosis Not Reportable 09/01/21 11:27 Spherocytes Not Reportable 09/01/21 11:27 Pappenheimer Bodies Not Reportable 09/01/21 11:27 Sickle Cells Not Reportable 09/01/21 11:27 Target Cells Not Reportable 09/01/21 11:27 Tear Drop Cells Not Reportable 09/01/21 11:27 Ovalocytes Not Reportable 09/01/21 11:27 Helmet Cells Not Reportable 09/01/21 11:27 [place] Bodies Not Reportable 09/01/21 11:27 [place] Rings Not Reportable 09/01/21 11:27 [place] Cells Not Reportable 09/01/21 11:27 Bite Cells Not Reportable 09/01/21 11:27 Crenated Cell Not Reportable 09/01/21 11:27 Elliptocytes Not Reportable 09/01/21 11:27 Acanthocytes (Spur) Not Reportable 09/01/21 11:27 Rouleaux Not Reportable 09/01/21 11:27 Hemoglobin C Crystals Not Reportable 09/01/21 11:27 Schistocytes Not Reportable 09/01/21 11:27 Malaria parasites Not Reportable 09/01/21 11:27 [place]io Bodies Not Reportable 09/01/21 11:27 Hem Pathologist Commnt No 09/01/21 11:27 Sodium 139 mmol/L (137-145) 09/01/21 11:27 Potassium 3.4 mmol/L (3.6-5.0) L 09/01/21 11:27 Chloride 102.3 mmol/L (98-107) 09/01/21 11:27 Carbon Dioxide 24 mmol/L (22-30) 09/01/21 11:27 Anion Gap 16 mmol/L 09/01/21 11:27 BUN 21 mg/dL (9-20) H 09/01/21 11:27 Creatinine 1.4 mg/dL (0.8-1.3) H 09/01/21 11:27 Estimated GFR 49 ml/min 09/01/21 11:27 BUN/Creatinine Ratio 15 % 09/01/21 11:27 Glucose 139 mg/dL (75-100) H 09/01/21 11:27 Hemoglobin A1c < 4.0 % (4-6) L 09/01/21 11:27 Calcium 8.2 mg/dL (8.4-10.2) L 09/01/21 11:27 Total Bilirubin 1.30 mg/dL (0.1-1.2) H 09/01/21 11:27 AST 46 units/L (5-40) H 09/01/21 11:27 ALT 17 units/L (7-56) 09/01/21 11:27 Alkaline Phosphatase 41 units/L (35-129) 09/01/21 11:27 Total Protein 6.2 g/dL (6.3-8.2) L 09/01/21 11:27 Albumin 3.2 g/dL (3.9-5) L 09/01/21 11:27 Albumin/Globulin Ratio 1.1 % 09/01/21 11:27 Triglycerides 97 mg/dL (2-149) 09/01/21 11:27 Cholesterol 110 mg/dL (50-199) 09/01/21 11:27 LDL Cholesterol Direct 58 mg/dL (50-130) 09/01/21 11:27 HDL Cholesterol 30 mg/dL (40-59) L 09/01/21 11:27 Cholesterol/HDL Ratio 3.66 % 09/01/21 11:27 TSH 2.720 mlU/mL (0.270-4.200) 09/01/21 11:27 Core Measure Documentation - Palliative Care Palliative Care/ Comfort Measures: Not Applicable - Core Measures Any of the following diagnoses?: history only - VTE Discharge Requirements Deep Vein Thrombosis/Pulmonary Embolism Present on Admission: No Exam - Constitutional Vitals: Temp Pulse Resp BP Pulse Ox 99.0 F 81 16 140/70 94 09/16/21 21:06 09/16/21 21:06 09/16/21 21:06 09/16/21 21:06 09/16/21 21:06 Plan Activity: advance as tolerated Weight Bearing Status: Weight Bear as Tolerated Care Plan Goals: Maintain good and stable mental health. Plan of Treatment: The patient should be compliant with medications, not to use drugs and not to drink alcohol.The patient understands that if suicidal ideas, homicidal ideas, or any endangering thoughts/behavior arise, they should immediately seek for emergent assistance including but not limited to crisis hot line and emergency room. Follow up with outpatient Psychiatrist and PCP within 7 - 14 days of discharge. Follow up with: PRIMARY CARE, [Primary Care Provider] - 7 Days Prescriptions: Escitalopram [Lexapro] 5 mg PO QDAY 30 Days #30 tablet
[2021-09-17] MEDS: ONDANSETRON 4 MG ODT TAB PO PRN (10:05)
[2021-09-17 10:24] VITALS: BP 166/77
[2021-09-17] MEDS: FERROUS SULFATE 325 MG TAB PO SCH (10:48)
[2021-09-17] MEDS: FOLIC ACID 1 MG TAB PO SCH (10:49)
[2021-09-17] MEDS: VALPROIC ACID 250 MG/5 ML ORAL LIQD PO SCH (10:49)
[2021-09-17] MEDS: HALOPERIDOL 2 MG TAB PO SCH (10:49)
[2021-09-17] MEDS: ESCITALOPRAM 10 MG TAB PO SCH (10:49)
== END 2021-09-17 11:07 | disposition hospice, inpatient (51) | DRG 884 ==
LOC: UNDOADMIN 16:37 → 3A 16:37 → 5A 08-28 13:00
PROVIDERS: ADMIT Psychiatry & Neurology Psychiatry; ATTEND Psychiatry & Neurology Psychiatry
DX: F01.51 Vascular dementia, unspecified severity, with behavioral disturbance (principal); G93.40 Encephalopathy, unspecified; E44.0 Moderate protein-calorie malnutrition; F22 Delusional disorders; F41.1 Generalized anxiety disorder; I67.2 Cerebral atherosclerosis; Z66 Do not resuscitate; Z68.22 Body mass index [BMI] 22.0-22.9, adult; Z79.899 Other long term (current) drug therapy
CPT/HCPCS: 36415; 80053; 80061; 83036; 84443; 85007; 85025; G0378; J3490; J1630; J2060; J3486; Q0162